=== PATIENT | male | born 1955 | race Caucasian/White ===

== ENCOUNTER 2022-03-30 09:52 | Outpatient (CLI) | payer MEDICARE, BC, SELFPAY ==
--- NOTE | 2022-03-30 10:05 | USCV_ITS ---
Jaleel Rhodes Age: 66 Gender: M : 1955 Exam Date: 03/30/2022 10:37 Ordering Phys: Orion Summers XX Technologist: Morteza Avila Exam Location: [facility] – [place] Indication: A FIB BP: 133 / 78 HR: 110 Rhythm: Atrial fibrillation Technical Quality: Adequate MEASUREMENTS (Male / Female) Normal Values 2D ECHO LV Diastolic Diameter PLAX 5.6 cm 4.2 - 5.9 / 3.9 - 5.3 cm LV Systolic Diameter PLAX 4.7 cm IVS Diastolic Thickness 0.8 cm 0.6 - 1.0 / 0.6 - 0.9 cm IVS Systolic Thickness 0.8 cm LVPW Diastolic Thickness 1.2 cm 0.6 - 1.0 / 0.6 - 0.9 cm LVPW Systolic Thickness 1.4 cm LVOT Diameter 2.0 cm LV Ejection Fraction 2D Teich 33.3 % LV Ejection Fraction MOD 2C 31.0 % LV Ejection Fraction 2C AL 31.4 % LA Diameter 3.3 cm LA Width 3.5 cm LA Height 5.6 cm RA Width 4.5 cm RA Height 4.6 cm Aorta at Sinotubular Diameter 2.1 cm IVC Diameter 1.6 cm M-MODE Aortic Annulus Diameter 2.5 cm LA Ao Ratio MM 1.4 MV E Point Septal Separation 0.6 cm DOPPLER AV Peak Velocity 138.0 cm/s LVOT Peak Velocity 70.0 cm/s AV Area Cont Eq vti 1.9 cm squared AV Area Cont Eq pk 1.6 cm squared MV Peak Velocity 107.0 cm/s MV E' Velocity 11.0 cm/s TR Peak Velocity 258.6 cm/s TR Peak Gradient 26.7 mmHg TR Mean Velocity 183.8 cm/s TR Mean Gradient 13.7 mmHg TR Velocity Time Integral 53.6 cm Right Atrial Pressure 3.0 mmHg Pulmonary Artery Systolic Pressu 29.7 mmHg RV Acceleration Time 0.1 s RV Ejection Time 0.2 s RV AcT/ET 0.4 FINDINGS Left Ventricle Severe diffuse hypokinesia of the left-ventricular with an ejection fraction of 31%. Mildly dilated LV cavity. Right Ventricle Normal right ventricular size and systolic function. Right Atrium Mildly increased right atrial size. Left Atrium Mildly increased left atrial size. Mitral Valve Thickened mitral valve. Mild mitral valve regurgitation. Aortic Valve Thickened aortic valve. Tricuspid Valve Trace tricuspid valve regurgitation. Pulmonic Valve Could not be visualized well Pericardium Normal pericardium without effusion. Aorta Normal ascending aorta dimension. IVC Normal inferior vena cava. CONCLUSIONS Severe diffuse hypokinesia of the left-ventricular with an ejection fraction of 31%. Mildly dilated LV cavity. Normal RV size and ejection fraction. Mild biatrial enlargement. Thickened aortic and mitral valves with mild mitral annular calcification. Mild mitral valve regurgitation. There is no pericardial effusion. There are no intracardiac masses. No similar previous studies are available for comparison Dr Moise Collins MD [facility] (Electronically Signed) Final Date: 31 March 2022 10:40 S
== END 2022-03-30 09:53 | disposition home or self-care (01) ==
PROVIDERS: PCP Nurse Practitioner Family; Visit Provider Family Medicine
DX: I48.91 Unspecified atrial fibrillation (principal); I08.0 Rheumatic disorders of both mitral and aortic valves
CPT/HCPCS: 93306

== ENCOUNTER → 2022-04-06 12:40 | Outpatient (BNVA) | payer MEDICARE, BC, SELFPAY | PROVIDERS: PCP Family Medicine; Visit Provider Internal Medicine Cardiovascular Disease | DX: I50.9 Heart failure, unspecified (principal); I48.91 Unspecified atrial fibrillation; F17.210 Nicotine dependence, cigarettes, uncomplicated; E66.9 Obesity, unspecified; Z68.35 Body mass index [BMI] 35.0-35.9, adult | CPT/HCPCS: 99204; 99205 ==

== ENCOUNTER 2022-04-20 06:11 | Outpatient (CLI) | payer MEDICARE, BC, SELFPAY ==
[2022-04-20 07:39] LABS: Basophils # 0.1 10^3/uL (0.0-0.1); Basophils % 0.5 %; Eosinophils # 0.3 10^3/uL (0.0-0.8); Eosinophils % 2.5 %; Hematocrit 52.3 % (42.0-52.0); Hemoglobin 17.7 g/dL (11.7-16.6); Lymphocytes # 2.1 10^3/uL (0.8-4.8); Lymphocytes % 19.3 %; Mean Corpuscular HGB Conc 33.8 g/dL (30.0-36.0); Mean Corpuscular Hemoglobin 30.5 pg (28.0-34.0); Mean Platelet Volume 10.9 fL (7.4-10.4); Monocytes # 1.1 10^3/uL (0.2-0.9); Monocytes % 9.9 %; Neutrophils # 7.22 10^3/uL (1.8-7.7); Neutrophils % 67.4 %; Nucleated Red Blood Cells % 0 %; Platelet Count 322 10^3/cmm (130-400); Red Blood Count 5.81 10^6/uL (4.1-5.3); Red Cell Distribution Width 13.8 % (12.1-15.1); White Blood Count 10.7 10^3/uL (4.0-10.0)
[2022-04-20 08:03] LABS: Anion Gap 15.5 (5-19); Blood Urea Nitrogen 19 mg/dL (8-23); Carbon Dioxide 23 mmol/L (22-29); Chloride 104 mmol/L (98-107); Glomerular Filtration Rate 83.9 mL/min (90-130); Glucose 129 mg/dL (65-115); Osmolality Calculated 290 mOsm/kg (285-295); Potassium 4.5 mmol/L (3.5-5.1); Sodium 138 mmol/L (136-145)
--- NOTE | 2022-04-20 09:09 | PC.NURSE ---
Around 0700: Patient here to have R/LHC with Dr. Winston. Patient failed to hold Xarelto prior to procedure, states last taken dose was on 04/[address] Winston notifed, orders received to reschedule patient. Patient rescheduled for 04/25 at 0830.
[2022-04-20 10:43] LABS: NT Pro B Type Natriuretic Pept 594 pg/mL (0-125)
== END 2022-04-20 06:12 | disposition home or self-care (01) ==
LOC: CCL 06:12
PROVIDERS: PCP Family Medicine; Visit Provider Internal Medicine Cardiovascular Disease
DX: R07.9 Chest pain, unspecified (principal); R06.02 Shortness of breath; Z53.8 Procedure and treatment not carried out for other reasons
CPT/HCPCS: 80048; 83735; 83880; 85025; J2250; J3010

== ENCOUNTER 2022-04-25 07:22 | Outpatient (CLI) | payer MEDICARE, BC, SELFPAY ==
[2022-04-25] VITALS (12 sets, daily range): BP systolic 114–140; BP diastolic 66–95; PULSE 84–99; RESP 15–19; TEMP 36.8; O2SAT 95–99; BMI 35.3
--- NOTE | 2022-04-25 07:30 | XACV_ITS ---
Exam Room: [facility] Ht: 188 cm Wt: 125 kg BSA: 2.59 m2 Gender: Male : 1955 Any Known Allergies: No known allergies Exam Priority: Routine Indication(s): - Cardiomyopathy Procedure(s): Procedure Description: Diagnostic procedure Procedure Description: Left Heart Catheterization Procedure Description: Right Heart Catheterization Procedure Description: Left ventriculography Procedure Description: O2 saturation Procedure Description: Coronary Angiography Diagnostic Cath Status: Elective Diagnostic Findings * No disease noted in the Left Main, Left Anterior Descending or Right coronary arteries. Minor luminal irregularities in circumflex artery. * Coronary angiography shows right dominance. Conclusions 1. No disease noted in the Left Main, Left Anterior Descending or Right coronary arteries. Minor luminal irregularities in circumflex artery. 2. 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 Recommendations * Continue current medical management and risk factor modification. Left Ventriculography Findings: * Left Ventriculogram not performed to minimize contrast use. Pressures Phase:Rest AO : 138 / 83 ( 106 ) @ 10:41:00 AM 132 / 81 ( 102 ) @ 10:41:00 AM 130 / 80 ( 101 ) @ 10:41:00 AM 131 / 82 ( 102 ) @ 10:41:00 AM LV : 138 / 3 / 8 @ 10:41:00 AM 141 / 1 / 14 @ 10:41:00 AM RV : 43 / 10 / 15 @ 10:12:00 AM PA : 47 / 21 ( 31 ) @ 10:11:00 AM RA : a wave = 19 v wave = 19 mean = 18 @ 10:13:00 AM PCW : a wave = 24 v wave = 24 mean = 22 @ 10:10:00 AM Hemodynamic Findings Normal pulmonary vascular resistance. Right atrial pressures are elevated at 18 mmHg. Pulmonary artery pressures are mildly elevated. Mean pulmonary artery pressure of 31 mmHg.. Pulmonary artery wedge pressures are mildly elevated at 22 mmHg.. No evidence of step up in saturations. O2 Content Phase:Rest PA : O2 Content O2: 62.0 @ 10:41:00 AM Saturations Phase:Rest AO : 84 @ 10:41:00 AM RA : 71 @ 10:41:00 AM RV : 64 @ 10:41:00 AM PA : 62 @ 10:41:00 AM Cardiac Output Phase:Rest Afsaneh : 6 @ 10:05:51 AM Afsaneh Cardiac Index: 2 @ 10:05:51 AM Flow Phase:Rest Qp : 6 @ 10:05:51 AM Qs : 11 @ 10:05:51 AM Valves Phase:DefaultPhase AV : 4.0 @ 10:05:50 AM 4.0 @ 10:05:51 AM AV Mean Gradient: 16.0 @ 10:05:50 AM 16.0 @ 10:05:51 AM AV Flow: 500 @ 10:05:50 AM AV Area: 2.8 @ 10:05:51 AM AV Area Index: 1.13 @ 10:05:51 AM Clinical Evaluation EBL: 5mL-10mL Procedural Details Procedure Consent Obtained. Admit Source: Out Patient. Pre-Procedure Time Out. Identified patient by full name and date of as verbalized by the patient/guarantor. Does the consent match the physician's order: Yes. Accurate & Complete Informed Consent: Yes. Inpatient/Outpatient History & Physical on Chart: Yes. If H&P is completed, is and addenduem needed: No; If yes, is the addendum complete: N/A. Visualize and Verify Site with Patient/Guarantor: N/A. Relevant Radiology Images available: N/A. The risks, benefits, and alternatives of sedation and/or procedure were discussed by physician. The patient agrees to continue. Procedure started. [facility] Clinical Fraility Score: 3: Managing Well. 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 Chest Pain Symptom Assessment: Atypical Angina. Cardiovascular Instability: No, stable. Correct patient, site and procedure confirmed by cath team. Current diagnosis: Cardiomyopathy. PERRLA. Strong, equal hand audio visual manager bilaterally. Lungs clear x 5 lobes. IV Site on Arrival: 18 gauge in the right anticubital. IV Site on Arrival: 20 gauge in the left anticubital. IV Fluids: 0.9% NaCl at KVO. 0 mL infused prior to director labor standards. Pre Procedural Pulses: bilateral dorsalis pedis was Doppled. Pre Procedural Pulses: bilateral posterior tibial was Doppled. Pre Procedural Pulses: bilateral radial was 3+. Oxygen off in preparation for RHC. right groin was prepped with chloroprep then draped in the usual sterile fashion. right radial was prepped with chloroprep then draped in the usual sterile fashion. right brachial was prepped with chloroprep then draped in the usual sterile fashion. Baseline sample Acquired. HR: 98 BPM. Physician notified. Current Diagnosis : Chest Pain. Baseline sample Acquired. HR: 108 BPM. Family updated by MD prior to the start of the procedure. Physician arrived. Equipment: 5F - Radial. Equipment: 6F - Radial. Cardiac Cath Pack. ACIST Manifold Kit Model BT 2000. Heparinized Saline (2 units/mL), 1000 mL bag. Physician scrubbed in. Immediate Pre-Procedure Time Out. Correct Patient: Yes; Correct Procedure: Yes; Correct Site: Yes; Correct Patient Position: Yes; Correct Supplies: Yes; Dried Flammable Prep: Yes; Blood Products Available: N/A;. Lidocaine 1% infiltrated to the right brachial. Wired access used from IV. Ainsworth-Tianna MON catheter inserted. Oximetry samples were obtained. Normal venous range: 60-85%. Normal arterial range: 95-100%. Pressure measurements obtained. Pressure measurements obtained. Oximetry samples were obtained. Normal venous range: 60-85%. Normal arterial range: 95-100%. Oximetry samples were obtained. Normal venous range: 60-85%. Normal arterial range: 95-100%. Pressure measurements obtained. Ainsworth-Tianna out. Lidocaine 1% infiltrated to the right radial. Arterial access obtained. Oximetry samples were obtained. Normal venous range: 60-85%. Normal arterial range: 95-100%. A 5 ethiopian TIG catheter in over wire. Multiple views taken of left coronary artery. Catheter redirected to the RCA. Multiple views taken of right coronary artery. MD Attempting to cross Valve into LV over the wire. EDP Sample taken: LV 138/3,8; HR: 102 BPM; SpO2: 98%. Pullback taken: LV 141/1,14; AO 138/83(106); Mean: 16mmHg, Peak to Peak: 4mmHg, SEP: 12sec/min; HR: 95 BPM; SpO2: 95%. Catheter removed over the standard wire. Physician review of films. Physician scrubbed out. A Manual Compression was successful obtaining hemostatsis at the Right Brachial Vein insertion site. A TR Band was successful obtaining hemostatsis at the Right Radial artery insertion site. Venous Sheath removed and manual pressure held until hemostasis was achieved. Sterile 4x4 and Op-site applied to the puncture site. No oozing or hematoma noted. Post sheath removal instructions were given and the patient verbalized understanding. TR band placed. Hemostasis obtained. Post Procedure: Pulses reassessed and unchanged. PERRLA. Strong, equal hand audio visual manager bilaterally. No VTE prophylaxis required. Post-op diagnosis: Non Obstuctive CAD. Complications: None. [id number]. Medication waste Fentany 50 mcg Heparin 1000 units Nitro 49.8 mg Lidocaine 2 ml. Total IV fluids: 60 mL. Fluoro: 8:00. Contrast type used: Omnipaque 300 mg/mL, 150 mL bottle. Estimated blood loss: 5mL-10mL. Responsiveness - Normal response to verbal stimuli; alert and oriented, PERRLA. Airway - Unaffected, no intervention required; spontaneous ventilation. Circulation: W/N/L, pulses unchanged. Nausea/Vomiting: No. Procedure completed. Patient transferred by wheelchair to CPRU. Vital chart was stopped. Access Site Site: Right Brachial Vein Sheath Size: 6 Fr Hemostasis Method: Manual Compression Hemostasis Success: Successful Site: Right Radial artery Sheath Size: 6 Fr Hemostasis Method: TR Band Hemostasis Success: Successful Procedure Medications Start: 9:10 AM Stop: 9:10 AM Medication: Versed Amount: 1 mg Route: I.V. Start: 9:01 AM Stop: 9:01 AM Medication: Versed 1 mg and Fentanyl 25 mcg Amount: 1 Route: I.V. Start: 9:20 AM Stop: 9:20 AM Medication: Fentanyl Amount: 25 mcg Route: I.V. Start: 9:27 AM Stop: 9:27 AM Medication: Nitrogylcerin Amount: 200 mcg Route: I.A. Start: 9:30 AM Stop: 9:30 AM Medication: Heparin Amount: 5000 units Route: I.V. I, the attending physician, have reviewed and verified all procedure medications. Yes, all medications given per verbal order History/Risk Factors Hypertension: No Dyslipidemia: No Peripheral Arterial Disease (PAD): No Myocardial Infarction (AZ): No Obesity: Yes Renal Disease: No Tobacco Use: Current/Recent(w/in 1 year) Prior Interventions PCI: No CABG: No Valve Surgery: No Report Signatures Finalized by Kiara Winston MD on 04/26/2022 04:19 PM
[2022-04-25] MEDS: diphenhydrAMINE 50 mg Capsule PO (08:12)
--- NOTE | 2022-04-25 08:47 | W.PM.OPSUD ---
Surgery/Procedure H&P Update DATE OF PROCEDURE: April 25, 2022 DATE H&P PERFORMED: 04/06/22 H&P UPDATE INFORMATION: I have reviewed H&P completed within last 30 days, I have examined patient prior to procedure and No changes to prior documentation PREOP DIAGNOSIS: Newly diagnsoed cardiomyopathy PRIMARY INDICATION FOR PROCEDURE: Newly diagnosed cardiomyopathy PLANNED PROCEDURE: Operation Date: 04/25/22 08:30 Proposed Procedures p Cardiac Catheterization(Bilateral) - Kiara Winston MD PATIENT REASSESSED PRIOR TO SEDATION, WITH NO CHANGE NOTED: Yes PHYSICAL EXAM: alert, oriented x 3, clear to auscultation bilaterally and regular rate & rhythm AIRWAY EVAL/ANESTHESIA PLAN: normal airway (Airway 4), ASA III, Monitored Anesthesia, Local Anesthesia, Risks, benefits & alternatives of sedation and/or procedure discussed and Patient agrees to continue as planned
[2022-04-25 09:41] LABS: Alveolar-Arterial Oxygen Gradi 9.6 mmHg (5-10); Arterial Blood Gas Hematocrit 52.7 % (42-52); Blood Gas Allen Test Pos; Blood Gas Operator Identificat glc; Blood Gas Sample Type Arterial; Carboxyhemoglobin 2.8 %THgb (0.4-20.1); HGB O2 Sat 68.9 % (95-100); Methemoglobin 0.6 % (0.4-1.5); Total Hemoglobin 17.2 g/dL (14-18)
[2022-04-25 09:47] LABS: Alveolar-Arterial Oxygen Gradi 8.7 mmHg (5-10); Arterial Blood Gas Hematocrit 59.7 % (42-52); Blood Gas Allen Test Pos; Blood Gas Operator Identificat glc; Blood Gas Sample Type Arterial; Carboxyhemoglobin 2.7 %THgb (0.4-20.1); Methemoglobin 0.6 % (0.4-1.5); Total Hemoglobin 19.5 g/dL (14-18)
[2022-04-25 09:51] LABS: Alveolar-Arterial Oxygen Gradi 8.9 mmHg (5-10); Arterial Blood Gas Hematocrit 52.6 % (42-52); Blood Gas Operator Identificat glc; Blood Gas Sample Type Arterial; Carboxyhemoglobin 2.8 %THgb (0.4-20.1); HGB O2 Sat 61.6 % (95-100); Methemoglobin 0.6 % (0.4-1.5); Total Hemoglobin 17.2 g/dL (14-18)
[2022-04-25 09:54] LABS: Blood Gas Operator Identificat glc; Blood Gas Sample Type Arterial; Carboxyhemoglobin 2.7 %THgb (0.4-20.1); Methemoglobin 0.6 % (0.4-1.5)
[2022-04-25 09:58] LABS: Blood Gas Sample Site AO
[2022-04-25 09:58] LABS: Blood Gas Sample Site RV
[2022-04-25 09:59] LABS: Blood Gas Sample Site PA
[2022-04-25 09:59] LABS: Blood Gas Sample Site RA
--- NOTE | 2022-04-25 10:04 | SUR.PHASEII ---
RECEIVED THE PATIENT BACK FROM THE SAND WORKER S/P R & LHC VIA WHEELCHAIR. PATIENT AMBULATED TO THE BED. PLEATING SUPERVISOR PLACED AND VITAL SIGNS OBTAINED. PATIENT A & O X3. SLIGHTLY DROWSY. BULKY PRESSURE DRESSING TO THE RIGHT AC FROM THE 6 FR VENOUS SHEATH. TR BAND TO THE RIGHT RADIAL INTACT. NO BLEEDING OR HEMATOMA NOTED. ACTIVITY RESTRICTIONS GIVEN TO THE PATIENT WITH HIS VERBALIZATION. FAMILY AT BEDSIDE ALONG WITH DR DONAHUE. NO OTHER ASSESSMENT CHANGES NOTED FROM PRE CATH.
--- NOTE | 2022-04-25 11:16 | SUR.PHASEII ---
PATIENT AMBULATED TO THE RESTROOM TO VOID A 1100. ONCE BACK TO THE ROOM, THIS NURSE STARTED LETTING THE AIR OUT OF THE TR BAND PER PROTOCOL. NO OTHER ASSESSMENT CHANGES
--- NOTE | 2022-04-25 12:03 | SUR.PHASEII ---
PATIENT UP AT THE BEDSIDE TO EAT LUNCH. TR BAND OFF PER PROTOCOL. SITE SOFT WITH NO BLEEDING OR HEMATOMA NOTED. PALPABLE RADIAL PULSE. BANDAID APPLIED TO THE SITE. ACTIVITY INSTRUCTIONS GIVEN TO THE PATIENT WITH HIS UNDERSTANDING VERBALIZED. SPOUSE AND DAUGHTER REMAIN AT BEDSIDE.
[2022-05-03 10:25] LABS: Blood Urea Nitrogen 14 mg/dL (8-23); Calcium 9.2 mg/dL (8.5-10.5); Carbon Dioxide 28 mmol/L (22-29); Chloride 99 mmol/L (98-107); Glomerular Filtration Rate 96.1 mL/min (90-130); Glucose 147 mg/dL (65-115); Osmolality Calculated 285 mOsm/kg (285-295); Sodium 136 mmol/L (136-145)
[2022-05-03 10:31] LABS: Anion Gap 13.7 (5-19); Potassium 4.7 mmol/L (3.5-5.1)
== END 2022-04-25 13:06 | disposition home or self-care (01) ==
PROVIDERS: PCP Family Medicine; Visit Provider Internal Medicine Cardiovascular Disease
DX: I42.9 Cardiomyopathy, unspecified (principal); I50.9 Heart failure, unspecified; E66.9 Obesity, unspecified; Z68.35 Body mass index [BMI] 35.0-35.9, adult; I48.91 Unspecified atrial fibrillation; Z79.82 Long term (current) use of aspirin; F17.210 Nicotine dependence, cigarettes, uncomplicated
CPT/HCPCS: 36415; 82810; 93460; 96360; 96361; 99152; 99153; C1751; C1769; C1887; C1894; J1644; J2250; J3010; J3490; J7030; Q0163; Q9967

== ENCOUNTER → 2022-05-03 08:55 | Outpatient (BNVA) | payer MEDICARE, BC, SELFPAY | PROVIDERS: PCP Family Medicine; Visit Provider Nurse Practitioner Family | DX: I48.91 Unspecified atrial fibrillation (principal); I27.20 Pulmonary hypertension, unspecified; I50.9 Heart failure, unspecified; F17.210 Nicotine dependence, cigarettes, uncomplicated | CPT/HCPCS: 80048; 99214 ==

== ENCOUNTER → 2022-08-10 14:24 | Outpatient (BNVA) | payer MEDICARE, SELFPAY | PROVIDERS: PCP Family Medicine; Visit Provider Internal Medicine Cardiovascular Disease | DX: I50.9 Heart failure, unspecified (principal); I48.91 Unspecified atrial fibrillation; E66.9 Obesity, unspecified; Z68.34 Body mass index [BMI] 34.0-34.9, adult | CPT/HCPCS: 36415; 80048; 80162; 83735; 83880; 99214 ==

== ENCOUNTER 2022-09-13 13:10 | Outpatient (CLI) | payer MEDICARE, SELFPAY ==
--- NOTE | 2022-09-13 13:30 | USCV_ITS ---
Jaleel Rhodes Age: 66 Gender: M : 1955 Exam Date: 09/13/2022 13:37 Ordering Phys: Kiara Winston MD ([email or web address]) Technologist: Sinai Cortez [place] [facility] [place]: Evaluate LV function BP: 148 / 88 HR: 121 Rhythm: Atrial fibrillation Technical Quality: Adequate MEASUREMENTS (Male / Female) Normal Values 2D ECHO LV Diastolic Diameter PLAX 5.4 cm 4.2 - 5.9 / 3.9 - 5.3 cm LV Systolic Diameter PLAX 3.1 cm IVS Diastolic Thickness 1.0 cm 0.6 - 1.0 / 0.6 - 0.9 cm IVS Systolic Thickness 1.3 cm LVPW Diastolic Thickness 0.9 cm 0.6 - 1.0 / 0.6 - 0.9 cm LVPW Systolic Thickness 1.7 cm LVOT Diameter 2.1 cm LV Ejection Fraction 2D Teich 72.4 % LV Ejection Fraction MOD 2C 47.4 % LV Ejection Fraction 2C AL 49.8 % LA Diameter 5.0 cm LA Width 4.4 cm LA Height 5.9 cm RA Width 4.3 cm RA Height 4.8 cm Aorta at Sinotubular Diameter 3.4 cm FINDINGS Left Ventricle Normal left ventricular cavity size. Mildly decreased left ventricular systolic function. Left ventricular ejection fraction is estimated at 45-50%. Mild global hypokinesis. Right Ventricle Normal right ventricular size and systolic function. Right Atrium Normal right atrial size. Left Atrium Moderately increased left atrial size. Mitral Valve Mild mitral annular calcification. Structurally normal mitral valve. Aortic Valve Structurally normal trileaflet aortic valve. Tricuspid Valve Structurally normal tricuspid valve. Pulmonic Valve Pulmonic valve not well visualized. Pericardium No pericardial effusion. Aorta Normal size aortic root and proximal ascending aorta. IVC Inferior vena cava not visualized. CONCLUSIONS 1. This is a technically difficult study. Optison was used per protocol. 2. Normal left ventricular cavity size. Mildly decreased left ventricular systolic function. Left ventricular ejection fraction is estimated at 45-50%. Mild global hypokinesis. 3. When compared to study dated 03/30/22, left ventricular systolic function has improved from 31% then. Kiara Winston MD (Electronically Signed) Final Date: 19 September 2022 17:35 S
[2022-09-13] MEDS: perflutren protein-a microsphr 0.22 mg/mL SDV 3 mL IV (14:38)
== END 2022-09-13 13:11 | disposition home or self-care (01) ==
LOC: RAD 13:11
PROVIDERS: PCP Family Medicine; Visit Provider Internal Medicine Cardiovascular Disease
DX: I50.9 Heart failure, unspecified (principal)
CPT/HCPCS: C8924; Q9956

== ENCOUNTER → 2022-11-09 14:27 | Outpatient (BNVA) | payer MEDICARE, SELFPAY | PROVIDERS: PCP Family Medicine; Visit Provider Nurse Practitioner Family | DX: I48.91 Unspecified atrial fibrillation (principal); F17.210 Nicotine dependence, cigarettes, uncomplicated; I50.9 Heart failure, unspecified; Z79.01 Long term (current) use of anticoagulants | CPT/HCPCS: 99214 ==

== ENCOUNTER 2023-03-27 15:59 | Emergency (ER) | payer MEDICARE, SELFPAY ==
--- NOTE | 2023-03-27 16:04 | ECG_ITS ---
Test Date: 2023-03-27 Pat Name: Jaleel Rhodes Department: Room: Gender: Male Director Independent: : 1955 Requested By: Ryder Pennington Order Number: [id number] Belen MD: Moise Collins M.D. Measurements Intervals [place] Rate: 107 P: 0 [place]: 0 QRS: 11 QRSD: 102 T: 4 QT: 334 QTc: 446 Interpretive Statements ATRIAL FIBRILLATION WITH RAPID VENTRICULAR RESPONSE NONSPECIFIC ST & T-WAVE ABNORMALITY ABNORMAL RHYTHM ECG No previous ECG available for comparison Electronically Signed On 03-28-2023 19:59:03 CDT by Moise Collins M.D. [id number]
[2023-03-27 16:06] VITALS: BP 122/65; PULSE 107; RESP 17; TEMP 36.4; O2SAT 96; BMI 33.7
--- NOTE | 2023-03-27 16:24 | ED_ITS ---
HPI - Chest Pain General: Chief Complaint: Chest Pain Stated Complaint: chest and back pain Time Seen by Provider: 03/27/23 16:22 Source: patient Mode of arrival: ambulatory Limitations: no limitations History of Present Illness: This patient presents to the emergency department because of chest pain. He states the chest pain has been present for approximately 2 weeks continuous. He states is not affected by activity deep breaths etc. He states it is a dull ache and is present continuously. He denies any inciting events such as lifting twisting turning falls or other injury. He does deny this to be ripping or tearing in nature. He is a current smoker denies cough or fever. He has no notable history of atrial fibrillation or congestive heart failure and has been faithful to all his medications. He denies any associated sweating nausea vomiting etc. He does have heartburn in the past but this does not feel like heartburn type pain that he is experienced. Cotton he is had normal urinary bowel habits and no other constitutional complaints. MD complaint: chest heaviness Timing of current episode: constant Quality: heaviness Associated symptoms: Deny abdominal pain, dyspnea, fever(s), nausea, palpitations or vomiting Risk Factors: Coronary artery disease risk factors: smoking history Review of Systems Const: Denies: fever(s) or chills ENMT: Denies: throat pain, odynophagia, nasal congestion or nasal obstruction Card: Reports: chest pain and irregular heart rhythm; Denies: palpitations, dyspnea on exertion or orthopnea Resp: Denies: dyspnea, productive cough, non-productive cough or wheezing GI: Denies: abdominal pain, nausea, vomiting or diarrhea : Denies: flank pain, difficulty urinating or dysuria Musc: Denies: neck pain, extremity pain or extremity swelling Skin/Breast: Denies: rash Neuro: Denies: headache(s), numbness in extremities or weakness in extremities PFS ED PFSH: Medical History Atrial fibrillation CHF (congestive heart failure), NYHA class III Obesity Tobacco abuse Social History Smoking and tobacco status: current every day smoker (0.5 ppd X >50 years) cigarettes Packs smoked per day: 0.5 [ Other cigarette details: >50 years] Physical Exam Narrative: EXAM NARRATIVE: Healthy-appearing individual who answers questions in a goal-directed fashion and appears to be comfortable. Const: COMMON NORMALS: no acute distress, patient oriented x3 and alert GENERAL APPEARANCE: cooperative and comfortable NUTRITIONAL APPEARANCE: overweight HENMT: COMMON NORMALS: normocephalic, Normal nasal mucous membranes and turbinates present, moist oral mucous membranes and oropharynx normal HEAD & SCALP: normocephalic FACE & SINUS: normal facial exam NOSE: Normal nasal mucous membranes and turbinates present Eye: COMMON NORMALS: Equal, round and reactive pupils present, EOMs intact bilaterally and conjunctivae normal CONJUNCTIVA: Yes conjunctivae normal PUPIL: Yes Equal, round and reactive pupils present Neck/C-Spine: COMMON NORMALS: full ROM, no meningeal signs and Thyroid normal THYROID: Thyroid normal Chest: COMMONS NORMALS: normal inspection of the chest, normal palpation of entire chest wall and normal inspection of the breasts Breast/axilla inspecti on: Yes normal inspection of the breasts Resp: COMMON NORMALS: normal respiratory effort, No retractions, No use of accessory muscles and clear to auscultation bilaterally AUSCULTATION: clear to auscultation bilaterally Cardio: COMMON NORMALS: regular rate, No murmurs present (Cardio) and Peripheral pulses 2+ throughout RATE: regular rate PERIPHERAL PULSES: Peripheral pulses 2+ throughout GI: COMMON NORMALS: Normal to inspection, nondistended, normoactive bowel sounds present, Soft to palpation and non-tender PALPATION: Yes Soft to palpation : COMMON NORMALS: Yes no CVA tenderness BLADDER/KIDNEY EXAM: Yes no CVA tenderness Back/Pelvis: COMMON NORMALS: no CVA tenderness, thoracic and lumbar spine normal to inspection, no thoracic nor lumbar tenderness, thoraco-lumbar ROM normal and straight leg raise negative bilaterally Extremity: COMMON NORMALS: normal to inspection, full ROM, capillary refill normal, no clubbing, cyanosis or edema, no calf tenderness and no pedal edema Neuro: COMMON NORMALS: patient oriented x3, moves all extremities, no focal motor deficits and no sensory deficits noted SENSORIUM/ORIENTATION: Yes alert MENINGEAL SIGNS: Yes no meningeal signs CRANIAL NERVES: Yes CN normal except as noted Psych: COMMON NORMALS: mental status grossly normal Skin: COMMON NORMALS: no rashes or lesions noted, no wounds and turgor normal GENERAL SKIN EXAM: no rashes or lesions noted and turgor normal Course Reevaluation(s): Reevaluation #1: Patient CT scan and other findings were reviewed. I had a discussion with patient and accompanying family regarding his CT scan results and implications and likely diagnosis. I answered questions to the best of my ability at this time but stated that additional work-up to include oncology and pulmonology will be important to get a definitive diagnosis and then a treatment plan. They agreed to start with our resources here locally and then either continue therapy and/or be referred as indicated. He is stable at this time. I will provide him analgesics for his pain. Again no evidence of thromboembolic disease, great vessel vessel disease, ACS, pneumonia or other potential etiologies of his presentation. Time: 19:39 Vital Signs: Vital signs: Vital Signs Temperature 97.5 F L 03/27/23 16:06 Pulse Rate 99 03/27/23 17:30 Respiratory Rate 23 H 03/27/23 17:30 Blood Pressure 148/92 03/27/23 17:30 Pulse Oximetry 90 03/27/23 17:30 Oxygen Delivery Me thod Room Air 03/27/23 17:17 MDM - Chest Pain Medical Decision Making Patient presents to the emergency department because of 2 weeks of chest heaviness and associated back pain. Has a history of atrial fibrillation as well as CHF. He is currently a tobacco user. There was no associated findings such as cough fever weight loss etc. Differential diagnosis included ACS, thromboembolic phenomena, and pneumonia, CHF, mass lesion etc. Work-up was initiated to evaluate for these possible etiologies. EKG, troponins other ancillary laboratories were reassuring. Has a nature of his symptoms a contrasted CT was obtained which did reveal right chest mass with potential metastasis to vertebral column and potential involvement of adrenals either as a secondary or primary etiology. This information was shared with patient and family. He will be discharged to home with consultations placed with case management for oncology and pulmonology. All questions were answered to the best of my ability and he is stable at this time to be discharged. Medical Records I reviewed the patient's medical records. Lab Data I reviewed the patient's lab results. 03/27/23 16:58 03/27/23 16:58 Radiology Impressions Chest CTA 03/27/23 16:57 IMPRESSION: 1. No pulmonary embolism. 2. Spiculated lesion in the right apical lung representing likely a neoplasm measuring 5.3 x 6.4 x 5.6 cm. 3. Mediastinal lymphadenopathy. 4. Bilateral adrenal nodules, likely metastatic with surrounding fat stranding may represent superimposed infection/inflammation. 5. Sclerosis of T5 and T6 vertebra likely representing metastatic disease. COMMENTS: 1. Consistent with the [employer]'s Incidental Findings Committee white paper (J Am Kya Radiol 2018): Any incidental renal lesion less than 1 cm or classified as too small to characterize, or any incidental cystic renal lesion characterized as simple-appearing, is likely benign. No follow-up imaging is recommended for these lesions per consensus recommendations based on imaging criteria. 2. In the absence of a history or active diagnosis of lung cancer, it is recommended that this patient with emphysema be evaluated for enrollment in a low dose CT lung cancer screening program. Laboratory Results WBC 11.42 10^3/uL (3.29-11.43) 03/27/23 16:58 RBC 5.33 10^6/uL (3.85-5.65) 03/27/23 16:58 Hgb 16.10 g/dL (11.27-16.99) 03/27/23 16:58 Hct 48.9 % (37-53) 03/27/23 16:58 MCV 91.7 fl (82-101) 03/27/23 16:58 MCH 30.2 pg (27-33) 03/27/23 16:58 MCHC 32.9 g/dL (30-55) 03/27/23 16:58 RDW 13.4 % (12.1-15.1) 03/27/23 16:58 Plt Count 279 10^3/cmm (157-399) 03/27/23 16:58 MPV 10.8 fL (7.4-10.4) H 03/27/23 16:58 Neut % (Auto) 73.2 % 03/27/23 16:58 Lymph % (Auto) 14.2 % 03/27/23 16:58 Bremer % (Auto) 9.3 % 03/27/23 16:58 Eos % (Auto) 2.4 % 03/27/23 16:58 Baso % (Auto) 0.5 % 03/27/23 16:58 Neut # (Auto) 8.36 10^3/uL (1.8-7.7) H 03/27/23 16:58 Lymph # (Auto) 1.6 10^3/uL (0.8-4.8) 03/27/23 16:58 Bremer # (Auto) 1.1 10^3/uL (0.2-0.9) H 03/27/23 16:58 Eos # (Auto) 0.3 10^3/uL (0.0-0.8) 03/27/23 16:58 Baso # (Auto) 0.1 10^3/uL (0.0-0.1) 03/27/23 16:58 Nucleated RBC % (auto) 0 % 03/27/23 16:58 Nucleated RBCs # 0.0 /100WBC 03/27/23 16:58 Sodium 141 mmol/L (136-145) 03/27/23 16:58 Potassium 4.6 mmol/L (3.5-5.1) 03/27/23 16:58 Chloride 104 mmol/L (98-107) 03/27/23 16:58 Carbon Dioxide 24 mmol/L (22-29) 03/27/23 16:58 Anion Gap 17.6 (5-19) 03/27/23 16:58 BUN 11 mg/dL (8-23) 03/27/23 16:58 Creatinine 0.8 mg/dL (0.7-1.2) 03/27/23 16:58 GFR Calculation 95.8 mL/min (90-130) 03/27/23 16:58 Glucose 106 mg/dL (65-115) 03/27/23 16:58 Calculated Osmolality 292 mOsm/kg (285-295) 03/27/23 16:58 Calcium 9.0 mg/dL (8.5-10.5) 03/27/23 16:58 Magnesium 2.0 mg/dL (1.7-2.3) 03/27/23 16:58 Troponin T Baseline 10 ng/L (0-15) 03/27/23 16:58 Troponin T 120 Minute 8.18 ng/L (0-15) 03/27/23 19:04 TSH 1.04 uIU/mL (0.27-4.20) 03/27/23 16:58 EKG Data EKG 1: I personally reviewed and interpreted this EKG as follows: Interpretation: Contemporaneous review of EKG reveals a ventricular rate of 107 bpm consistent with atrial fibrillation with a rapid ventricular response. There are no acute ST-T wave changes at this time. Discharge Plan Discharge Patient Disposition: Home Clinical Impression: Chest mass, Chest pain Condition: Stable Prescriptions: New hydrocodone-acetaminophen 7.5-325 mg tablet 1 tab PO Q8H PRN (Reason: pain) Qty: 20 0RF No Action diclofenac sodium [Arthritis Pain (diclofenac)] 1 % gel 2 g topical QID PRN (Reason: Pain) Rx Instructions: apply to single elbow, wrist or hand; for hand includes palm/fingers/back of hand multivitamin Tablet 1 tab PO DAILY acetaminophen 325 mg tablet 325 mg PO QID PRN (Reason: Pain) spironolactone 25 mg tablet 12.5 mg PO DAILY Qty: 90 1RF metoprolol succinate 100 mg tablet extended release 24 hr 100 mg PO BID Qty: 180 3RF Rx Instructions: Take in addition to 25mg tab BID to equal 125mg BID metoprolol succinate 25 mg tablet extended release 24 hr 25 mg PO BID Qty: 180 3RF Rx Instructions: Take in addition to 100mg tab BID to equal 125mg BID Entresto 49-51 mg tablet 1 tab PO BID Qty: 180 1RF digoxin 125 mcg (0.125 mg) tablet 125 mcg PO DAILY Qty: 90 3RF Xarelto 20 mg tablet 20 mg PO DAILY Qty: 90 3RF Rx Instructions: must administer with evening meal Discharge Orders: Discharge ED (Routine); Ordered 03/27/23 Ordered By: Ryder Pennington Referrals: Orion Summers [Primary Care Provider] - Discharge Diet: Usual diet Discharge Activity: Resume usual activity Patient Instructions: Opioid Safety, Pain Management Activity Restrictions/Additional Instructions: As we discussed you have a potential tumor in your chest that is likely cancerous. We have placed a consultation to case management who will arrange oncology and or pulmonology consultations and should contact you in the next few days with those arrangements. We have provided a medication to help with your pain. If you develop any new or worsening symptoms you are welcome to return to the emergency department at any time for reevaluation. Coding Level of Care Code ED [employer] Developer for Александр Maldonado
--- NOTE | 2023-03-27 16:24 | XR_ITS ---
WS: [id number] EXAMINATION: XR chest 1V portable [id number] REASON FOR EXAM: cp COMPARISON: None available. ORDER DATE: 03/27/2023 4:27 PM FINDINGS: There are scattered small bulla and linear atelectatic changes. There are chronically increased perih ilar /basilar bronchovascular and interstitial thickening with hyperinflation and few bulla are noted . There is a diffuse opacity with slightly irregular shape at least 3 cm in diameter in the right upp er lobe a portion of which is obscured by the right costosternal junction. The cardiac and mediastin al outlines are unremarkable. There are no pleural effusions. There are no discrete noncalcified pulm onary nodules. Chronic degenerative spine changes are present. IMPRESSION: DIFFUSE PULMONARY CHANGES OF COPD. NODULAR OPACITIES ARE SEEN IN THE RIGHT UPPER LOBE RECOMMEND CT IM AGING CORRELATION
[2023-03-27 16:47] VITALS: BP 113/71; PULSE 102; RESP 20; O2SAT 98
--- NOTE | 2023-03-27 16:57 | CTR_ITS ---
PROCEDURE INFORMATION: Exam: CTA Chest With Contrast Exam date and time: 03/27/2023 6:14 PM Age: 67 years old Clinical indication: Pain; Chest pressure; Additional info: Chest pain TECHNIQUE: Imaging protocol: Computed tomographic angiography of the chest with contrast. Exam focused on the arteries. 3D rendering (Not supervised by radiologist): MIP and/or 3D reconstructed images were created by the technologist. Radiation optimization: All CT scans at this facility use at least one of these dose optimization techniques: automated exposure control; mA and/or kV adjustment per patient size (includes targeted exams where dose is matched to clinical indication); or iterative reconstruction. Contrast material: OMNI 350; Contrast volume: 100 ml; Contrast route: INTRAVENOUS (IV); REPORTING DATA: Count of CT and Cardiac NM exams in prior 12 months: This patient has received 0 known CTs and 0 known cardiac nuclear medicine studies in the 12 months prior to the current study. COMPARISON: CR XR chest 1V portable [id number] 03/27/2023 4:32 PM RADIATION DOSE METRICS: Total DLP (mGy-cm): 563.78 FINDINGS: Pulmonary arteries: Normal. No pulmonary emboli. Aorta: Atherosclerotic calcification of the aortic arch. Lungs: Emphysematous changes in bilateral lungs. A spiculated lesion measuring 5.3 x 6.4 x 5.6 cm in the right apical lung. Pleural spaces: Unremarkable. No pneumothorax. No pleural effusion. Heart: Unremarkable. No cardiomegaly. No pericardial effusion. Lymph nodes: Multiple lymph nodes in the mediastinum and bilateral hilar region the largest measures 2.5 cm in the right hilum. Spleen: Calcified granulomas in the spleen. Adrenal glands: Left adrenal nodule measuring 2.4 by 2.1 cm Right adrenal nodule measuring 4.7 x 3.0 cm. Kidneys and ureters: Cyst at the lower pole of the left kidney measuring 8.8 cm. Bones/joints: Sclerosis of the T5 and T6 vertebra extending into the posterior elements suspicious for metastatic disease. Soft tissues: Unremarkable. CT/CT angio chest PE protcl [id number] IMPRESSION: 1. No pulmonary embolism. 2. Spiculated lesion in the right apical lung representing likely a neoplasm measuring 5.3 x 6.4 x 5.6 cm. 3. Mediastinal lymphadenopathy. 4. Bilateral adrenal nodules, likely metastatic with surrounding fat stranding may represent superimposed infection/inflammation. 5. Sclerosis of T5 and T6 vertebra likely representing metastatic disease. COMMENTS: 1. Consistent with the [employer]'s Incidental Findings Committee white paper (J Am Kya Radiol 2018): Any incidental renal lesion less than 1 cm or classified as too small to characterize, or any incidental cystic renal lesion characterized as simple-appearing, is likely benign. No follow-up imaging is recommended for these lesions per consensus recommendations based on imaging criteria. 2. In the absence of a history or active diagnosis of lung cancer, it is recommended that this patient with emphysema be evaluated for enrollment in a low dose CT lung cancer screening program.
[2023-03-27 17:17] VITALS: BP 165/116; PULSE 100; RESP 20; O2SAT 98
[2023-03-27 17:29] LABS: Basophils # 0.1 10^3/uL (0.0-0.1); Basophils % 0.5 %; Eosinophils # 0.3 10^3/uL (0.0-0.8); Eosinophils % 2.4 %; Hematocrit 48.9 % (37-53); Lymphocytes # 1.6 10^3/uL (0.8-4.8); Lymphocytes % 14.2 %; Mean Corpuscular HGB Conc 32.9 g/dL (30-55); Mean Corpuscular Hemoglobin 30.2 pg (27-33); Mean Corpuscular Volume 91.7 fl (82-101); Mean Platelet Volume 10.8 fL (7.4-10.4); Monocytes # 1.1 10^3/uL (0.2-0.9); Monocytes % 9.3 %; Neutrophils # 8.36 10^3/uL (1.8-7.7); Neutrophils % 73.2 %; Nucleated Red Blood Cells % 0 %; Platelet Count 279 10^3/cmm (157-399); Red Blood Count 5.33 10^6/uL (3.85-5.65); Red Cell Distribution Width 13.4 % (12.1-15.1); White Blood Count 11.42 10^3/uL (3.29-11.43)
[2023-03-27 17:30] VITALS: BP 148/92; PULSE 99; RESP 23; O2SAT 90
[2023-03-27 17:56] LABS: Troponin(5th) Baseline 10 ng/L (0-15)
[2023-03-27 18:06] LABS: Anion Gap 17.6 (5-19); Blood Urea Nitrogen 11 mg/dL (8-23); Carbon Dioxide 24 mmol/L (22-29); Chloride 104 mmol/L (98-107); Glomerular Filtration Rate 95.8 mL/min (90-130); Glucose 106 mg/dL (65-115); Osmolality Calculated 292 mOsm/kg (285-295); Potassium 4.6 mmol/L (3.5-5.1); Sodium 141 mmol/L (136-145); Thyroid Stimulating Hormone 1.04 uIU/mL (0.27-4.20)
[2023-03-27] MEDS: iohexol 350 mg/mL 500 mL Btl (per mL) IV (18:20)
--- NOTE | 2023-03-27 18:25 | ECG_ITS ---
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 Measurements Intervals [place] Rate: 97 P: 0 WV: 0 QRS: 42 QRSD: 100 T: 87 QT: 348 QTc: 443 Interpretive Statements ATRIAL FIBRILLATION NONSPECIFIC T-WAVE ABNORMALITY ABNORMAL RHYTHM ECG Compared to ECG 03/27/2023 16:04:04 No significant changes Electronically Signed On 03-28-2023 20:31:28 CDT by Moise Collins M.D. [email or web address]
[2023-03-27 19:41] LABS: Troponin 5 2HR 8.18 ng/L (0-15); Troponin 5 2HR Delta -1.82 ABS# (0-10)
[2023-03-27] MEDS: HYDROcodone-acetaminophen 7.5-325 mg Tablet 1 TAB PO (20:10)
[2023-03-27 20:11] VITALS: BP 171/87; PULSE 97; RESP 20; O2SAT 97
--- NOTE | 2023-03-29 09:44 | DCPLANNER ---
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 Conner on 04/03. Dr. Conner ordered PFTs and a PET scan. We are waiting for pathology confirmation prior to being able to schedule him in oncology. Thank you. Addendum entered by Leeanna Romano 04/04/23 12:43: Patient had a follow up appointment scheduled with pulmonology - patient did attend appointment. Original Note: tire center manager had message to schedule a follow up appointment for patient with oncology and pulmonology. tire center manager sent patients information to the front office staff of oncology and pulmonology. Patients information will be printed and reviewed. Clinic will call patient with appointment information.
== END 2023-03-27 20:12 | disposition home or self-care (01) ==
PROVIDERS: Emergency Provider Emergency Medicine; PCP Family Medicine
DX: R07.9 Chest pain, unspecified (principal); R22.2 Localized swelling, mass and lump, trunk; I50.9 Heart failure, unspecified; F17.210 Nicotine dependence, cigarettes, uncomplicated
CPT/HCPCS: 36415; 71045; 71275; 80048; 83735; 84443; 84484; 85025; 93005; 99285; Q9967

== ENCOUNTER → 2023-04-03 14:00 | Outpatient (BNVA) | payer MEDICARE, SELFPAY | PROVIDERS: PCP Family Medicine; Referring Provider Emergency Medicine; Visit Provider Internal Medicine Pulmonary Disease | DX: J43.9 Emphysema, unspecified (principal); R91.8 Other nonspecific abnormal finding of lung field; I50.9 Heart failure, unspecified; I27.20 Pulmonary hypertension, unspecified; G89.3 Neoplasm related pain (acute) (chronic); F17.210 Nicotine dependence, cigarettes, uncomplicated | CPT/HCPCS: 99204 ==

== ENCOUNTER 2023-04-14 06:02 | Outpatient (CLI) | payer MEDICARE, SELFPAY ==
--- NOTE | 2023-04-14 11:30 | PETR_ITS ---
PROCEDURE INFORMATION: Exam: PET/CT Skull Base to Mid-thigh Exam date and time: 04/14/2023 11:48 AM Age: 67 years old Clinical indication: Abnormal findings; Abnormal finding of lung field; Additional info: Lung mass LABS AND CLINICAL REPORTS: Glucose: 98 mg/dl Treatment strategy for malignancy (PET staging): Initial Staging (PI) TECHNIQUE: Imaging protocol: Following at least four-hour fasting and following the injection of radiopharmaceutical, low dose CT images were obtained. Then, PET images were obtained. Attenuation corrected images were constructed using the CT scan. Fused images of PET and CT were reviewed. The standardized uptake values (SUV) reported below are maximum values within a region of interest, expressed in gm/ml. Exam includes orbital meatal line to mid-thigh. Radiopharmaceutical: 15.1 mCi F-18 FDG (Fluorodeoxyglucose), IV. Time of imaging post radiopharmaceutical administration: 56.4 minutes. Injection site: Not specified COMPARISON: CT angio chest PE protcl [id number] 03/27/2023 6:14 PM FINDINGS: Brain: Visualized brain has normal physiologic uptake. Pharynx: No abnormal uptake. Larynx: No abnormal uptake. Lungs, pleura and trachea: In the right upper lobe, at the posterior aspect apical segment, a malignant tumor is 6.1 x 4.4 x 5.2 cm (image 46). Its max SUV is 26.3. It is centrally necrotic. Moderate bilateral panlobular and paraseptal emphysema in the upper lobes, right side worse than left. No pleural effusion. Heart: Normal physiologic uptake. Mediastinal space: No abnormal uptake. Liver: No abnormal uptake. An FDG avid nodule lateral to the inferior tip of the right hepatic lobe is 1.2 x 1.1 cm (image 103). It is adjacent to and separate from the liver. Its max SUV is 6.1. Retroperitoneum:An FDG avid nodule lateral to the right hepatic lobe is 1.2 x 1.1 cm (image 103). It is adjacent to and separate from the liver. Its max SUV is 6.1. It is consistent with an extraperitoneal soft tissue metastasis. A similar FDG avid retroperitoneal nodule, posterior to the cecum, is 1.0 x 0.9 cm (image 128). Its max SUV is 4.9. Gallbladder and bile ducts: No abnormal uptake. Pancreas: No abnormal uptake. Spleen: No abnormal uptake. Adrenal glands: Bilateral hypermetabolic adrenal masses are consistent with metastases. A right adrenal metastasis, 5.0 x 3.5 cm, has a max SUV of 10.6. A left adrenal metastasis, 2.7 x 2.3 cm, has an SUV max of 11.9. Kidneys and ureters: There is a 9.2 x 7.6 cm simple cyst at the anterior aspect of the left kidney. Stomach and bowel: A 1.4 cm hypermetabolic focus in the mid sigmoid colon has a max SUV of 5.3 (image 149). Because there is no corresponding CT abnormality, it is probably benign/physiologic. Reproductive: Mild prostate enlargement. Vasculature: There is severe calcific atherosclerosis of the abdominal aorta and iliac arteries. There is no aneurysm. Lymph nodes: No abnormal uptake. No lymphadenopathy in the head, neck, chest, abdomen, pelvis or extremities. Bones/joints: Sclerotic skeletal metastases at the T5 and T6 levels. The metastasis in the T5 vertebral body extends into the right pedicle. It is 3.9 x 3.0 cm and has a max SUV of 14.1. The metastasis at the T6 level is 2.4 x 2.7 cm and has a max SUV of 7.8. No other skeletal metastases are noted. Soft tissues: Both masseter muscles are FDG avid, right more than left. It is benign/physiologic. Max SUV is 5.4 in the right masseter muscle and max SUV in the left masseter muscle is 4.0. Similar muscular uptake is noted in a paravertebral muscle at the C2 level. Its max SUV is 5.6. Similar muscular uptake is noted in the bilateral longus colli muscles, 4.3 on the right and 6.7 on the left. Mild bilateral gynecomastia is not FDG avid. PET[email or web address] SUBSEQ [id number] IMPRESSION: 1. In the right upper lobe, at the posterior aspect apical segment, a malignant tumor is 6.1 x 4.4 x 5.2 cm. Its max SUV is 26.3. Moderate emphysema. No FDG avid lymph nodes in the head, neck, chest, abdomen, pelvis or extremities. 2. Sclerotic skeletal metastases at the T5 and T6 vertebrae. 3. Bilateral adrenal metastases. 4. Small soft tissue metastases posterior to the cecum and lateral to the liver.
== END 2023-04-14 06:03 | disposition home or self-care (01) ==
LOC: RAD 04-16 06:02
PROVIDERS: PCP Family Medicine; Visit Provider Internal Medicine Pulmonary Disease
DX: C34.11 Malignant neoplasm of upper lobe, right bronchus or lung (principal); C79.51 Secondary malignant neoplasm of bone; C79.72 Secondary malignant neoplasm of left adrenal gland; C79.71 Secondary malignant neoplasm of right adrenal gland; C79.89 Secondary malignant neoplasm of other specified sites; R91.8 Other nonspecific abnormal finding of lung field; J43.9 Emphysema, unspecified
CPT/HCPCS: 78815; A9552

== ENCOUNTER 2023-04-24 12:18 | Outpatient (CLI) | payer MEDICARE, SELFPAY ==
[2023-04-24 12:40] VITALS: PULSE 107; RESP 20; O2SAT 97
[2023-04-24] MEDS: albuterol 2.5 mg/3 mL Neb INHALATION (12:40)
== END 2023-04-24 12:19 | disposition home or self-care (01) ==
LOC: RT 12:19
PROVIDERS: PCP Family Medicine; Visit Provider Internal Medicine Pulmonary Disease
DX: R06.02 Shortness of breath (principal); Z72.0 Tobacco use; R94.2 Abnormal results of pulmonary function studies
CPT/HCPCS: 94060; 94618; 94726; 94729; J7613

== ENCOUNTER 2023-04-26 10:37 | Oncology outpatient (recurring) (ONCR) | payer MEDICARE, SELFPAY ==
--- NOTE | 2023-04-26 18:20 | N.ONRAD NP_ITS ---
Radiation Oncology New Patient Visit Patient: Jaleel Rhodes MR#: [id number] : 1955> Age: 67> Sex: Male> Dictated by: Souleymane Reyna Date of Service: 04/26/2023 Referring Physician(s) : Dr. 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 Bx scheduled in radiology on 05/04/2023. Radiotherapy to date: Summary > No prior radiation therapy. Chief Complaint / History of Present Illness: He has had a 1 year history of upper thoracic back pain becoming severe enough to come to the ER. Pain can be 9 on 10 scale and is currently 6 on 10 scale. No LE numbness weakness or tingling. Breathing is ok. Less appetite and modest weight loss. On MScontin and HC/APAP for pain. Some constipation from this. No SPARKS, N or V. When in ER on 03/27/2023 for pain CTA to rule out PE did reveal the RUL mass which was worrisome for malignancy. Sclerotic lesions seen in vert bodies of T5 and T6. PET/CT 04/14/2023 RUL mass, T5 T6, bilateral adrenal and small right right chest wall mass all with uptake consistent with malignant involvement. Current Medications: diclofenac sodium 1% (Arthritis Pain (diclofenac)) 2 grams topical QID PRN, digoxin 125 mcg PO DAILY, docusate sodium (Colace) 100 mg PO BID, hydrocodone-acetaminophen 7.5-325 mg 1 tab PO Q8H PRN 20 days, metoprolol succinate ER 100 mg PO BID, metoprolol succinate ER 25 mg PO BID, morphine ER 15 mg PO Q12H 30 days, multivitamin 1 tab PO DAILY, rivaroxaban (Xarelto) 20 mg PO DAILY, sacubitril-valsartan 49-51 mg (Entresto) 1 tab PO BID, spironolactone 12.5 mg (1/2 x 25 mg) PO DAILY, tiotropium bromide (Spiriva with HandiHaler) 1 cap inhalation DAILY Allergies: No Known Allergies Allergy Medical History: No previous radiation therapy. Atrial fibrillation, CHF (congestive heart failure), NYHA class III, Obesity, Tobacco abuse Surgical History: no significant surgery in the past Family History: not obtained. Social History: x 49 years. 1 daughter. 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 1 ppd x 52 yrs and still a current every day smoker (0.5 ppd X >50 years) cigarettes Packs smoked per day: 1 Years cigarettes smoked: 54 [ Other cigarette details: started at age 13] Current Complaints / Review of Systems: . Vital Signs: Performed on 04/26/2023 11:12 AM BMI - 31.973 kg/m2 (high), Height - 75 in, Weight - 255.8 lbs, Temperature - 96.9 f, Pulse - 102 /min (high), Respiration - 18 /min, O2 Sat - 96 %, Pain - 6, Fatigue - 0 and BP - 114/ 64 mm(hg)(/low). No palpable or cervical adenopathy. LE strength and sensation intact. Pathology: No path. Bx planned for 05/04/2023. Impression: St IV(T2 N0 M1) metastatic bronchogenic carcinoma. Symptomatic involvement of T5 and T6. No spinal cord compromise seen on CT imaging. Neurologically intact. Reasonable to treat now to this site and not wait for biopsy confirmation Plan on 20 Gy in 5 fractions. Discussed with patient and family. Discussed as well that the main component of treatment is systemic and is dependent on the outcome of his biopsy. Plan: Signed by: 04/26/2023 6:19:45 PM <<Signature on File>> Time spent with patient: CPT Code: CPT Code:
== END 2023-05-05 23:59 | disposition home or self-care (01) ==
PROVIDERS: PCP Family Medicine; Visit Provider Radiology Radiation Oncology
DX: Z51.0 Encounter for antineoplastic radiation therapy (principal); C79.51 Secondary malignant neoplasm of bone; C34.11 Malignant neoplasm of upper lobe, right bronchus or lung; C79.72 Secondary malignant neoplasm of left adrenal gland; C79.71 Secondary malignant neoplasm of right adrenal gland; F17.210 Nicotine dependence, cigarettes, uncomplicated
CPT/HCPCS: 77290; 77295; 77300; 77334; 99205

== ENCOUNTER 2023-05-04 11:09 | Day surgery (SDC) | payer MEDICARE, SELFPAY ==
[2023-05-04 11:43] VITALS: BP 133/75; PULSE 92; RESP 18; TEMP 36.1; O2SAT 97; BMI 32.7
[2023-05-04] MEDS: sodium chloride 0.9% 1,000 ML 30 ML IV (11:53)
[2023-05-04 12:05] LABS: INR 1.05 (0.8-1.2)
--- NOTE | 2023-05-04 12:45 | US_ITS ---
WS: [id number] ULTRASOUND ABDOMEN LIMITED CLINICAL INFORMATION: liver mass COMPARISON: PET/CT 04/14/2023 FINDINGS: Ultrasound liver RIGHT hepatic lobe. Small perihepatic nodule seen on the PET/CT adjacent to the RIGH T 11th rib cannot be seen on this study. Rib shadowing obscures the underlying soft tissues. Biopsy w as not performed. Findings discussed with patient and family. Notified Bhanu Conner MD at 05/04/20 23 2:10 PM. . IMPRESSION: See above
--- NOTE | 2023-05-04 13:49 | PC.NURSE ---
Dr. Mccullough was unable to get a good view of the liver mass with ultrasound and decided not to attempt the biopsy. Pt was instructed to follow up with Dr. Conner and oncology.
== END 2023-05-04 13:59 | disposition home or self-care (01) ==
LOC: GILAB 11:11
PROVIDERS: Radiology Neuroradiology; PCP Family Medicine; Visit Provider Internal Medicine Pulmonary Disease
DX: R16.0 Hepatomegaly, not elsewhere classified (principal)
CPT/HCPCS: 76705; 85610; J7030

== ENCOUNTER → 2023-05-24 11:07 | Outpatient (BNVA) | payer MEDICARE, SELFPAY | PROVIDERS: PCP Family Medicine; Visit Provider Internal Medicine Cardiovascular Disease | DX: I50.9 Heart failure, unspecified (principal); I48.91 Unspecified atrial fibrillation; Z72.0 Tobacco use; E66.9 Obesity, unspecified; Z68.30 Body mass index [BMI] 30.0-30.9, adult; Z79.01 Long term (current) use of anticoagulants | CPT/HCPCS: 99214 ==

== ENCOUNTER 2023-06-06 08:01 | Oncology outpatient (recurring) (ONCR) | payer MEDICARE, SELFPAY ==
[2023-06-06 10:07] LABS: Hematocrit 44.6 % (37-53); Mean Corpuscular HGB Conc 33.6 g/dL (30-55); Mean Corpuscular Hemoglobin 29.8 pg (27-33); Mean Corpuscular Volume 88.7 fl (82-101); Red Blood Count 5.03 10^6/uL (3.85-5.65)
[2023-06-06 10:08] LABS: Basophils % 0.4 %; Eosinophils # 0.3 10^3/uL (0.0-0.8); Eosinophils % 2.7 %; Lymphocytes # 1.5 10^3/uL (0.8-4.8); Lymphocytes % 16.2 %; Monocytes # 0.7 10^3/uL (0.2-0.9); Neutrophils # 6.64 10^3/uL (1.8-7.7); Neutrophils % 72.3 %; Nucleated Red Blood Cells % 0 %; Platelet Count 332 10^3/cmm (157-399); Red Cell Distribution Width 13.5 % (12.1-15.1)
[2023-06-06 10:25] LABS: Alanine Aminotransferase 8 U/L (0-41); Albumin Level 3.6 g/dL (3.5-5.2); Alkaline Phosphatase 116 U/L (40-130); Anion Gap 15.3 (5-19); Aspartate Amino Transferase 13 U/L (0-40); Blood Urea Nitrogen 11 mg/dL (8-23); Carbon Dioxide 26 mmol/L (22-29); Chloride 102 mmol/L (98-107); Globulin 3.6 g/dL (1.3-4.6); Glomerular Filtration Rate 111.8 mL/min (90-130); Glucose 119 mg/dL (65-115); Osmolality Calculated 289 mOsm/kg (285-295); Potassium 4.3 mmol/L (3.5-5.1); Sodium 139 mmol/L (136-145); Total Bilirubin 0.6 mg/dL (0.15-1.2); Total Protein 7.2 g/dL (6.6-8.7)
[2023-06-06 10:41] LABS: 25 Hydroxy Vitamin D 29 ng/mL (30-100)
== END 2023-07-05 23:59 | disposition home or self-care (01) ==
PROVIDERS: PCP Family Medicine; Visit Provider Internal Medicine
DX: C34.91 Malignant neoplasm of unspecified part of right bronchus or lung (principal); C79.51 Secondary malignant neoplasm of bone; M89.9 Disorder of bone, unspecified; G89.3 Neoplasm related pain (acute) (chronic); Z72.0 Tobacco use; Z79.899 Other long term (current) drug therapy
CPT/HCPCS: 36415; 77412; 77417; 80053; 82306; 85025; 99205

== ENCOUNTER 2023-07-04 10:00 | Oncology outpatient (recurring) (ONCR) | payer MEDICARE, SELFPAY ==
--- NOTE | 2023-06-12 10:02 | N.ONRD TS_ITS ---
Radiation Oncology Treatment Summary/Treatment Management Note Patient: Jaleel Rhodes #: [id number] : 1955> Age: 67> Sex: Male Dictated by: Dr. Ghazala Townsend Date of Service: 06/12/2023 Fractions 5 of 5 Chief complaint he continues to have pain through that spinal area that he rates at about a 3 out of 10. Referring Physician(s) : Dr. Vann Diagnosis: C79.51 - Secondary malignant neoplasm of bone, Diagnosed 04/26/2023 (Active) Radiotherapy to Date: Course: T Spine 2022, Treatment Site: T Spine 20Gy, Ref. ID: T [id number], Energy: 15X, Dose/Fx (cGy): 400, #Fx: 5 / 5, Dose Correction (cGy): 0, Total Dose (cGy): 2,000, Start Date: 06/06/2023, End Date: 06/12/2023 Elapsed Days: 6 Clinical Summary: The patient tolerated RT well. He has had some mild improvement in his pain. He developed no essential toxicity from the treatment. Plan: End of treatment today. Continue on the above medication until the skin reaction resolves. He will follow-up with Dr. Vann the day after Thanksgiving to discuss immune/chemotherapy. Signed by: Dr. Ghazala Townsend>06/12/2023 10:00:53 AM <<Signature on File>>
[2023-07-04 10:44] LABS: Basophils % 0.5 %; Eosinophils # 0.2 10^3/uL (0.0-0.8); Eosinophils % 2.8 %; Hematocrit 45.8 % (37-53); Lymphocytes # 1.2 10^3/uL (0.8-4.8); Lymphocytes % 16.3 %; Mean Corpuscular Hemoglobin 29.4 pg (27-33); Mean Corpuscular Volume 89.1 fl (82-101); Mean Platelet Volume 10.3 fL (7.4-10.4); Monocytes # 0.7 10^3/uL (0.2-0.9); Monocytes % 9.3 %; Neutrophils % 70.7 %; Nucleated Red Blood Cells % 0 %; Platelet Count 320 10^3/cmm (157-399); Red Blood Count 5.14 10^6/uL (3.85-5.65); Red Cell Distribution Width 13.4 % (12.1-15.1)
[2023-07-04 11:03] LABS: Alanine Aminotransferase 8 U/L (0-41); Albumin Level 3.7 g/dL (3.5-5.2); Alkaline Phosphatase 122 U/L (40-130); Anion Gap 17.5 (5-19); Aspartate Amino Transferase 13 U/L (0-40); Blood Urea Nitrogen 13 mg/dL (8-23); Carbon Dioxide 23 mmol/L (22-29); Chloride 103 mmol/L (98-107); Globulin 3.9 g/dL (1.3-4.6); Glomerular Filtration Rate 111.8 mL/min (90-130); Glucose 112 mg/dL (65-115); Osmolality Calculated 289 mOsm/kg (285-295); Potassium 4.5 mmol/L (3.5-5.1); Sodium 139 mmol/L (136-145); Total Bilirubin 0.6 mg/dL (0.15-1.2); Total Protein 7.6 g/dL (6.6-8.7)
[2023-07-04] MEDS: zoledronic acid 4 MG in sodium chloride 0.9% (100 ml) 100 ML 420 MG IV (12:52)
[2023-07-04] MEDS: sodium chloride 0.9% (100 ml) 100 ML (12:59)
[2023-07-04 13:05] LABS: Thyroid Stimulating Hormone 1.91 uIU/mL (0.27-4.20)
[2023-07-04 13:35] VITALS: BP 111/77; PULSE 79; RESP 16; TEMP 36; O2SAT 97
== END 2023-07-05 23:59 | disposition home or self-care (01) ==
PROVIDERS: Internal Medicine Medical Oncology; PCP Family Medicine; Visit Provider Radiology Radiation Oncology
DX: Z51.0 Encounter for antineoplastic radiation therapy (principal); C79.51 Secondary malignant neoplasm of bone; C34.91 Malignant neoplasm of unspecified part of right bronchus or lung; R53.83 Other fatigue; Z79.899 Other long term (current) drug therapy
CPT/HCPCS: 77336; 77412; 80053; 84443; 85025; 96365; 99024; 99215; J3489

== ENCOUNTER 2023-07-09 10:29 | Outpatient (CLI) | payer MEDICARE, SELFPAY ==
--- NOTE | 2023-07-09 11:00 | MR_ITS ---
WS: [id number] MRI HEAD WITH CONTRAST TECHNIQUE: Sagittal T1, T2 axial, T2 axial FLAIR, axial susceptibility weighted imaging, axial diffus ion weighted images, and coronal T2 images were obtained. Pre and post-T1 axial and post T1 coronal i mages. ADC and FSPGR images. CLINICAL INFORMATION: lung cancer, metastasis to bone COMPARISON: None. FINDINGS: Innumerable enhancing supra and infratentorial metastatic lesions some with associated hemosiderin an d T1 hyperintense hemorrhage. Largest lesion adjacent to the RIGHT frontal horn measuring 1.9 cm with moderate surrounding edema. Additional lesion in the RIGHT posterior frontal lobe with moderate surr ounding edema measuring 1.4 cm. Additional smaller supratentorial lesions with mild surrounding edema . Smaller cerebellar metastasis the largest measuring approximately 10 mm. Mild edema in the cerebell um. Fourth ventricle remains patent. Metastatic lesions in the cerebellar vermis. No hydrocephalus. No restricted diffusion to suggest acute ischemia. Paranasal sinuses and mastoid ai r cells are well aerated. Mild small vessel changes with mild to moderate parenchymal volume loss. No rmal vascular flow voids at the skull base. No extra-axial fluid collections. Paranasal sinuses are w ell aerated. Normal posterior nasopharynx. Mastoid air cells are well aerated. Normal to chiasm and pituitary infundibulum. IMPRESSION: 1. Innumerable enhancing supra and infratentorial metastatic lesions described above. 2. Largest supratentorial lesions adjacent to the RIGHT frontal horn with moderate surrounding edema and mild mass effect on the RIGHT frontal horn. Notable RIGHT posterior frontal lobe lesion with mod erate surrounding edema. 3. Some lesions demonstrate hemosiderin and T1 hyperintense blood products. 4. Numerous mainly subcentimeter lesions in the cerebellum the largest measuring up to 10 mm with me tastatic lesions involving the vermis. Mild edema. Fourth ventricle remains patent. Notified Rosaline Rabago MD at 07/09/2023 12:55 PM.
[2023-07-09] MEDS: gadobenate dimeglumine 20 mL vial IV (11:40)
== END 2023-07-09 10:30 | disposition home or self-care (01) ==
LOC: RAD 10:29
PROVIDERS: PCP Family Medicine; Visit Provider Internal Medicine
DX: C79.31 Secondary malignant neoplasm of brain (principal); G93.6 Cerebral edema; C34.91 Malignant neoplasm of unspecified part of right bronchus or lung; C79.51 Secondary malignant neoplasm of bone
CPT/HCPCS: 70553; A9577

== ENCOUNTER 2023-07-11 10:47 | Day surgery (SDC) | payer MEDICARE, SELFPAY ==
[2023-07-11 11:47] VITALS: BP 129/82; PULSE 92; RESP 18; TEMP 37.1; O2SAT 97; BMI 30.8
[2023-07-11] MEDS: sodium chloride 0.9% 1,000 ML 30 ML IV (12:03)
--- NOTE | 2023-07-11 12:06 | ANES.PREANE2 ---
Pre-Anesthetic Assessment Height/Weight: Height 1.88 m Weight 108.862 kg Temp Pulse Resp BP Pulse Ox O2 Del Method 98.7 F 92 18 129/82 97 Room Air 07/11/23 11:47 07/11/23 11:47 07/11/23 11:47 07/11/23 11:47 07/11/23 11:47 07/11/23 11:47 Operation Date: 07/11/23 12:45 Proposed Procedures p [id number] port placement C34.11, Z95.828,C79.51,C34.91(Not Applicable) - Mendoza Nunez MD Familial anesthetic complications: none Was Beta Maryuri taken within 24 hours: Yes Was Clonidine taken within 24 hours: N/A Last intake: Intake Last Liquid Date 07/11/23 Last Liquid Time 06:00 Last Solid Date 07/10/23 Last Solid Time 20:00 Social Tobacco and No alcohol Exam alert and oriented x 3 Airway Submandibular: within normal limits Cervical ROM: within normal limits Mallampati: Class II Dentition: false Pulmonary Chronic Obstructive Pulmonary Disease Lung CA CV/HEM Atrial Fibrillation, Congestive Heart Failure and Hypertension CONCLUSIONS 1. This is a technically difficult study. Optison was used per protocol. 2. Normal left ventricular cavity size. Mildly decreased left ventricular systolic function. Left ventricular ejection fraction is estimated at 45-50%. Mild global hypokinesis. 3. When compared to study dated 03/30/22, left ventricular systolic function has improved from 31% then. Kiara Winston MD (Electronically Signed) Final Date: 19 September 2022 GI Gastroesophageal Reflux Disease Metabolic Obese Anesthetic Plan ASA status: 3 Anesthesia: MAC Medications/Allergies Home Medications Medication Instructions Recorded Confirmed Last Taken Type diclofenac sodium 1 % topical gel 2 g topical QID PRN Pain 04/06/22 07/10/23 2 Months Ago History (Arthritis Pain (diclofenac)) ~03/03/23 multivitamin 1 tab PO DAILY 04/06/22 07/10/23 07/10/23 History spironolactone 25 mg tablet 12.5 mg (1/2 x 25 mg) PO DAILY #90 08/14/22 07/10/23 07/11/23 Rx tabs metoprolol succinate 100 mg 100 mg PO BID #180 tabs 10/17/22 07/10/23 07/10/23 Rx tablet,extended release 24 hr metoprolol succinate 25 mg 25 mg PO BID #180 tabs 10/17/22 07/10/23 07/10/23 Rx tablet,extended release 24 hr sacubitril 49 mg-valsartan 51 mg 1 tab PO BID #180 tabs 02/15/23 07/10/23 07/09/23 Rx tablet (Entresto) digoxin 125 mcg (0.125 mg) tablet 125 mcg PO DAILY #90 tabs 03/26/23 07/10/23 07/11/23 Rx rivaroxaban 20 mg tablet (Xarelto) 20 mg PO DAILY #90 tabs 03/26/23 07/10/23 07/08/23 Rx tiotropium 2.5 mcg-olodaterol 2.5 2 puff inhalation DAILY #4 grams 04/25/23 07/10/23 07/10/23 Rx mcg/actuation mist for inhalation (Stiolto Respimat) docusate sodium 100 mg capsule 100 mg PO BID #60 caps 05/23/23 07/10/23 07/10/23 Rx (Colace) lactulose 10 gram/15 mL oral 10 g (15 mL) PO BID PRN 05/23/23 07/10/23 07/10/23 Rx solution constipation #473 mL cholecalciferol (vitamin D3) 25 25 mcg PO DAILY 07/04/23 07/10/23 07/10/23 History mcg (1,000 unit) capsule lorazepam 1 mg tablet 1 mg PO Q4H PRN severe nausea #30 07/04/23 07/10/23 07/10/23 Rx tabs morphine 30 mg tablet,extended 30 mg PO Q12H 30 days #60 tabs 07/04/23 07/10/23 07/10/23 Rx release prochlorperazine maleate 10 mg 10 mg PO Q4H PRN nausea and 07/04/23 07/10/23 07/05/23 Rx tablet (Compazine) vomiting #30 tabs hydrocodone 10 mg-acetaminophen 1 tab PO Q6H PRN pain 30 days #120 07/05/23 07/10/23 07/10/23 Rx 325 mg tablet tabs dexamethasone 4 mg tablet 4 mg PO BID #20 tabs 07/09/23 07/10/23 07/10/23 Rx pantoprazole 40 mg tablet,delayed 40 mg PO DAILY #30 tabs 07/09/23 07/10/23 07/11/23 Rx release (Protonix) Allergies Allergy/AdvReac Type Severity Reaction Status Date / Time No Known Allergies Allergy Verified 07/11/23 11:44 Current Medications Generic Name Dose Route Start Last Admin Trade Name Freq PRN Reason Stop Dose Admin Sodium Chloride 1,000 mls @ 30 mls/hr 07/11/23 11:45 07/11/23 12:03 Sodium Chloride 0.9% IV 07/12/23 11:44 30 mls/hr .Q24H TYLER Administration PFSH Anesthesia Medical History Metastasis to bone Adenocarcinoma of right lung, stage 4 Atrial fibrillation CHF (congestive heart failure), NYHA class III Tobacco abuse Obesity Social History Smoking and tobacco/nicotine status: current every day tobacco/nicotine user (0.5 ppd X >50 years) cigarettes Packs smoked per day: 1 Years cigarettes smoked: 54 [ Other cigarette details: started at age 13] Data Anesthesia Cardiac Studies: Echocardiogram 09/13/22
--- NOTE | 2023-07-11 12:43 | W.PM.OPSUD ---
Surgery/Procedure H&P Update DATE OF PROCEDURE: July 11, 2023 DATE H&P PERFORMED: 07/06/23 H&P UPDATE INFORMATION: I have reviewed H&P completed within last 30 days, I have examined patient prior to procedure, No changes to prior documentation and H&P is in [facility] date indicated PLANNED PROCEDURE: Operation Date: 07/11/23 12:45 Proposed Procedures p [id number] port placement C34.11, Z95.828,C79.51,C34.91(Not Applicable) - Mendoza Nunez MD
[2023-07-11] MEDS: ceFAZolin 2,000 MG in sodium chloride 0.9% (plus) 50 ML 100 MG IV (13:10)
--- NOTE | 2023-07-11 13:11 | SC_ITS ---
WS: [id number] C-arm fluoroscopy for insertion of internal jugular venous catheter, 07/11/2023 Clinical Data: port placement Comparison: None. Findings: There is a right infusion catheter which enters the internal jugular vein and ends in the mid superio r vena cava. Impression: Insertion of right infusion port..
[2023-07-11] MEDS: lidocaine-epi 1% 20 mL INJ INJECTION (13:40)
[2023-07-11] MEDS: heparin,porcine 1,000 unit/mL INJ 1 mL 1000 UNIT IRRIGATION (13:41)
[2023-07-11] MEDS: heparin, porcine 1,000 unit/mL INJ 10 mL 5000 UNIT IRRIGATION (13:42)
--- NOTE | 2023-07-11 14:02 | PM.OP ---
Operative Report Date of procedure: July 11, 2023 Pre-op diagnosis: Lung cancer Post-op diagnosis: Same Post-op findings: Normal vascular anatomy Procedure done: Right IJ Port-A-Cath placement Implants: Bard Port-A-Cath Surgeon: Mendoza Nunez MD Sewage Disposal Engineer: SHANDA OR Staff Estimated blood loss: 5 Complications: None Brief History: 67-year-old male with lung cancer who requires Port-A-Cath for initiation of chemotherapy. After discussion of all the risk and benefits as documented in my preop note we decided to proceed with right IJ Port-A-Cath placement. Procedure: Patient was brought into the OR. He was placed in a supine position, mother anesthesia sedation was given. The neck and chest was prepped and draped in the usual sterile fashion. Timeout was conducted. The right IJ vein was identified with ultrasound, local anesthesia was infiltrated on top of the vein. I then cannulated the right IJ under direct visualization, a wire was advanced to the vein and the needle was removed. The location of the wire was verified with both ultrasound and fluoroscopy. The wire was clamped to the drapes and then I placed my attention on the upper chest. In the previously marked location I made a 3 cm incision, the incision was deepened to the subcutaneous tissue and then a subcutaneous pocket was created with electrocautery to allow for the Port-A-Cath to seat there. I then use a hemostat to create a tunnel from the chest wound to the neck and I made a 5 mm incision at the level of the wire insertion site on the neck to allow for dilators. The Port-A-Cath was placed into the created pocket and noted to fit well, the catheter was then tunneled from the chest wound to the neck wound using the provided tunneler. The catheter was measure under fluoroscopy guidance and cut to length. I then advanced an introducer and peel-off sheath over the wire under direct fluoroscopy guidance the introducer and the wire were subsequently removed leaving only the peel-off sheath. The catheter was advanced through the peel-off sheath and the peel-off sheath was removed leaving the catheter in place. Fluoroscopy was used to verify the position of the catheter and it was noted to be in a satisfactory position. The Port-A-Cath was tested and was noted to flush fine and draw back blood. I then proceeded to hep-locked the catheter. The wounds were then closed in layers using #3-0 Vicryl for the subcutaneous tissue and #4 Monocryl for the skin. Dermabond was applied over the wounds. At the end of the procedure all counts were correct, the patient tolerated well the procedure was waking up and transferred to the PACU in stable condition.
[2023-07-11 14:06] VITALS: BP 93/69; PULSE 99; RESP 14; TEMP 36.3; O2SAT 95
[2023-07-11 14:11] VITALS: BP 99/68; PULSE 90; RESP 16; O2SAT 100
[2023-07-11 14:16] VITALS: BP 112/67; PULSE 88; RESP 18; O2SAT 98
[2023-07-11 14:21] VITALS: BP 112/63; PULSE 97; RESP 20; TEMP 36.7; O2SAT 97
[2023-07-11 14:29] VITALS: BP 123/75; PULSE 93; RESP 18; TEMP 36.6; O2SAT 95
--- NOTE | 2023-07-11 16:56 | ANE.PACU2 ---
Inpatient post-anesthesia follow up: Airway intact: Yes Vital signs: Temperature 98 F Pulse Rate 93 Respiratory Rate 18 Blood Pressure 123/75 Pulse Oximetry 95 Oxygen Delivery Me thod Room Air Oxygen Flow Rate Fraction of Inspir ed Oxygen Hydration adequate: Yes Nausea and vomiting: No Pain level: 1 Mental status: Baseline
== END 2023-07-11 14:58 | disposition home or self-care (01) ==
PROVIDERS: PCP Family Medicine; Visit Provider Surgery
PROC: (CPT 36561; principal; 2023-07-11 12:25)
DX: C34.90 Malignant neoplasm of unspecified part of unspecified bronchus or lung (principal); J44.9 Chronic obstructive pulmonary disease, unspecified; I48.91 Unspecified atrial fibrillation; I11.0 Hypertensive heart disease with heart failure; I50.9 Heart failure, unspecified; F17.210 Nicotine dependence, cigarettes, uncomplicated
CPT/HCPCS: 36561; 76000; 77001; C1788; J0690; J1644; J2704; J3010; J7030

== ENCOUNTER 2023-08-01 08:45 | Oncology outpatient (recurring) (ONCR) | payer MEDICARE, SELFPAY ==
--- NOTE | 2023-07-11 08:55 | ONCRAD EPV_ITS ---
Radiation Oncology Established Patient Visit Patient: Carmelo Marmolejo [id number] : 1955> Age: 67> Sex: Male> Dictated by: Dr. Ghazala Townsend Date of Service: 07/10/2023 Referring Physician(s) : Dominick Diagnosis: C79.51 - Secondary malignant neoplasm of bone, Diagnosed 04/26/2023 (Active) Radiotherapy to Date: Course: T Spine 2022, Treatment Site: T Spine 20Gy, Ref. ID: [id number], Energy: 15X, Dose/Fx (cGy): 400, #Fx: 5 / 5, Dose Correction (cGy): 0, Total Dose (cGy): 2,000, Start Date: 06/06/2023, End Date: 06/12/2023, Elapsed Days: 6 Current History: Patient has recently had an MRI for staging purposes prior to beginning immunotherapy. He was found on the MRI which was done on 07/09/2023 to have innumerable enhancing supra and infratentorial metastatic lesions some with associated hemosiderin suggesting that there is been hemorrhage. Currently he is asymptomatic. He is seen today in consultation to discuss treatment for brain metastasis Current Medications: Allergies: Current Complaints / Review of Systems: . Vital Signs: Performed on 07/10/2023 3:41 PM BMI - 30.398 kg/m2 (high), Height - 75 in, Weight - 243.2 lbs, Temperature - 97.7 f, Pulse - 90 /min, Respiration - 17 /min, O2 Sat - 95 % (low), Pain - 0, Fatigue - 0 and BP - 110/ 68 mm(hg). Physical Exam: General: Alert and oriented x 3. No acute distress. HEENT: Normocephalic, atraumatic. Extraocular Movements Intact: Pupils Equal, Round Sclerae anicteric. . LUNGS: Respiratory rate is regular nonlabored HEART: Regular rate and rhythm, MUSCULOSKELETAL: No gross musculoskeletal abnormalities noted. Tenderness in the previously treated area has decreased. ABDOMEN: Mildly protuberant EXTREMITIES: No gross edema is noted in the upper extremities NEUROLOGIC: Alert and oriented x3. Patient is sitting comfortably in a wheelchair. Speech and affect within normal limits.. Performance Status: ECOG 1 Lab: None pending. Pathology: Primary, c79.51 - secondary malignant neoplasm of bone, Diagnosed 04/26/2023 (active). Imaging: See HPI Impression: Stage IV non-small cell carcinoma lung now with innumerable brain metastasis Plan: I reviewed with Mr. Rhodes and his family as well as his daughter who was on the phone that he has multiple brain metastasis. He has had prior treatment for bony metastasis. We talked about since there were multiple lesions that it would be prudent to proceed with whole brain radiation. We reviewed the simulation process, the daily treatment regiment, the risks and side effects both acute and long-term. At this point he had no additional questions or concerns and he is agreed to proceed with treatment. He will return tomorrow to undergo simulation and will begin his treatments as soon as possible this week. We talked about how the lesions have bled and his blood thinner has been held for his port placement which is tomorrow. I reviewed with him that typically with the radiation this will stop the bleeding within 2-3 treatments. At this time we will plan for 2-week course of treatment to the whole brain. Signed by: 07/11/2023 8:54:10 AM <<Signature on File>> Time spent with patient: CPT Code: CPT Code:
[2023-07-11] MEDS: cyanocobalamin 1,000 mcg/mL SDV 1000 MCG IM (10:38)
--- NOTE | 2023-07-17 09:31 | ONCRAD TMN_ITS ---
Radiation Oncology Weekly Treatment Management Patient: Carmelo Marmolejo MR#: [id number] : 1955 Attending Physician: Dr. Ghazala Townsend Date of Service: 07/17/2023 Fractions: 2 of 10 whole brain treatments remaining on dexamethasone at 4 mg 4 times a day Referring Physician(s) : Diagnosis: C79.31 - Secondary malignant neoplasm of brain, Diagnosed 07/11/2023 (Active) C79.51 - Secondary malignant neoplasm of bone, Diagnosed 04/26/2023 (Active) Radiotherapy to date: Course: Whole Brain 2022, Treatment Site: [id number], Ref. ID: [id number], Energy: 15X, Dose/Fx (cGy): 300, #Fx: , Dose Correction (cGy): 0, Total Dose (cGy): 600, Start Date: 07/16/2023, Elapsed Days: 1 Reason for visit: The patient is being seen today as part of their regularly scheduled weekly on treatment visits to assess for acute toxicities from radiotherapy. Review of Systems: Patient is actually feeling well today. His back pain is gone now that he is on the high-dose steroids. He had previously had this area treated and I suspect he will need it treated again in the near future. He is undergoing the teaching for his chemotherapy today. He otherwise has had no new problems develop Vital Signs: Physical Exam: Alert and oriented x 3, pupils equal round reactive to light, sclera clear. Gait and speech within normal limits today. He is not walking with a cane or in a wheelchair. Imaging: Radiation therapy imaging related to accurate target localization (i.e. KV, MV and CBCT) was reviewed. Appropriate changes, if any, were made to ensure treatment accuracy. Plan: Will continue with his treatments this week. I told him that next week we will go ahead and give him his dexamethasone taper which I would recommend going slowly with since he had such good results in terms of his back pain. He verbalized understanding of this and he will continue with his dexamethasone. I will go ahead and send another refill through so he will run out of the steroids. Signed by: Dr. Ghazala Townsend 07/17/2023 9:29:25 AM
--- NOTE | 2023-07-24 11:43 | ONCRAD TMN_ITS ---
Radiation Oncology Weekly Treatment Management Patient: Jaleel Rhodes MR#: [id number] : 1955 Attending Physician: Souleymane Reyna Date of Service: 07/24/2023 Referring Physician(s) : Diagnosis: C79.31 - Secondary malignant neoplasm of brain, Diagnosed 07/11/2023 (Active) C79.51 - Secondary malignant neoplasm of bone, Diagnosed 04/26/2023 (Active) Radiotherapy to date: Course: Whole Brain 2022, Treatment Site: [id number], Ref. ID: [id number], Energy: 15X, Dose/Fx (cGy): 300, #Fx: 7 / 10, Dose Correction (cGy): 0, Total Dose (cGy): 2,100, Start Date: 07/16/2023, Elapsed Days: 8 Reason for visit: The patient is being seen today as part of their regularly scheduled weekly on treatment visits to assess for acute toxicities from radiotherapy. Review of Systems: Now of steroids. Mild SPARKS yesterday, none today. Back pain 90% better. On MS04 and HC/APAP. Ambulation is good. Active with ADLs at home. Vital Signs: Performed on 07/24/2023 11:12 AM BMI - 30.623 kg/m2 (high), Height - 75 in, Weight - 245 lbs, Temperature - 98 f, Pulse - 106 /min (high), Respiration - 16 /min, O2 Sat - 98 %, Pain - 0, Fatigue - 0 and BP - 109/ 72 mm(hg). Physical Exam: Minimal scalp erythema. Oral cavity clear, no candidiasis. Imaging: Radiation therapy imaging related to accurate target localization (i.e. KV, MV and CBCT) was reviewed. Appropriate changes, if any, were made to ensure treatment accuracy. Plan: Good tolerance of treatment. Continue as planned. Completes radiation 07/28/2023. Chemo planned for the following week. Signed by: Souleymane Reyna 07/24/2023 11:42:06 AM
--- NOTE | 2023-07-31 09:27 | N.ONRD TS_ITS ---
Radiation Oncology Treatment Summary Patient: Jaleel Rhodes MR#: [id number] : 1955 Age: 67 Sex: Male Dictated by: Wicho Oliva Date of Service: 07/27/2023 Referring Physician(s) : Diagnosis: C79.31 - Secondary malignant neoplasm of brain, Diagnosed 07/11/2023 (Active) C79.51 - Secondary malignant neoplasm of bone, Diagnosed 04/26/2023 (Active) Radiotherapy to Date: Course: T Spine 2022, Treatment Site: T Spine 20Gy, Ref. ID: [id number], Energy: 15X, Dose/Fx (cGy): 400, #Fx: 5 / 5, Dose Correction (cGy): 0, Total Dose (cGy): 2,000, Start Date: 06/06/2023, End Date: 06/12/2023, Elapsed Days: 6 Whole Brain 2022, Treatment Site: [id number], Ref. ID: [id number], Energy: 15X, Dose/Fx (cGy): 300, #Fx: 10 / 10, Dose Correction (cGy): 0, Total Dose (cGy): 3,000, Start Date: 07/16/2023, End Date: 07/27/2023, Elapsed Days: 11 Clinical Summary: The patient tolerated RT well. At the completion of therapy he had no neurologic complaints, was ambulatory, alert, and oriented. He was off steroids. He had a mild skin reaction. His back pain from prior treatment had almost completely resolved. Plan: End of treatment today. Follow up in medical oncology for systemic therapy. Return to the radiation center on an as-needed basis. Signed by: Wicho Oliva>07/31/2023 9:26:18 AM <<Signature on File>>
[2023-08-01 08:53] VITALS: BP 124/77; PULSE 74; RESP 16; TEMP 36.6; O2SAT 96
[2023-08-01 09:11] LABS: Basophils % 0.2 %; Eosinophils % 0.1 %; Hematocrit 42.4 % (37-53); Lymphocytes # 0.8 10^3/uL (0.8-4.8); Lymphocytes % 6.7 %; Mean Corpuscular HGB Conc 32.8 g/dL (30-55); Mean Corpuscular Hemoglobin 29.7 pg (27-33); Mean Corpuscular Volume 90.6 fl (82-101); Monocytes # 0.8 10^3/uL (0.2-0.9); Monocytes % 6.8 %; Neutrophils # 10.05 10^3/uL (1.8-7.7); Neutrophils % 85.9 %; Nucleated Red Blood Cells % 0 %; Platelet Count 311 10^3/cmm (157-399); Red Blood Count 4.68 10^6/uL (3.85-5.65); Red Cell Distribution Width 14.6 % (12.1-15.1)
[2023-08-01 09:29] LABS: Alanine Aminotransferase 9 U/L (0-41); Albumin Level 3.7 g/dL (3.5-5.2); Alkaline Phosphatase 89 U/L (40-130); Anion Gap 14.6 (5-19); Aspartate Amino Transferase 12 U/L (0-40); Blood Urea Nitrogen 19 mg/dL (8-23); Carbon Dioxide 25 mmol/L (22-29); Chloride 103 mmol/L (98-107); Globulin 3.3 g/dL (1.3-4.6); Glomerular Filtration Rate 83.7 mL/min (90-130); Glucose 130 mg/dL (65-115); Osmolality Calculated 290 mOsm/kg (285-295); Potassium 4.6 mmol/L (3.5-5.1); Sodium 138 mmol/L (136-145); Total Bilirubin 0.3 mg/dL (0.15-1.2)
[2023-08-01] MEDS: sodium chloride 0.9% 250 ML 75 ML IV (11:36)
[2023-08-01] MEDS: zoledronic acid 4 MG in sodium chloride 0.9% (100 ml) 100 ML 420 MG IV (11:36)
[2023-08-01] MEDS: OLANZapine 5 mg TABLET PO (12:01)
[2023-08-01] MEDS: palonosetron 0.25 mg/5 mL SDV IVP (12:05)
[2023-08-01] MEDS: famotidine 20 mg/2 mL INJ IVP (12:06)
[2023-08-01] MEDS: diphenhydrAMINE 50 mg/mL SDV 1mL 25 MG IVP (12:08)
[2023-08-01] MEDS: fosaprepitant 150 MG in sodium chloride 0.9% 150 ML 300 MG IV (12:36)
[2023-08-01] MEDS: pembrolizumab 200 MG in sodium chloride 0.9% 250 ML 516 MG IV (13:24)
[2023-08-01] MEDS: CARBOplatin 710 MG in sodium chloride 0.9% 500 ML 571 MG IV (14:40)
[2023-08-01 16:10] VITALS: BP 135/78; PULSE 85; RESP 18; TEMP 36.6; O2SAT 98
== END 2023-08-01 23:59 | disposition home or self-care (01) ==
PROVIDERS: Nurse Practitioner Family; PCP Family Medicine; Visit Provider Specialist
DX: Z53.9 Procedure and treatment not carried out, unspecified reason (principal); C34.11 Malignant neoplasm of upper lobe, right bronchus or lung; Z79.899 Other long term (current) drug therapy; Z51.11 Encounter for antineoplastic chemotherapy
CPT/HCPCS: 77290; 77295; 77300; 77334; 77336; 77412; 77417; 80053; 85025; 96365; 96366; 96367; 96372; 96375; 96413; 96417; 99024; 99204; 99213; 99214; 99215; J1100; J1200; J1453; J1642; J2469; J3420; J3489; J3490; J7040; J7050; J9045; J9271; J9305

== ENCOUNTER → 2023-08-08 08:23 | Outpatient (BNVA) | payer MEDICARE, SELFPAY | PROVIDERS: PCP Family Medicine; Visit Provider Nurse Practitioner Family | DX: C34.11 Malignant neoplasm of upper lobe, right bronchus or lung (principal) | CPT/HCPCS: 80053; 85025 ==

== ENCOUNTER → 2023-08-15 08:10 | Outpatient (BNVA) | payer MEDICARE, SELFPAY | PROVIDERS: PCP Family Medicine; Visit Provider Nurse Practitioner Family | DX: C34.91 Malignant neoplasm of unspecified part of right bronchus or lung (principal) | CPT/HCPCS: 80053; 85025 ==

== ENCOUNTER 2023-08-22 07:54 | Oncology outpatient (recurring) (ONCR) | payer MEDICARE, SELFPAY ==
[2023-08-22 08:10] VITALS: BP 132/84; PULSE 64; RESP 16; TEMP 37.2
[2023-08-22 08:16] LABS: Basophils % 0.2 %; Eosinophils % 0.2 %; Hematocrit 42.4 % (37-53); Lymphocytes # 0.7 10^3/uL (0.8-4.8); Lymphocytes % 13.5 %; Mean Corpuscular HGB Conc 33.5 g/dL (30-55); Mean Corpuscular Hemoglobin 30.3 pg (27-33); Mean Corpuscular Volume 90.4 fl (82-101); Mean Platelet Volume 9.1 fL (7.4-10.4); Monocytes # 0.7 10^3/uL (0.2-0.9); Monocytes % 13.4 %; Neutrophils # 3.87 10^3/uL (1.8-7.7); Neutrophils % 71.8 %; Nucleated Red Blood Cells % 0 %; Platelet Count 258 10^3/cmm (157-399); Red Blood Count 4.69 10^6/uL (3.85-5.65); Red Cell Distribution Width 14.7 % (12.1-15.1); White Blood Count 5.39 10^3/uL (3.29-11.43)
[2023-08-22 08:43] LABS: Alanine Aminotransferase 11 U/L (0-41); Albumin Level 3.6 g/dL (3.5-5.2); Alkaline Phosphatase 100 U/L (40-130); Anion Gap 16.1 (5-19); Aspartate Amino Transferase 12 U/L (0-40); Blood Urea Nitrogen 16 mg/dL (8-23); Carbon Dioxide 25 mmol/L (22-29); Chloride 101 mmol/L (98-107); Globulin 3.4 g/dL (1.3-4.6); Glomerular Filtration Rate 111.8 mL/min (90-130); Glucose 138 mg/dL (65-115); Osmolality Calculated 287 mOsm/kg (285-295); Potassium 5.1 mmol/L (3.5-5.1); Sodium 137 mmol/L (136-145); Thyroid Stimulating Hormone 1.37 uIU/mL (0.27-4.20); Total Bilirubin 0.3 mg/dL (0.15-1.2)
[2023-08-22 09:45] VITALS: BMI 29.5
[2023-08-22 09:46] VITALS: BP 111/77; PULSE 98; RESP 16; TEMP 36.6; O2SAT 98
[2023-08-22] MEDS: sodium chloride 0.9% 250 ML 75 ML IV (10:17)
[2023-08-22] MEDS: diphenhydrAMINE 50 mg/mL SDV 1mL 25 MG IVP (10:22)
[2023-08-22] MEDS: famotidine 20 mg/2 mL INJ IVP (10:24)
[2023-08-22] MEDS: palonosetron 0.25 mg/5 mL SDV IVP (10:26)
[2023-08-22] MEDS: OLANZapine 5 mg TABLET PO (10:26)
[2023-08-22] MEDS: fosaprepitant 150 MG in sodium chloride 0.9% 150 ML 300 MG IV (11:01)
[2023-08-22] MEDS: pembrolizumab 200 MG in sodium chloride 0.9% 250 ML 516 MG IV (11:36)
[2023-08-22] MEDS: CARBOplatin 750 MG in sodium chloride 0.9% 500 ML 575 MG IV (12:47)
[2023-08-22 14:01] VITALS: BP 112/70; PULSE 74; RESP 16; TEMP 37; O2SAT 91
== END 2023-08-22 23:59 | disposition home or self-care (01) ==
PROVIDERS: Nurse Practitioner Family; PCP Family Medicine; Visit Provider Specialist
DX: Z51.0 Encounter for antineoplastic radiation therapy; C79.31 Secondary malignant neoplasm of brain; C79.51 Secondary malignant neoplasm of bone; Z95.828 Presence of other vascular implants and grafts; C34.11 Malignant neoplasm of upper lobe, right bronchus or lung; F17.210 Nicotine dependence, cigarettes, uncomplicated; Z79.52 Long term (current) use of systemic steroids; Z79.01 Long term (current) use of anticoagulants; Z79.899 Other long term (current) drug therapy
CPT/HCPCS: 80053; 84443; 85025; 96367; 96375; 96413; 96415; 99214; J1100; J1200; J1453; J1642; J2469; J3490; J7040; J7050; J9045; J9271; J9305

== ENCOUNTER 2023-08-29 08:44 | Oncology outpatient (recurring) (ONCR) | payer MEDICARE, SELFPAY ==
[2023-08-29] MEDS: zoledronic acid 4 MG in sodium chloride 0.9% (100 ml) 100 ML 420 MG IV (09:47)
[2023-08-29 10:21] VITALS: BP 106/67; PULSE 92; RESP 17; TEMP 36.2; O2SAT 95
== END 2023-09-05 23:59 | disposition home or self-care (01) ==
LOC: ONCMED 08:45
PROVIDERS: PCP Family Medicine; Visit Provider Specialist
DX: C79.51 Secondary malignant neoplasm of bone; C34.11 Malignant neoplasm of upper lobe, right bronchus or lung
CPT/HCPCS: 96365; J1642; J3489

== ENCOUNTER 2023-09-06 08:55 | Outpatient (CLI) | payer MEDICARE, SELFPAY ==
--- NOTE | 2023-09-06 10:00 | CT_ITS ---
WS: [id number] CT CHEST, ABDOMEN AND PELVIS WITH CONTRAST HISTORY: lung cancer TECHNIQUE: Contiguous 5 mm axial imaging performed through the chest, abdomen and pelvis with IV cont rast, oral contrast has been provided. Coronal and sagittal reformats chest. Coronal and sagittal ref ormats through the abdomen and pelvis. All CT scans at [facility] use at least one of these d ose optimization techniques: automated exposure control; mA and/or kV adjustment per patient size (in cludes targeted exams where dose is matched to clinical indication); or iterative reconstruction. CONTRAST: Omnipaque 350; 100 mL IV. DLP: 1221.78 mGy.cm COMPARISON: 03/27/2023,, PET/CT 04/14/[address]: Severe emphysema. Numerous bulla in a paraseptal distribution. Large solid spiculated mass with pleural tethering is reidentified at the RIGHT apex. Mass measures 3.7 x 3.7 x 4.9 cm. Mass has slightly decreased in size as compared to 03/27/2023. No additional pulmonary mass or nodule. No pneum onia. No pericardial or pleural effusions. Heart is normal size. There are a few small mediastinal an d hilar lymph nodes. Largest lymph node is 1.7 cm at the RIGHT hilum. Liver lobe measures slightly cy sts greater in size as compared to the prior study. On the PET/CT there were no FDG avid lymph node i dentified. Mild gynecomastia. Increased sclerosis within a large portion of the T5 and T6 vertebral bodies was noted to be metastat ic disease on prior PET/CT imaging. The metastatic osteoblastic changes within the T6 vertebral body have progressed. New osteoblastic changes in the posterior RIGHT lateral T4 vertebral body. Abdomen CT: Well-circumscribed low-attenuation 7 mm mass in the inferior RIGHT lobe of the liver stab le since 03/27/2023. Gallbladder is negative. No portal vein thrombus. Splenic granulomata. Normal hicks creas. Bilateral metastatic masses within the adrenal glands. RIGHT adrenal gland metastasis measures 4.7 x 4.2 cm. LEFT adrenal gland metastasis measures 3.7 x 3.0 cm. No renal obstruction. There is a large L EFT renal cyst measuring 8.9 x 7.7 cm. No renal obstruction. Atherosclerosis aorta. No GI tract obstr uction. Pelvic CT: No ascites. No adenopathy. Reidentified is a peritoneal implant posterior to the inferior RIGHT lobe of the liver measuring 1.5 cm. There is an additional implant in the RIGHT lower quadrant inferior to the cecum measuring 1.6 cm. These implants were positive on the PET/CT and appears slight ly larger in size. Mixed sclerotic lytic changes in the lumbar vertebral bodies were negative on prior PET/CT and probab ly a Schmorl's nodes. IMPRESSION: 1. Reidentified is a PET/CT avid spiculated mass at the RIGHT apex now measuring 3.7 x 3.9 x 4.9 cm. On the prior PET/CT RIGHT upper lobe mass measured 6.1 x 4.4 x 5.2 cm. 2. Severe paraseptal emphysema. 3. There are a few small indeterminate mediastinal and hilar lymph nodes. These lymph nodes were not positive on the prior PET/CT. 4. Metastatic implants involving the peritoneum posterior to the RIGHT lobe of the liver and posteri or to the cecum are identified with slight increase in size since 04/14/2023. No new implants. 5. T5 and T6 metastatic disease has progressed. There is a new metastatic site in the RIGHT lateral T4 vertebral body involving approximately 25%. No soft tissue mass. 6. Bilateral adrenal metastasis with no improvement.
[2023-09-06] MEDS: iohexol 350 mg/mL 500 mL Btl (per mL) IV (10:07)
[2023-09-06] MEDS: iohexol 350 mg/mL 500 mL Btl (per mL) PO (10:07)
--- NOTE | 2023-09-06 12:15 | MR_ITS ---
WS: [id number] MRI HEAD WITH CONTRAST TECHNIQUE: Sagittal T1, T2 axial, T2 axial FLAIR, axial susceptibility weighted imaging, axial diffus ion weighted images, and coronal T2 images were obtained. Pre and post-T1 axial and post T1 coronal i mages. ADC and FSPGR images. CLINICAL INFORMATION: lung cancer, brain mets COMPARISON: MRI 07/09/2023 FINDINGS: No evidence of restricted diffusion to suggest acute ischemia. Interval treatment of the previously d escribed intracranial metastatic lesions. Associated hemosiderin with these lesions similar to previo us. Interval decrease in the surrounding edema compared to the prior examination. Persistent T1 hyper intense hemorrhagic lesions with surrounding hemosiderin. Lesions decreased in size compared to prev ious. For example RIGHT frontal lesion previously measured 1.9 cm and today measures 1.4 cm. No evide nce of new or progressed disease. Persistent enhancing lesions within the cerebellum. No significant mass effect or midline shift. Mild small vessel changes. Moderate parenchymal volume loss. Small vessel changes in the alisha. Tiny c hronic lacunar infarct LEFT cerebellum. Normal vascular flow voids at the skull base. No extra-axial fluid collections. Paranasal sinuses and mastoid air cells are well aerated. Normal posterior nasopha rynx. Normal optic chiasm and pituitary infundibulum. IMPRESSION: 1. Mild interval improvement in the previously described numerous supra and infratentorial enhancing metastatic lesions with associated blood products and hemosiderin. Findings compatible with interval response to therapy. 2. Lesions have decreased in size but persist with decreased edema today. No evidence of new or prog ressed disease. 3. No other significant changes.
== END 2023-09-06 08:56 | disposition home or self-care (01) ==
LOC: RAD 08:55
PROVIDERS: PCP Family Medicine; Visit Provider Internal Medicine Medical Oncology
DX: C34.91 Malignant neoplasm of unspecified part of right bronchus or lung (principal); C79.31 Secondary malignant neoplasm of brain; C78.6 Secondary malignant neoplasm of retroperitoneum and peritoneum; C79.72 Secondary malignant neoplasm of left adrenal gland; C79.71 Secondary malignant neoplasm of right adrenal gland; J43.8 Other emphysema
CPT/HCPCS: 70553; 71260; 74177; Q9967

== ENCOUNTER 2023-09-12 09:30 | Oncology outpatient (recurring) (ONCR) | payer MEDICARE, SELFPAY ==
[2023-09-12 09:31] LABS: Basophils % 0.2 %; Hematocrit 36.6 % (37-53); Lymphocytes # 0.7 10^3/uL (0.8-4.8); Mean Corpuscular HGB Conc 33.6 g/dL (30-55); Mean Corpuscular Hemoglobin 30.6 pg (27-33); Mean Platelet Volume 9.1 fL (7.4-10.4); Monocytes # 0.6 10^3/uL (0.2-0.9); Monocytes % 10.1 %; Neutrophils # 4.45 10^3/uL (1.8-7.7); Nucleated Red Blood Cells % 0 %; Platelet Count 410 10^3/cmm (157-399); Red Blood Count 4.02 10^6/uL (3.85-5.65); Red Cell Distribution Width 16.2 % (12.1-15.1); White Blood Count 5.77 10^3/uL (3.29-11.43)
[2023-09-12 10:18] LABS: Alanine Aminotransferase 12 U/L (0-41); Albumin Level 3.5 g/dL (3.5-5.2); Alkaline Phosphatase 99 U/L (40-130); Anion Gap 16.5 (5-19); Aspartate Amino Transferase 14 U/L (0-40); Blood Urea Nitrogen 11 mg/dL (8-23); Calcium 8.7 mg/dL (8.5-10.5); Carbon Dioxide 25 mmol/L (22-29); Chloride 98 mmol/L (98-107); Globulin 3.7 g/dL (1.3-4.6); Glomerular Filtration Rate 95.8 mL/min (90-130); Glucose 139 mg/dL (65-115); Osmolality Calculated 282 mOsm/kg (285-295); Potassium 4.5 mmol/L (3.5-5.1); Sodium 135 mmol/L (136-145); Total Bilirubin 0.3 mg/dL (0.15-1.2); Total Protein 7.2 g/dL (6.6-8.7)
[2023-09-12] MEDS: sodium chloride 0.9% 250 ML 50 ML IV (11:53)
[2023-09-12] MEDS: cyanocobalamin 1,000 mcg/mL SDV 1000 MCG IM (11:53)
[2023-09-12] MEDS: diphenhydrAMINE 50 mg/mL SDV 1mL 25 MG IVP (11:54)
[2023-09-12] MEDS: OLANZapine 5 mg TABLET PO (11:58)
[2023-09-12] MEDS: famotidine 20 mg/2 mL INJ IVP (12:01)
[2023-09-12] MEDS: palonosetron 0.25 mg/5 mL SDV IVP (12:03)
[2023-09-12] MEDS: fosaprepitant 150 MG in sodium chloride 0.9% 150 ML 300 MG IV (12:07)
[2023-09-12] MEDS: pembrolizumab 200 MG in sodium chloride 0.9% 250 ML 516 MG IV (13:23)
[2023-09-12] MEDS: PEMETREXED DISODIUM IV (14:15)
[2023-09-12] MEDS: [UNRECOGNIZED DRUG - OTHER] IV (14:15)
[2023-09-12] MEDS: CARBOplatin 750 MG in sodium chloride 0.9% 500 ML 575 MG IV (14:57)
[2023-09-12 16:45] VITALS: BP 117/75; PULSE 90; RESP 17; TEMP 36.2; O2SAT 98
== END 2023-09-12 23:59 | disposition home or self-care (01) ==
PROVIDERS: Internal Medicine Medical Oncology; PCP Family Medicine; Visit Provider Radiology Radiation Oncology
DX: C79.31 Secondary malignant neoplasm of brain; C79.51 Secondary malignant neoplasm of bone; Z95.828 Presence of other vascular implants and grafts; C34.11 Malignant neoplasm of upper lobe, right bronchus or lung; F17.210 Nicotine dependence, cigarettes, uncomplicated; Z79.52 Long term (current) use of systemic steroids; Z79.01 Long term (current) use of anticoagulants; Z79.899 Other long term (current) drug therapy; Z53.9 Procedure and treatment not carried out, unspecified reason; Z51.11 Encounter for antineoplastic chemotherapy; Z51.12 Encounter for antineoplastic immunotherapy; Z92.3 Personal history of irradiation
CPT/HCPCS: 70553; 71260; 74177; 80053; 85025; 96367; 96372; 96375; 96413; 96417; 99214; A4222; J1100; J1200; J1453; J1642; J2469; J3420; J3490; J7040; J7050; J9045; J9271; J9305; Q9967

== ENCOUNTER → 2023-09-18 14:51 | Outpatient (BNVA) | payer MEDICARE, SELFPAY | PROVIDERS: PCP Family Medicine; Visit Provider Nurse Practitioner Family | DX: I50.9 Heart failure, unspecified (principal); C34.11 Malignant neoplasm of upper lobe, right bronchus or lung | CPT/HCPCS: 71046 ==

== ENCOUNTER 2023-10-03 03:29 | Emergency (ER) | payer MEDICARE, SELFPAY ==
[2023-10-03 03:31] VITALS: BMI 25.7
[2023-10-03 03:36] VITALS: BP 99/56; PULSE 107; RESP 18; TEMP 36.3; O2SAT 93
--- NOTE | 2023-10-03 03:41 | W.ED.FALL ---
Documented by User: Kashmir Rouse DO 10/03/23 04:06 HPI - Fall General: Chief Complaint: Fall Stated Complaint: fall Time Seen by Provider: 10/03/23 03:34 History of Present Illness: Patient arrived via EMS from home with complaints of a fall earlier tonight. Patient is alert and oriented x 4 and denies any complaints at this time. Patient says family insisted that the patient needed to come to the ER to be checked out. Patient's family arrived the said that patient has been in bed for 2 days and not been eating or drinking very much at all. I think he is dehydrated, he did fall on his way to get up to urinate this morning and had already urinated on himself. They patient is very weak and intermittently confused. Review of Systems General: Reports: 10 or more systems reviewed and unremarkable except in HPI and below PFSH ED PFSH: Medical History Metastasis to bone Adenocarcinoma of right lung, stage 4 Atrial fibrillation CHF (congestive heart failure), NYHA class III Tobacco abuse Obesity Surgical History Port-A-Cath in place 07/11/23 Dr. Nunez Social History Smoking and tobacco/nicotine status: current every day tobacco/nicotine user (0.5 ppd X >50 years) cigarettes Packs smoked per day: 1 Years cigarettes smoked: 54 [ Other cigarette details: started at age 13] Physical Exam Const: COMMON NORMALS: no acute distress, average body habitus, patient oriented x3, no limitations, healthy appearing, alert and well nourished HENMT: COMMON NORMALS: normocephalic, atraumatic, hearing grossly normal bilaterally, external ears normal, EAC's normal, Normal external nose present, moist oral mucous membranes and oropharynx normal HEAD & SCALP: normocephalic and atraumatic NOSE: Normal external nose present EXTERNAL EAR: Yes external ears normal EXTERNAL AUDITORY CANAL: EAC's normal Neck/C-Spine: COMMON NORMALS: full ROM, no lymphadenopathy, supple, no meningeal signs, no JVD and Thyroid normal THYROID: Thyroid normal Chest: COMMONS NORMALS: normal inspection of the chest and normal palpation of entire chest wall Resp: COMMON NORMALS: normal respiratory effort, No retractions, No use of accessory muscles and clear to auscultation bilaterally AUSCULTATION: clear to auscultation bilaterally Cardio: COMMON NORMALS: no JVD, regular rate, regular rhythm, S1 normal heart sound present, S2 normal heart sound present, No gallops present (Cardio), No clicks present (Cardio), No murmurs present (Cardio) and No rub (Cardio) RATE: regular rate RHYTHM: regular rhythm HEART SOUNDS: S1 normal heart sound present and S2 normal heart sound present GI: COMMON NORMALS: Normal to inspection, nondistended, normoactive bowel sounds present, Soft to palpation, non-tender, No hepatosplenomegaly present and no masses PALPATION: Yes Soft to palpation and Yes No hepatosplenomegaly present Neuro: COMMON NORMALS: patient oriented x3 SENSORIUM/ORIENTATION: Yes alert MENINGEAL SIGNS: Yes no meningeal signs Course Vital Signs: Vital signs: Vital Signs Temperature 97.4 F L 10/03/23 03:36 Pulse Rate 89 10/03/23 05:30 Respiratory Rate 18 10/03/23 05:30 Blood Pressure 99/49 10/03/23 05:30 Pulse Oximetry 91 10/03/23 05:30 Oxygen Delivery Me thod Room Air 10/03/23 03:36 MDM - Fall Differential Diagnosis Unlikely syncope, dislocation of shoulder region, fracture of wrist, compression fracture, concussion with loss of consciousness or concussion without loss of consciousness Medical Records I reviewed the patient's medical records. Lab Data I reviewed the patient's lab results. 10/03/23 04:12 10/03/23 04:12 Radiology Impressions Chest X-Ray 10/03/23 04:03 IMPRESSION: No acute cardiopulmonary findings. Head CT 10/03/23 06:46 IMPRESSION: 1. No acute intracranial hemorrhage or infarct. 2. Multiple rounded foci previously described as metastatic lesions are unchanged in size and number. Laboratory Results WBC 3.36 10^3/uL (3.29-11.43) 10/03/23 04:12 RBC 3.43 10^6/uL (3.85-5.65) L 10/03/23 04:12 Hgb 10.70 g/dL (11.27-16.99) L 10/03/23 04:12 Hct 31.7 % (37-53) L 10/03/23 04:12 MCV 92.4 fl (82-101) 10/03/23 04:12 MCH 31.2 pg (27-33) 10/03/23 04:12 MCHC 33.8 g/dL (30-55) 10/03/23 04:12 RDW 17.5 % (12.1-15.1) H 10/03/23 04:12 Plt Count 132 10^3/cmm (157-399) L 10/03/23 04:12 MPV 10.0 fL (7.4-10.4) 10/03/23 04:12 Neut % (Auto) 57.4 % 10/03/23 04:12 Lymph % (Auto) 20.8 % 10/03/23 04:12 [place] % (Auto) 17.9 % 10/03/23 04:12 Eos % (Auto) 2.1 % 10/03/23 04:12 Baso % (Auto) 0.3 % 10/03/23 04:12 Neut # (Auto) 1.93 10^3/uL (1.8-7.7) 10/03/23 04:12 Lymph # (Auto) 0.7 10^3/uL (0.8-4.8) L 10/03/23 04:12 [place] # (Auto) 0.6 10^3/uL (0.2-0.9) 10/03/23 04:12 Eos # (Auto) 0.1 10^3/uL (0.0-0.8) 10/03/23 04:12 Baso # (Auto) 0.0 10^3/uL (0.0-0.1) 10/03/23 04:12 Nucleated RBC % (auto) 0 % 10/03/23 04:12 Nucleated RBCs # 0.0 /100WBC 10/03/23 04:12 Sodium 136 mmol/L (136-145) 10/03/23 04:12 Potassium 3.9 mmol/L (3.5-5.1) 10/03/23 04:12 Chloride 99 mmol/L (98-107) 10/03/23 04:12 Carbon Dioxide 25 mmol/L (22-29) 10/03/23 04:12 Anion Gap 15.9 (5-19) 10/03/23 04:12 BUN 12 mg/dL (8-23) 10/03/23 04:12 Creatinine 0.9 mg/dL (0.7-1.2) 10/03/23 04:12 GFR Calculation 83.7 mL/min (90-130) L 10/03/23 04:12 Glucose 130 mg/dL (65-115) H 10/03/23 04:12 Calculated Osmolality 284 mOsm/kg (285-295) L 10/03/23 04:12 Calcium 8.0 mg/dL (8.5-10.5) L 10/03/23 04:12 Magnesium 2.0 mg/dL (1.7-2.3) 10/03/23 04:12 Total Bilirubin 0.5 mg/dL (0.15-1.2) 10/03/23 04:12 AST 15 U/L (0-40) 10/03/23 04:12 ALT 11 U/L (0-41) 10/03/23 04:12 Alkaline Phosphatase 89 U/L (40-130) 10/03/23 04:12 Ammonia 16 umol/L (16-60) 10/03/23 09:47 Total Protein 6.3 g/dL (6.6-8.7) L 10/03/23 04:12 Albumin 3.3 g/dL (3.5-5.2) L 10/03/23 04:12 Globulin 3.0 g/dL (1.3-4.6) 10/03/23 04:12 Urine Color Dark yellow (Yellow) 10/03/23 06:46 Urine Appearance Clear (CLEAR) 10/03/23 06:46 Urine pH 5 (5-7) 10/03/23 06:46 Ur Specific [place] 1.020 (1.005-1.030) 10/03/23 06:46 Urine Protein 1+ (Negative) H 10/03/23 06:46 Urine Glucose (UA) Norm (Normal) 10/03/23 06:46 Urine Ketones 1+ (Negative) H 10/03/23 06:46 Urine Blood Neg (Negative) 10/03/23 06:46 Urine Nitrate Negative (Negative) 10/03/23 06:46 Urine Bilirubin 1+ (Negative) H 10/03/23 06:46 Urine Urobilinogen 1 mg/dL (Negative) H 10/03/23 06:46 Ur Leukocyte Esterase Trace (Negative) H 10/03/23 06:46 Urine RBC None /hpf (0-2) 10/03/23 06:46 Urine WBC 0-4 /hpf (0-5) H 10/03/23 06:46 Ur Squamous Epith Cells Rare /hpf (0-5) 10/03/23 06:46 Amorphous Sediment Not Reportable 10/03/23 06:46 Urine Bacteria Trace /hpf (NONE) 10/03/23 06:46 Digoxin 0.6 ng/mL (0.6-1.2) 10/03/23 04:12 No radiology studies performed this visit Discharge Plan Discharge Patient Disposition: Home Clinical Impression: Adenocarcinoma of right lung, stage 4, Delirium Condition: Stable Prescriptions: Held metoprolol succinate 100 mg tablet extended release 24 hr 100 mg PO BID Qty: 180 3RF Hold Instructions: until seen by doctor Rx Instructions: Take in addition to 25mg tab BID to equal 125mg BID No Action multivitamin Tablet 1 tab PO DAILY cholecalciferol (vitamin D3) 25 mcg (1,000 unit) capsule 25 mcg PO DAILY prochlorperazine maleate [Compazine] 10 mg tablet 10 mg PO Q4H PRN (Reason: nausea and vomiting) Qty: 30 3RF lorazepam 1 mg tablet 1 mg PO Q4H PRN (Reason: severe nausea) Qty: 30 3RF miconazole nitrate [Antifungal (miconazole)] 2 % cream 1 applic topical BID Qty: 28 3RF lidocaine-prilocaine 2.5-2.5 % cream 1 applic topical .COMPLEX Qty: 30 3RF Rx Instructions: Apply quarter size amount 30-45 minutes prior to port access, cover with cellophane metoprolol succinate 25 mg tablet extended release 24 hr 25 mg PO BID Qty: 180 3RF Rx Instructions: Take in addition to 100mg tab BID to equal 125mg BID digoxin 125 mcg (0.125 mg) tablet 125 mcg PO DAILY Qty: 90 3RF Xarelto 20 mg tablet 20 mg PO DAILY Qty: 90 3RF Rx Instructions: must administer with evening meal lactulose 10 gram/15 mL solution 10 g PO BID PRN (Reason: constipation) Qty: 473 1RF pantoprazole [Protonix] 40 mg tablet,delayed release (DR/EC) 40 mg PO DAILY Qty: 30 3RF ondansetron HCl 4 mg tablet 4 mg PO Q6H PRN (Reason: nausea and vomiting) Qty: 30 3RF folic acid 1 mg tablet 1 mg PO DAILY Qty: 30 3RF Rx Instructions: start prior to chemotherapy treatment docusate sodium [Colace] 100 mg capsule 100 mg PO BID Qty: 60 3RF spironolactone 25 mg tablet 12.5 mg PO DAILY Qty: 90 1RF morphine 30 mg tablet extended release 30 mg PO Q12H 30 Days Qty: 60 0RF Stiolto Respimat 2.5-2.5 mcg/actuation mist 2 puff inhalation DAILY Qty: 4 6RF Entresto 49-51 mg tablet 1 tab PO BID Qty: 180 1RF Discharge Orders: Discharge ED (Routine); Ordered 10/03/23 Ordered By: Ryder Pennington Referrals: Orion Summers [Primary Care Provider] - Discharge Diet: Usual diet Discharge Activity: Increase activity as tolerated Patient Instructions: Opioid Safety, Pain Management Activity Restrictions/Additional Instructions: Hold his metoprolol as directed. Ensure that he drinks at least 4 to 6 12 ounce glasses of water daily. Continue his usual medications. Follow-up with Dr. Vann for reevaluation if it anytime you have worsening symptoms you are welcome to return to the emergency department for reevaluation. Coding Level of Care Code ED Project Eng for Chg Fwd Documented by User: Ryder Pennington DO 10/03/23 10:44 HPI - Fall General: Chief Complaint: Fall Stated Complaint: fall Time Seen by Provider: 10/03/23 03:34 PFS ED PFSH: Medical History Metastasis to bone Adenocarcinoma of right lung, stage 4 Atrial fibrillation CHF (congestive heart failure), NYHA class III Tobacco abuse Obesity Surgical History Port-A-Cath in place 07/11/23 Dr. Nunez Social History Smoking and tobacco/nicotine status: current every day tobacco/nicotine user (0.5 ppd X >50 years) cigarettes Packs smoked per day: 1 Years cigarettes smoked: 54 [ Other cigarette details: started at age 13] Course Reevaluation(s): Reevaluation #1: This patient was checked out to me by the overnight ED physician. Patient was transported via EMS from his home after suffering a fall. Apparently the patient has a history of lung cancer is ongoing therapy from oncology him to include chemotherapy. On arrival the patient initially denied any complaints however the family subsequently arrived and added additional history that the patient has been more weak than usual over the past 2 days and had more than 1 fall. Review of initial findings revealed slight drop in his hemoglobin but no other initial laboratory abnormalities. EKG ordered on my arrival revealed him to be in atrial fibrillation with a borderline ventricular response of 103 bpm but no acute changes. And apparently does have a history of atrial fibrillation and also takes rivaroxaban for stroke risk reduction. We are awaiting a urinalysis and I will proceed with a CT scan of his head to ensure that there is no intracranial hemorrhage etc. Time: 06:45 Reevaluation #2: Patient ambulated about the emergency department out difficulty. This was done in the presence of the family. I was able to reinterview him in the presence of family which I did not have the opportunity to do earlier and they relate that he has also been confused over the last 2 days with poor oral intake which is new for him. They are unaware of him having fevers etc. His clinical exam revealed him to be alert and cooperative and pleasant however he did exhibit some fusion as to where he was. There was no focal physical findings on repeat examination. Concern is that he having delirium due to hepatic encephalopathy and therefore going to order an ammonia level. I also question the family about his opiate use. He states that he takes his long-acting morphine but no other opiates in between. Time: 08:54 Reevaluation #3: Patient's ammonia level is normal. Review of his chart and current findings did not reveal any obvious reversible causes today that would explain his symptoms. Again he is undergoing chemotherapy for his metastatic disease and that is likely the etiology of much of his presentation. This was discussed in detail with family members who voiced understanding and were perfectly fine with taking her home at this point. We discussed return precautions and also need for follow-up with oncology. Time: 10:40 Vital Signs: Vital signs: Vital Signs Temperature 97.4 F L 10/03/23 03:36 Pulse Rate 89 10/03/23 05:30 Respiratory Rate 18 10/03/23 05:30 Blood Pressure 99/49 10/03/23 05:30 Pulse Oximetry 91 10/03/23 05:30 Oxygen Delivery Me thod Room Air 10/03/23 03:36 MDM - Fall Medical Decision Making This patient who had presented to the emergency department on the overnight shift due to falls and subsequently additional information forthcoming about weakness decreased intake and some intermittent confusion from the family. Workup initiated in the overnight physician care and continued in the morning to work up and evaluate for signs of infection, intracranial hemorrhage or other reversible causes of his current presentation. He did receive fluid hydration in the emergency department and reevaluation. He was ambulating without difficulty had acceptable vital signs. After prolonged observation in the emergency department family was engaged in a discussion regarding current findings and expectations and plan of care. They agreed to take him home and follow-up with oncology. We also advised to not take any more of his antihypertensives as they may be a contributing factor to some of his blood pressure. Lab Data I reviewed the patient's lab results. 10/03/23 04:12 10/03/23 04:12 Radiology Impressions Chest X-Ray 10/03/23 04:03 IMPRESSION: No acute cardiopulmonary findings. Head CT 10/03/23 06:46 IMPRESSION: 1. No acute intracranial hemorrhage or infarct. 2. Multiple rounded foci previously described as metastatic lesions are unchanged in size and number. Laboratory Results WBC 3.36 10^3/uL (3.29-11.43) 10/03/23 04:12 RBC 3.43 10^6/uL (3.85-5.65) L 10/03/23 04:12 Hgb 10.70 g/dL (11.27-16.99) L 10/03/23 04:12 Hct 31.7 % (37-53) L 10/03/23 04:12 MCV 92.4 fl (82-101) 10/03/23 04:12 MCH 31.2 pg (27-33) 10/03/23 04:12 MCHC 33.8 g/dL (30-55) 10/03/23 04:12 RDW 17.5 % (12.1-15.1) H 10/03/23 04:12 Plt Count 132 10^3/cmm (157-399) L 10/03/23 04:12 MPV 10.0 fL (7.4-10.4) 10/03/23 04:12 Neut % (Auto) 57.4 % 10/03/23 04:12 Lymph % (Auto) 20.8 % 10/03/23 04:12 [place] % (Auto) 17.9 % 10/03/23 04:12 Eos % (Auto) 2.1 % 10/03/23 04:12 Baso % (Auto) 0.3 % 10/03/23 04:12 Neut # (Auto) 1.93 10^3/uL (1.8-7.7) 10/03/23 04:12 Lymph # (Auto) 0.7 10^3/uL (0.8-4.8) L 10/03/23 04:12 [place] # (Auto) 0.6 10^3/uL (0.2-0.9) 10/03/23 04:12 Eos # (Auto) 0.1 10^3/uL (0.0-0.8) 10/03/23 04:12 Baso # (Auto) 0.0 10^3/uL (0.0-0.1) 10/03/23 04:12 Nucleated RBC % (auto) 0 % 10/03/23 04:12 Nucleated RBCs # 0.0 /100WBC 10/03/23 04:12 Sodium 136 mmol/L (136-145) 10/03/23 04:12 Potassium 3.9 mmol/L (3.5-5.1) 10/03/23 04:12 Chloride 99 mmol/L (98-107) 10/03/23 04:12 Carbon Dioxide 25 mmol/L (22-29) 10/03/23 04:12 Anion Gap 15.9 (5-19) 10/03/23 04:12 BUN 12 mg/dL (8-23) 10/03/23 04:12 Creatinine 0.9 mg/dL (0.7-1.2) 10/03/23 04:12 GFR Calculation 83.7 mL/min (90-130) L 10/03/23 04:12 Glucose 130 mg/dL (65-115) H 10/03/23 04:12 Calculated Osmolality 284 mOsm/kg (285-295) L 10/03/23 04:12 Calcium 8.0 mg/dL (8.5-10.5) L 10/03/23 04:12 Magnesium 2.0 mg/dL (1.7-2.3) 10/03/23 04:12 Total Bilirubin 0.5 mg/dL (0.15-1.2) 10/03/23 04:12 AST 15 U/L (0-40) 10/03/23 04:12 ALT 11 U/L (0-41) 10/03/23 04:12 Alkaline Phosphatase 89 U/L (40-130) 10/03/23 04:12 Ammonia 16 umol/L (16-60) 10/03/23 09:47 Total Protein 6.3 g/dL (6.6-8.7) L 10/03/23 04:12 Albumin 3.3 g/dL (3.5-5.2) L 10/03/23 04:12 Globulin 3.0 g/dL (1.3-4.6) 10/03/23 04:12 Urine Color Dark yellow (Yellow) 10/03/23 06:46 Urine Appearance Clear (CLEAR) 10/03/23 06:46 Urine pH 5 (5-7) 10/03/23 06:46 Ur Specific [place] 1.020 (1.005-1.030) 10/03/23 06:46 Urine Protein 1+ (Negative) H 10/03/23 06:46 Urine Glucose (UA) Norm (Normal) 10/03/23 06:46 Urine Ketones 1+ (Negative) H 10/03/23 06:46 Urine Blood Neg (Negative) 10/03/23 06:46 Urine Nitrate Negative (Negative) 10/03/23 06:46 Urine Bilirubin 1+ (Negative) H 10/03/23 06:46 Urine Urobilinogen 1 mg/dL (Negative) H 10/03/23 06:46 Ur Leukocyte Esterase Trace (Negative) H 10/03/23 06:46 Urine RBC None /hpf (0-2) 10/03/23 06:46 Urine WBC 0-4 /hpf (0-5) H 10/03/23 06:46 Ur Squamous Epith Cells Rare /hpf (0-5) 10/03/23 06:46 Amorphous Sediment Not Reportable 10/03/23 06:46 Urine Bacteria Trace /hpf (NONE) 10/03/23 06:46 Digoxin 0.6 ng/mL (0.6-1.2) 10/03/23 04:12 EKG Data EKG 1: I personally reviewed and interpreted this EKG as follows: Interpretation: EKG reveals ventricular rate of 103 bpm consistent with atrial fibrillation with a borderline rapid ventricular response. Normal QRS duration and QT corrected interval and no evidence of acute ST-T wave changes. Discharge Plan Discharge Patient Disposition: Home Clinical Impression: Adenocarcinoma of right lung, stage 4, Delirium Condition: Stable Prescriptions: Held metoprolol succinate 100 mg tablet extended release 24 hr 100 mg PO BID Qty: 180 3RF Hold Instructions: until seen by doctor Rx Instructions: Take in addition to 25mg tab BID to equal 125mg BID No Action multivitamin Tablet 1 tab PO DAILY cholecalciferol (vitamin D3) 25 mcg (1,000 unit) capsule 25 mcg PO DAILY prochlorperazine maleate [Compazine] 10 mg tablet 10 mg PO Q4H PRN (Reason: nausea and vomiting) Qty: 30 3RF lorazepam 1 mg tablet 1 mg PO Q4H PRN (Reason: severe nausea) Qty: 30 3RF miconazole nitrate [Antifungal (miconazole)] 2 % cream 1 applic topical BID Qty: 28 3RF lidocaine-prilocaine 2.5-2.5 % cream 1 applic topical .COMPLEX Qty: 30 3RF Rx Instructions: Apply quarter size amount 30-45 minutes prior to port access, cover with cellophane metoprolol succinate 25 mg tablet extended release 24 hr 25 mg PO BID Qty: 180 3RF Rx Instructions: Take in addition to 100mg tab BID to equal 125mg BID digoxin 125 mcg (0.125 mg) tablet 125 mcg PO DAILY Qty: 90 3RF Xarelto 20 mg tablet 20 mg PO DAILY Qty: 90 3RF Rx Instructions: must administer with evening meal lactulose 10 gram/15 mL solution 10 g PO BID PRN (Reason: constipation) Qty: 473 1RF pantoprazole [Protonix] 40 mg tablet,delayed release (DR/EC) 40 mg PO DAILY Qty: 30 3RF ondansetron HCl 4 mg tablet 4 mg PO Q6H PRN (Reason: nausea and vomiting) Qty: 30 3RF folic acid 1 mg tablet 1 mg PO DAILY Qty: 30 3RF Rx Instructions: start prior to chemotherapy treatment docusate sodium [Colace] 100 mg capsule 100 mg PO BID Qty: 60 3RF spironolactone 25 mg tablet 12.5 mg PO DAILY Qty: 90 1RF morphine 30 mg tablet extended release 30 mg PO Q12H 30 Days Qty: 60 0RF Stiolto Respimat 2.5-2.5 mcg/actuation mist 2 puff inhalation DAILY Qty: 4 6RF Entresto 49-51 mg tablet 1 tab PO BID Qty: 180 1RF Discharge Orders: Discharge ED (Routine); Ordered 10/03/23 Ordered By: Ryder Pennington Referrals: Orion Summers [Primary Care Provider] - Discharge Diet: Usual diet Discharge Activity: Increase activity as tolerated Patient Instructions: Opioid Safety, Pain Management Activity Restrictions/Additional Instructions: Hold his metoprolol as directed. Ensure that he drinks at least 4 to 6 12 ounce glasses of water daily. Continue his usual medications. Follow-up with Dr. Vann for reevaluation if it anytime you have worsening symptoms you are welcome to return to the emergency department for reevaluation. Coding Level of Care Code ED Project Eng for Александр Maldonado
--- NOTE | 2023-10-03 04:03 | XRR_ITS ---
PROCEDURE INFORMATION: Exam: XR Chest Exam date and time: 10/03/2023 4:09 AM Age: 67 years old Clinical indication: Shortness of breath; Prior surgery; Surgery date: 6+ months; Surgery type: Chest port; Patient HX: SOB with hypoxia. History of lung cancer with bone mets. TECHNIQUE: Imaging protocol: Radiologic exam of the chest. Views: 1 view. COMPARISON: CR XR chest 2V* [id number] 09/18/2023 3:46 PM FINDINGS: Tubes, catheters and devices: Right chest wall medical port with distal catheter terminating at the superior cavoatrial junction. Port is accessed by Hubner needle. Lungs: Unremarkable. No consolidation. Pleural spaces: Unremarkable. No pleural effusion. No pneumothorax. Heart/Mediastinum: Unremarkable. No cardiomegaly. Bones/joints: Suggestion of left chest wall expansile lytic lesion with surrounding sclerosis, stable from prior comparison. XR/XR chest 1V portable [id number] IMPRESSION: No acute cardiopulmonary findings.
[2023-10-03 04:18] LABS: Basophils % 0.3 %; Eosinophils # 0.1 10^3/uL (0.0-0.8); Eosinophils % 2.1 %; Hematocrit 31.7 % (37-53); Lymphocytes # 0.7 10^3/uL (0.8-4.8); Lymphocytes % 20.8 %; Mean Corpuscular HGB Conc 33.8 g/dL (30-55); Mean Corpuscular Hemoglobin 31.2 pg (27-33); Mean Corpuscular Volume 92.4 fl (82-101); Monocytes # 0.6 10^3/uL (0.2-0.9); Monocytes % 17.9 %; Neutrophils # 1.93 10^3/uL (1.8-7.7); Neutrophils % 57.4 %; Nucleated Red Blood Cells % 0 %; Platelet Count 132 10^3/cmm (157-399); Red Blood Count 3.43 10^6/uL (3.85-5.65); Red Cell Distribution Width 17.5 % (12.1-15.1); White Blood Count 3.36 10^3/uL (3.29-11.43)
[2023-10-03] MEDS: sodium chloride 0.9% 1,000 ML 999 ML IV ×2 (04:19→05:35)
[2023-10-03 04:35] LABS: Alanine Aminotransferase 11 U/L (0-41); Albumin Level 3.3 g/dL (3.5-5.2); Alkaline Phosphatase 89 U/L (40-130); Anion Gap 15.9 (5-19); Aspartate Amino Transferase 15 U/L (0-40); Blood Urea Nitrogen 12 mg/dL (8-23); Carbon Dioxide 25 mmol/L (22-29); Chloride 99 mmol/L (98-107); Glomerular Filtration Rate 83.7 mL/min (90-130); Glucose 130 mg/dL (65-115); Osmolality Calculated 284 mOsm/kg (285-295); Potassium 3.9 mmol/L (3.5-5.1); Sodium 136 mmol/L (136-145); Total Bilirubin 0.5 mg/dL (0.15-1.2); Total Protein 6.3 g/dL (6.6-8.7)
[2023-10-03 04:40] LABS: Digoxin 0.6 ng/mL (0.6-1.2)
[2023-10-03 05:30] VITALS: BP 99/49; PULSE 89; RESP 18; O2SAT 91
--- NOTE | 2023-10-03 06:09 | PC.NURSE ---
bladder scanner used, 191 ml urine in bladder, pt attempting to urinate again
--- NOTE | 2023-10-03 06:27 | ECG_ITS ---
[facility] Test Date: 2023-10-03 Pat Name: Jaleel Rhodes Department: Room: Gender: Male Web Application Dev Specialist: : [id number] Requested By: Ryder Pennington Order Number: [id number] Belen MD: Gilberto Weathers M.D. Measurements Intervals [place] Rate: 103 P: 0 WV: 0 QRS: 20 QRSD: 94 T: 28 QT: 328 QTc: 431 Interpretive Statements ATRIAL FIBRILLATION WITH RAPID VENTRICULAR RESPONSE LOW QRS VOLTAGE IN PRECORDIAL LEADS [QRS DEFLECTION < 1.0 mV IN CHEST LEADS] NONSPECIFIC T-WAVE ABNORMALITY Compared to ECG 03/27/2023 19:17:18 Low QRS voltage now present T-wave abnormality still present Electronically Signed On 10-03-2023 9:13:50 CARD CUTTER HELPER by Gilberto Weathers M.D. [email or web address]
--- NOTE | 2023-10-03 06:46 | CTR_ITS ---
PROCEDURE INFORMATION: Exam: CT Head Without Contrast Exam date and time: 10/03/2023 6:52 AM Age: 67 years old Clinical indication: Injury or trauma; Other: Fall on doac; HX of mets from lung CA TECHNIQUE: Imaging protocol: Computed tomography of the head without contrast. Radiation optimization: All CT scans at this facility use at least one of these dose optimization techniques: automated exposure control; mA and/or kV adjustment per patient size (includes targeted exams where dose is matched to clinical indication); or iterative reconstruction. COMPARISON: MR head wo/w con [id number] 09/06/2023 11:39 AM RADIATION DOSE METRICS: Total DLP (mGy-cm): 1201.68 FINDINGS: Brain: Redemonstrated multiple rounded hypodensities compatible with intracranial metastases, grossly unchanged in size and number. These include an 8 mm right posterior centrum semiovale lesion, as well as 2 right frontal lobe lesions measuring 12 mm and 14 mm respectively. These 3 lesions demonstrate ring shaped hyperdense peripheries, correlating to hemosiderin/blood products as seen on September 06, 2023 MRI brain. Left and right cerebellar focal hypodensities (largest measuring 6 mm the left) are also unchanged. No mass, mass effect, extra-axial fluid collection, or hemorrhage. No extra-axial fluid collection. Basilar cisterns are patent .. Mild degree of periventricular hypodensities compatible age-appropriate chronic small vessel white matter ischemic changes. Cerebral ventricles: Mild age-appropriate global cortical atrophy with associated ventricular prominence Paranasal sinuses: Visualized paranasal sinuses are clear. Mastoid air cells: Mastoid air cells are clear Bones/joints: Calvarium is intact. Soft tissues: Unremarkable. CT/CT head wo con* [id number] IMPRESSION: 1. No acute intracranial hemorrhage or infarct. 2. Multiple rounded foci previously described as metastatic lesions are unchanged in size and number.
[2023-10-03 07:20] LABS: Urine Appearance Clear (CLEAR); Urine Color Dark yellow (Yellow); pH Urine 5 (5-7)
[2023-10-03 07:21] LABS: Add Urine Microscopic? YES; Bilirubin Urine 1+ (Negative); Blood Urine Neg (Negative); Glucose Urine UA Norm (Normal); Ketones Urine 1+ (Negative); Leukocyte Esterase Urine Trace (Negative); Nitrate Urine Negative (Negative); Protein Urine 1+ (Negative); Urobilinogen Urine 1 mg/dL (Negative)
[2023-10-03 07:22] LABS: Add Urine Culture? No; Bacteria Urine TRACE /hpf; Squamous Epithelial Cell Urine RARE /hpf (0-5); WBC Urine 0-4 /hpf (0-5)
[2023-10-03 10:20] LABS: Ammonia 16 umol/L (16-60)
== END 2023-10-03 10:59 | disposition home or self-care (01) ==
PROVIDERS: Emergency Medicine; Emergency Provider Emergency Medicine; PCP Family Medicine
DX: R41.0 Disorientation, unspecified (principal); C34.91 Malignant neoplasm of unspecified part of right bronchus or lung; I50.9 Heart failure, unspecified; F17.210 Nicotine dependence, cigarettes, uncomplicated
CPT/HCPCS: 70450; 71045; 80053; 80162; 81001; 82140; 83735; 85025; 93005; 96360; 96361; 99285; J7030

== ENCOUNTER 2023-10-04 11:18 | Oncology outpatient (recurring) (ONCR) | payer MEDICARE, SELFPAY ==
[2023-09-26 15:06] VITALS: BP 94/61; PULSE 87; RESP 17; TEMP 36.1; O2SAT 95
[2023-09-26] MEDS: zoledronic acid (Zometa) 4 MG/100 ML PIGGYBACK 400 MG IV (15:11)
[2023-09-26 15:50] VITALS: BP 90/58; PULSE 83; RESP 17; TEMP 36; O2SAT 95
== END 2023-10-04 23:59 | disposition home or self-care (01) ==
PROVIDERS: PCP Family Medicine; Visit Provider Internal Medicine Medical Oncology
DX: C79.31 Secondary malignant neoplasm of brain; C79.51 Secondary malignant neoplasm of bone; Z79.899 Other long term (current) drug therapy; Z79.52 Long term (current) use of systemic steroids; R53.83 Other fatigue; I95.9 Hypotension, unspecified; R06.02 Shortness of breath; R00.0 Tachycardia, unspecified; I48.91 Unspecified atrial fibrillation; R09.02 Hypoxemia; C34.11 Malignant neoplasm of upper lobe, right bronchus or lung
CPT/HCPCS: 96365; 99214; J1642; J3489

== ENCOUNTER 2023-10-10 11:17 | Inpatient (IN) | payer MEDICARE, SELFPAY ==
[2023-10-10] VITALS (42 sets, daily range): BP systolic 73–129; BP diastolic 43–74; PULSE 78–128; RESP 13–28; TEMP 36.2–36.8; O2SAT 85–100; BMI 28.0
--- NOTE | 2023-10-10 11:12 | PM.HP ---
Providers/Chief Complaint Admitting Physician: Nicholas Pierre MD Primary Care Provider: Orion Summers Chief Complaint: hypotension History of Present Illness Jaleel Rhodes is a 67 year old male presenting as a direct admission from oncology clinic with atrial fibrillation with rapid ventricular rate, hypotension. He has adenocarcinoma of the lung, with widely metastatic disease also metastatic to the brain. He has received palliative radiation, as well as chemotherapy. His last chemotherapy was September 12. This consisted of carboplatin/pemetrexed/pembrolizumab he has had significant weakness lately, and recently in oncology clinic on he was found to have low blood pressure, low oxygen level, and high heart rate. At that time his digoxin level was increased, metoprolol decreased to 25 mg a day, dexamethasone resumed at 4 mg twice daily, and oxygen initiated. His most recent CT of the head demonstrated no change in his metastatic disease on October 03. Restaging CTs, performed September 06 demonstrated mixed results. Patient denies any fevers, chest pain. Family reports occasional confusion. Certainly weak. Cough has not changed. Does not feel short of breath unless he exerts himself. No syncope. Has been taking his medication, including dexamethasone since his last visit. Has been using 2 L of oxygen since his previous oncology visit. No vomiting or diarrhea. He has been taking his Xarelto. Medications/Allergies Home Medications Medication Instructions Recorded Confirmed Last Taken Type multivitamin 1 tab PO DAILY 04/06/22 10/10/23 10/10/23 07:00 History metoprolol succinate 100 mg 100 mg PO BID #180 tabs 10/17/22 10/10/23 10/10/23 07:00 Rx tablet,extended release 24 hr metoprolol succinate 25 mg 25 mg PO BID #180 tabs 10/17/22 10/10/23 10/10/23 07:00 Rx tablet,extended release 24 hr digoxin 125 mcg (0.125 mg) tablet 125 mcg PO DAILY #90 tabs 03/26/23 10/10/23 10/10/23 07:00 Rx rivaroxaban 20 mg tablet (Xarelto) 20 mg PO DAILY #90 tabs 03/26/23 10/10/23 10/10/23 07:00 Rx lactulose 10 gram/15 mL oral 10 g (15 mL) PO BID PRN 05/23/23 10/10/23 10/10/23 07:00 Rx solution constipation #473 mL cholecalciferol (vitamin D3) 25 25 mcg PO DAILY 07/04/23 10/10/23 10/10/23 07:00 History mcg (1,000 unit) capsule lorazepam 1 mg tablet 1 mg PO Q4H PRN severe nausea #30 07/04/23 10/10/23 10/09/23 20:40 Rx tabs prochlorperazine maleate 10 mg 10 mg PO Q4H PRN nausea and 07/04/23 10/10/23 09/19/23 Rx tablet (Compazine) vomiting #30 tabs pantoprazole 40 mg tablet,delayed 40 mg PO DAILY #30 tabs 07/09/23 10/10/23 10/10/23 07:00 Rx release (Protonix) folic acid 1 mg tablet 1 mg PO DAILY #30 tabs 07/16/23 10/10/23 10/10/23 07:00 Rx ondansetron HCl 4 mg tablet 4 mg PO Q6H PRN nausea and 07/16/23 10/10/23 10/18/22 Rx vomiting #30 tabs lidocaine-prilocaine 2.5 %-2.5 % 1 applic topical .COMPLEX #30 grams 07/17/23 10/10/23 10/10/23 Rx topical cream docusate sodium 100 mg capsule 100 mg PO BID #60 caps 07/20/23 10/10/23 10/10/23 07:00 Rx (Colace) spironolactone 25 mg tablet 12.5 mg (1/2 x 25 mg) PO DAILY #90 08/10/23 10/10/23 10/10/23 07:00 Rx tabs tiotropium 2.5 mcg-olodaterol 2.5 2 puff inhalation DAILY #4 grams 09/06/23 10/10/23 10/10/23 07:00 Rx mcg/actuation mist for inhalation (Stiolto Respimat) sacubitril 49 mg-valsartan 51 mg 1 tab PO BID #180 tabs 09/10/23 10/10/23 10/10/23 07:00 Rx tablet (Entresto) miconazole nitrate 2 % topical 1 applic topical BID #28 grams 09/26/23 10/10/23 Unknown Rx cream (Antifungal (miconazole)) morphine 30 mg tablet,extended 30 mg PO Q12H 30 days #60 tabs 10/03/23 10/10/23 10/10/23 07:00 Rx release Portable oxygen concentrator and #1 ea 10/04/23 10/10/23 Unknown Rx supplies nystatin 100,000 unit/gram topical 1 applic topical TID #15 grams 10/04/23 10/10/23 10/08/23 Rx cream triamcinolone acetonide 0.1 % 1 applic topical TID #15 grams 10/04/23 10/10/23 Unknown Rx topical cream Allergies Allergy/AdvReac Type Severity Reaction Status Date / Time No Known Allergies Allergy Verified 10/10/23 10:17 PFSH Acute PFSH: Medical History (Updated 10/10/23 @ 13:27 by Nicholas Pierre MD) Emphysema lung Pulmonary hypertension Metastasis to bone Adenocarcinoma of right lung, stage 4 Atrial fibrillation CHF (congestive heart failure), NYHA class III Tobacco abuse Obesity Surgical History Port-A-Cath in place 07/11/23 Dr. Nunez Social History Smoking and tobacco/nicotine status: former use of tobacco/nicotine (0.5 ppd X >50 years) Quit status (tobacco/nicotine): has quit using Year quit tobacco: 2023 Former quit date comment: tobacco use 54 years Physical Exam Narrative: General exam is white male, no distress, on 2 L of oxygen. Blood pressure somewhat positional. Upon arising blood pressure noted by nursing to be transiently low with systolic less than 90 HEENT: Atraumatic normocephalic. Oropharynx clear. Neck is supple no lymphadenopathy thyromegaly Cardiovascular irregular, irregular with accelerated rate, port noted right chest Lungs clear, diminished breath sounds are noted bilaterally Abdomen is soft with positive bowel sounds. No obvious organomegaly exams deferred Extremities no sinus clubbing edema Skin no rash Neuro no obvious focal deficits Data Other Labs: CBC was done earlier today. White blood cell count 11.09, hemoglobin 11.3, platelet 341 Sodium 138, potassium 3.8, chloride 100, bicarb 26, BUN 11, creatinine 1.1, glucose 142, magnesium 1.8, LFTs normal, calcium 8.4, albumin 3.3, TSH 2.18, digoxin level 2.1 EKG ordered which I will interpret Urinalysis ordered Chest x-ray which I reviewed demonstrates port in no acute findings Blood cultures were drawn A&P Assessment and plan (1) Atrial fibrillation with rapid ventricular response: Patient presents with atrial fibrillation with rapid ventricular response His metoprolol recently got decreased secondary to lower blood pressures. His digoxin was recently increased to compensate for lower metoprolol dosing. However, digoxin level is now elevated. Discontinue digoxin He has known nonischemic cardiomyopathy with last EF around 45% in September At this point the most ideal medication to put him on would be amiodarone. 150 mg bolus, then a drip. Magnesium and TSH has been checked and normal No reason to repeat echocardiogram Depending upon blood pressure, could consider continuing low-dose metoprolol Continue anticoagulation with Xarelto (2) Hypoxia: Patient has been requiring 2 L of oxygen He has known COPD, and metastatic lung cancer He has no chest pain currently, has not become progressively hypoxic, and his saturation is 99% on 2 L currently. I do not suspect a PE considering these factors, and he is already on Xarelto which she reports compliance with. Chest x-ray has been done showing no infiltrate At this point wean oxygen as tolerated, provide budesonide twice daily, DuoNeb 4 times daily Although he has slight peripheral edema, I do not suspect a significant heart failure playing a role currently. (3) Hypotension: Patient was found to be hypotensive with position changes by the nurse According to family this has been going on for several weeks This may have to do with his underlying malignancy, poor performance, decreased p.o. intake. At this point continue his dexamethasone twice daily Initiate midodrine 5 mg 3 times daily and titrate as needed As he stabilizes, consider formal orthostatic blood pressure checks Blood cultures were obtained At this point secondary to lower blood pressures I will have to discontinue his Entresto, hold his Aldactone Check urinalysis, urine culture Plan Adenocarcinoma with brain metastasis. Currently receiving palliative chemotherapy. Currently poor performance characteristics. Will follow back up with oncology following this hospitalization Chronic cancer related pain. Will try to continue his morphine. COPD, see treatment under hypoxia History of CHF, currently appears compensated Other medical problems as listed under past medical history Allow natural , discussed with patient and family Xarelto will suffice for DVT prophylaxis along with SCDs Attestations Medical Necessity Statement*: Will need greater than 2 midnight stay for evaluation and treatment of A-fib with RVR, hypotension. Diagnoses Atrial fibrillation with rapid ventricular response I48.91 Hypoxia R09.02 Hypotension I95.9 Time Spent (min) 59
--- NOTE | 2023-10-10 11:30 | PC.NURSE ---
Pt arrives to ICu as direct admit. Pt alert and oriented. Dr Pierre at bedside. family at bedside.
--- NOTE | 2023-10-10 11:55 | XRR_ITS ---
PROCEDURE INFORMATION: Exam: XR Chest Exam date and time: 10/10/2023 12:44 PM Age: 67 years old Clinical indication: Condition or disease; Other: Hypotension; Patient HX: HX of lung , kidneys w/ bone mets cancer TECHNIQUE: Imaging protocol: Radiologic exam of the chest. Views: 1 view. COMPARISON: CR (CHEST, ) 10/03/2023 4:09 AM FINDINGS: Tubes, catheters and devices: Infusion port enters from the right and terminates in the SVC. Lungs: Slight bibasilar hypoventilatory changes. Pleural spaces: Unremarkable. No pleural effusion. No pneumothorax. Heart/Mediastinum: Unremarkable. No cardiomegaly. Bones/joints: Unremarkable. XR/XR chest 1V portable [id number] IMPRESSION: No acute findings.
[2023-10-10 12:14] LABS: Magnesium 1.8 mg/dL (1.7-2.3); Thyroid Stimulating Hormone 2.18 uIU/mL (0.27-4.20)
[2023-10-10] MEDS: amiodarone 150 MG/100 ML PREMIX 400 MG IV (12:18)
--- NOTE | 2023-10-10 13:19 | ECG_ITS ---
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 Measurements Intervals [place] Rate: 98 P: 0 MT: 0 QRS: 16 QRSD: 103 T: -50 QT: 342 QTc: 438 Interpretive Statements ATRIAL FIBRILLATION LOW QRS VOLTAGE IN PRECORDIAL LEADS [QRS DEFLECTION < 1.0 mV IN CHEST LEADS] NONSPECIFIC ST & T-WAVE ABNORMALITY Compared to ECG 10/03/2023 06:27:47 No significant changes Electronically Signed On 10-11-2023 14:52:26 DATA CONVERSION DEVELOPER by Gilberto Weathers M.D. [id number]
[2023-10-10] MEDS: ipratropium-albuterol 3 mL Neb INHALATION ×2 (14:46→19:54)
[2023-10-10] MEDS: midodrine 5 mg TABLET PO ×3 (15:36→21:35)
[2023-10-10 18:08] LABS: Bilirubin Urine Neg (Negative); Blood Urine 3+ (Negative); Glucose Urine UA Norm (Normal); Ketones Urine 1+ (Negative); Leukocyte Esterase Urine 2+ (Negative); Nitrate Urine Negative (Negative); Protein Urine 1+ (Negative); Specific Gravity, Urine 1.015 (1.005-1.030); Urine Appearance Cloudy (CLEAR); Urine Color Yellow (Yellow); Urobilinogen Urine Norm (Negative); pH Urine 5 (5-7)
[2023-10-10 18:14] LABS: Bacteria Urine 3+ /hpf; Mucus Urine 1+ /hpf; Squamous Epithelial Cell Urine 0-4 /hpf (0-5); WBC Urine 80-100 /hpf (0-5)
[2023-10-10 18:15] LABS: Add Urine Culture? Yes; Other Casts Urine WBC CAST 5-10 /lpf
[2023-10-10] MEDS: cefTRIAXone 1,000 MG in sodium chloride 0.9% (plus) 50 ML 100 MG IV (18:31)
[2023-10-10] MEDS: dexamethasone 4 mg Tablet PO (18:31)
[2023-10-10] MEDS: docusate sodium 100 mg Capsule PO (18:31)
--- NOTE | 2023-10-10 19:20 | PC.NURSE ---
Shift summary: Pt alert and mostly oriented. He does have minor periods of confusion. Family at bedside redirects him. He remains in A-fib. His heart rate was 110-120's upon his arrival to ICU, it has now decreased to 80-90's. It does jump back up with exertion (when he stands up to use urinal.) He continuously used his home O2 amount of 2lpm/NC. Per pt he stays cold, he wears a knit hat. He ate at least half of his meals. It took most of the afternoon for him to need to urinate, sample sent to lab. He stated it burned. His outut amount is 100-200ml at a time. He went twice. No complaints of pain noted.
[2023-10-10] MEDS: budesonide 0.5 mg/2 mL Neb INHALATION (19:54)
[2023-10-10] MEDS: morphine ER (12 HR) 30 mg tablet PO (21:34)
[2023-10-11] VITALS (54 sets, daily range): BP systolic 88–138; BP diastolic 46–87; PULSE 73–127; RESP 9–29; TEMP 36.3–36.9; O2SAT 82–100
[2023-10-11 05:19] LABS: Basophils % 0.3 %; Eosinophils # 0.1 10^3/uL (0.0-0.8); Eosinophils % 0.8 %; Hematocrit 30.5 % (37-53); Lymphocytes # 0.8 10^3/uL (0.8-4.8); Lymphocytes % 9.8 %; Mean Corpuscular HGB Conc 32.1 g/dL (30-55); Mean Corpuscular Hemoglobin 30.9 pg (27-33); Mean Corpuscular Volume 96.2 fl (82-101); Mean Platelet Volume 9.4 fL (7.4-10.4); Monocytes # 0.8 10^3/uL (0.2-0.9); Monocytes % 9.7 %; Neutrophils % 78.4 %; Nucleated Red Blood Cells % 0 %; Platelet Count 265 10^3/cmm (157-399); Red Blood Count 3.17 10^6/uL (3.85-5.65); Red Cell Distribution Width 19.4 % (12.1-15.1); White Blood Count 7.77 10^3/uL (3.29-11.43)
[2023-10-11 05:51] LABS: Alanine Aminotransferase 14 U/L (0-41); Albumin Level 3.1 g/dL (3.5-5.2); Alkaline Phosphatase 76 U/L (40-130); Aspartate Amino Transferase 15 U/L (0-40); Blood Urea Nitrogen 12 mg/dL (8-23); Calcium 7.9 mg/dL (8.5-10.5); Carbon Dioxide 28 mmol/L (22-29); Chloride 102 mmol/L (98-107); Creatinine Clr Calc Pharmacy 87.6747; Globulin 2.2 g/dL (1.3-4.6); Glomerular Filtration Rate 74.1 mL/min (90-130); Glucose 133 mg/dL (65-115); Osmolality Calculated 298 mOsm/kg (285-295); Sodium 143 mmol/L (136-145); Total Bilirubin 0.3 mg/dL (0.15-1.2); Total Protein 5.3 g/dL (6.6-8.7)
[2023-10-11 05:59] LABS: Digoxin 1.3 ng/mL (0.6-1.2)
[2023-10-11] MEDS: ipratropium-albuterol 3 mL Neb INHALATION ×3 (08:04→20:59)
[2023-10-11] MEDS: budesonide 0.5 mg/2 mL Neb INHALATION ×2 (08:04→20:59)
--- NOTE | 2023-10-11 09:17 | P.PN_ITS ---
Subjective 2 Subjective: Jaleel reports he feels a little bit better. Not short of breath. Not dizzy. Family is not present at bedside currently. Medications: Reviewed: Yes Vitals/I&O/Wt Last Vital Signs Temp 97.4 F L 10/11/23 04:00 Pulse 92 10/11/23 08:05 Resp 18 10/11/23 08:05 BP 115/62 10/11/23 04:00 Pulse Ox 97 10/11/23 08:05 O2 Del Method Nasal Cannula 10/11/23 08:05 O2 Flow Rate 2 10/11/23 08:05 10/10/23 10/11/23 10/11/23 22:59 06:59 14:59 Intake Total 500 / 750 199.207 / 199.207 Output Total 620 / 620 500 / 1120 Balance -120 / 130 -500 / -370 199.207 / 199.207 Weight last 48 hrs Weight 99.881 kg Weight 100.97 kg Weight 98.974 kg Physical Exam 2 Narrative: General exam is white male, no distress Neck is supple no lymphadenopathy thyromegaly Cardiovascular irregular, irregular with accelerated rate, port noted right chest Lungs clear, diminished breath sounds are noted bilaterally Abdomen is soft with positive bowel sounds. No obvious organomegaly Extremities no sinus clubbing edema Data 10/11/23 03:58 10/11/23 03:58 Micro: Microbiology 10/10/23 12:52 Blood Culture - Preliminary Blood SPECIMEN COLLECTED 10/10/23 12:47 Blood Culture - Preliminary Blood SPECIMEN COLLECTED A&P Assessment and plan (1) Atrial fibrillation with rapid ventricular response: Patient presents with atrial fibrillation with rapid ventricular response His metoprolol recently got decreased secondary to lower blood pressures. His digoxin was recently increased to compensate for lower metoprolol dosing. However, digoxin level is now elevated. Discontinue digoxin He has known nonischemic cardiomyopathy with last EF around 45% in September Continue amiodarone drip. Changed to p.o. later this afternoon. Magnesium and TSH has been checked and normal No reason to repeat echocardiogram Resume low-dose metoprolol Continue anticoagulation with Xarelto (2) Hypoxia: Patient has been requiring 2 L of oxygen He has known COPD, and metastatic lung cancer He has no chest pain currently, has not become progressively hypoxic, and his saturation is 99% on 2 L currently. I do not suspect a PE considering these factors, and he is already on Xarelto which she reports compliance with. Chest x-ray has been done showing no infiltrate At this point wean oxygen as tolerated, provide budesonide twice daily, DuoNeb 4 times daily Although he has slight peripheral edema, I do not suspect a significant heart failure playing a role currently. (3) Hypotension: Patient was found to be hypotensive with position changes by the nurse According to family this has been going on for several weeks This may have to do with his underlying malignancy, poor performance, decreased p.o. intake. At this point continue his dexamethasone twice daily Continue midodrine 5 mg 3 times daily and titrate as needed As he stabilizes, consider formal orthostatic blood pressure checks Blood cultures were obtained At this point secondary to lower blood pressures I will have to discontinue his Entresto, Aldactone (4) UTI (urinary tract infection): Rocephin initiated yesterday Await urine culture Consider Flomax initiation as he has some history of urinary retention. However, will want to make sure he is not orthostatic prior to initiating this. CBC, BMP in the morning Plan Adenocarcinoma lung with brain metastasis. Currently receiving palliative chemotherapy. Currently poor performance characteristics. Will follow back up with oncology following this hospitalization Chronic cancer related pain. Will try to continue his morphine. COPD, see treatment under hypoxia History of CHF, currently appears compensated Other medical problems as listed under past medical history Allow natural , discussed with patient and family Xarelto will suffice for DVT prophylaxis along with SCDs Still requiring IV amiodarone, which requires close monitoring of rhythm continually on bedside telemetry requiring higher level of care. Attestations 2 Medical Necessity Statement*: Needs continued hospital stay for IV antibiotics secondary UTI, adjustment of medication for A-fib with eventual conversion to oral amiodarone, reinitiation of metoprolol, etc. Diagnoses Atrial fibrillation with rapid ventricular response I48.91 Hypoxia R09.02 Hypotension I95.9 UTI (urinary tract infection) N39.0 Time Spent (min) 24
[2023-10-11] MEDS: dexamethasone 4 mg Tablet PO ×2 (09:34→17:45)
[2023-10-11] MEDS: docusate sodium 100 mg Capsule PO ×2 (09:34→17:45)
[2023-10-11] MEDS: folic acid 1 mg Tablet PO (09:34)
[2023-10-11] MEDS: metoprolol tartrate 25 mg Tablet 12.5 MG PO ×2 (09:35→17:45)
[2023-10-11] MEDS: midodrine 5 mg TABLET PO ×3 (09:36→21:13)
[2023-10-11] MEDS: morphine ER (12 HR) 30 mg tablet PO ×2 (09:37→21:12)
[2023-10-11] MEDS: rivaroxaban 10 mg Tablet 20 MG PO (09:37)
[2023-10-11] MEDS: pantoprazole 40 mg SDV IVP (09:39)
--- NOTE | 2023-10-11 14:49 | PC.NURSE ---
This nurse assumed care of pt at 1440. Pt transferred from ICU to CSU via wheelchair by ARMEN Spears.
--- NOTE | 2023-10-11 15:01 | PC.NURSE ---
Allergies No Known Allergies Allergy (Verified 10/10/23 10:17) Clinical Data Height 6 ft 2 in Weight 220 lb 3.2 oz Advance Directives No Ambulation Ability Independent Oxygen Delivery Method Nasal Cannula Oxygen Flow Rate 2 Precautions [facility] [facility] Last Name: Carmelo Status: First Name: Jaleel Priority: Middle: Condition: Birthdate: 1955 Arrival Date/Time: Age at Arrival: Arrival Mode: Sex: M Triaged At: Language: Serbian Time Seen by Provider: Stated Complaint: Chief Complaint: ED Location: Area: Station: Group: ED Provider: ED Midlevel Provider: ED Nurse: Primary Care Provider: Orion Summers Hx (Last Updated 10/10/23 @ 11:18 by Nicholas Pierre MD) Adenocarcinoma of right lung, stage 4 (Medical) C34.91 Atrial fibrillation (Medical) I48.91 CHF (congestive heart failure), NYHA class III (Medical) I50.9 Emphysema lung (Medical) J43.9 Metastasis to bone (Medical) C79.51 Obesity (Medical) E66.9 Pulmonary hypertension (Medical) I27.20 Tobacco abuse (Medical) Z72.0 Albuterol/Ipratropium (Ipratropium-Albuterol 3 Ml Neb) 3 ml INHALATION Q6H.RESP TYLER Last Admin: 10/11/23 13:36 Dose: 3 ml Documented By: Admin: 10/11/23 08:04 Dose: 3 ml Documented By: Admin: 10/11/23 03:53 Dose: Not Given Documented By: JDB Non-Admin Reason: Not Indicated Admin: 10/10/23 19:54 Dose: 3 ml Documented By: Admin: 10/10/23 14:46 Dose: 3 ml Documented By: PGD Amiodarone HCl (Amiodarone 200 Mg Tablet) 400 mg PO BID TYLER Budesonide (Budesonide 0.5 Mg/2 Ml Neb) 0.5 mg INHALATION BID.RESPIRATORY TYLER Last Admin: 10/11/23 08:04 Dose: 0.5 mg Documented By: Admin: 10/10/23 19:54 Dose: 0.5 mg Documented By: JDB Dexamethasone (Dexamethasone 4 Mg Tablet) 4 mg PO BID TYLER Last Admin: 10/11/23 09:34 Dose: 4 mg Documented By: Admin: 10/10/23 18:31 Dose: 4 mg Documented By: KENNY Docusate Sodium (Docusate Sodium 100 Mg Capsule) 100 mg PO BID [facility] Last Admin: 10/11/23 09:34 Dose: 100 mg Documented By: Admin: 10/10/23 18:31 Dose: 100 mg Documented By: KENNY Folic Acid (Folic Acid 1 Mg Tablet) 1 mg PO DAILY [facility] Last Admin: 10/11/23 09:34 Dose: 1 mg Documented By: Amiodarone HCl/Dextrose (Nexterone) 360 mg in 200 mls @ 0 mls/hr IV .Q0M [facility]; Protocol Last Admin: 10/11/23 07:25 Dose: 0.5 mg/min, 16.67 mls/hr Documented By: PF Infusion/Titration Document 10/11/23 07:25 PF (Rec: 10/11/23 07:25 PF [id number]) Intake Cumulative Intake (Rx) 399.207 Container Volume 200 Waste Amount 0 Dosing Dose Rate 0.5 Infusion Rate 16.67 Cumulative Dose 718.5726 Increase/Decrease Started/Running Elapsed Time Elapsed Time (minutes) 17h 58m Titration: 10/11/23 07:25 Dose: Infused Documented By: PF Infusion/Titration Document 10/11/23 07:25 PF (Rec: 10/11/23 07:25 PF [id number]) Intake Intake 199.207 Cumulative Intake (bag) 199.207 Cumulative Intake (Rx) 399.207 Container Volume 0 Waste Amount 0.793 Dosing Dose Rate 0.5 Infusion Rate 16.67 Cumulative Dose 718.5726 Increase/Decrease Infused Elapsed Time Elapsed Time (minutes) 17h 58m Admin: 10/10/23 19:28 Dose: 0.5 mg/min, 16.67 mls/hr Documented By: PF Infusion/Titration Document 10/10/23 19:28 PF (Rec: 10/10/23 19:28 PF [id number]) Intake Cumulative Intake (Rx) 200 Container Volume 200 Waste Amount 0 Dosing Dose Rate 0.5 Infusion Rate 16.67 Cumulative Dose 360 Increase/Decrease Started/Decreased Elapsed Time Elapsed Time (minutes) 6h 1m Supplies Used Document 10/10/23 19:28 PF (Rec: 10/10/23 19:28 PF [id number]) NEW Infusion Supplies Used Primary Tubing Used 1 Titration: 10/10/23 18:46 Dose: Infused Documented By: PF Infusion/Titration Document 10/10/23 18:46 PF (Rec: 10/10/23 19:28 PF [id number]) Intake Intake 200 Cumulative Intake (bag) 200 Cumulative Intake (Rx) 200 Container Volume 0 Waste Amount 0 Dosing Dose Rate 1 Infusion Rate 33.33 Cumulative Dose 360 Increase/Decrease Infused Elapsed Time Elapsed Time (minutes) 6h 1m Admin: 10/10/23 12:45 Dose: 1 mg/min, 33.33 mls/hr Documented By: JDF Infusion/Titration Document 10/10/23 12:45 JDF (Rec: 10/10/23 12:45 JDF [id number]) Intake Container Volume 200 Waste Amount 0 Dosing Dose Rate 1 Infusion Rate 33.33 Increase/Decrease Started Elapsed Time Elapsed Time (minutes) 0m Ceftriaxone Sodium 1,000 mg/ (Sodium Chloride) 50 mls @ 100 mls/hr IV Q24H TYL[facility]; Protocol Last Infusion: 10/10/23 19:10 Dose: Infused Documented By: JDF Infusion/Titration Document 10/10/23 19:10 JDF (Rec: 10/11/23 13:29 JDF [id number]) Intake Intake 50 Cumulative Intake (bag) 50 Cumulative Intake (Rx) 50 Container Volume 0 Waste Amount 0 Dosing Infusion Rate 0 Cumulative Dose 1000 Increase/Decrease Infused Elapsed Time Elapsed Time (minutes) 39m Admin: 10/10/23 18:31 Dose: 100 mls/hr Documented By: JDF Infusion/Titration Document 10/10/23 18:31 JDF (Rec: 10/10/23 18:31 JDF [id number]) Intake Container Volume 50 Waste Amount 0 Dosing Infusion Rate 100 Increase/Decrease Started Elapsed Time Elapsed Time (minutes) 0m Supplies Used Document 10/10/23 18:31 JDF (Rec: 10/10/23 18:31 JDF [id number]) NEW Infusion Supplies Used Number of Saline Flushes Used 1 Primary Tubing Used 1 Metoprolol Tartrate (Metoprolol Tartrate 25 Mg Tablet) 12.5 mg PO BID [facility] Last Admin: 10/11/23 09:35 Dose: 12.5 mg Documented By: Midodrine (Midodrine 5 Mg Tablet) 5 mg PO TID [facility] Last Admin: 10/11/23 09:36 Dose: 5 mg Documented By: Admin: 10/10/23 21:35 Dose: 5 mg Documented By: Admin: 10/10/23 18:45 Dose: 5 mg Documented By: Admin: 10/10/23 15:36 Dose: 5 mg Documented By: KENNY Morphine Sulfate (Morphine Er (12 Hr) 30 Mg Tablet) 30 mg PO Q12H [facility] Last Admin: 10/11/23 09:37 Dose: 30 mg Documented By: DEBBIE Pain with Respiratory Document 10/11/23 09:37 (Rec: 10/11/23 09:37 [id number]) Pain Assessment Reason Not Required Scheduled Medication Admin: 10/10/23 21:34 Dose: 30 mg Documented By: GREG LEWIS Pain with Respiratory Document 10/10/23 21:34 PF (Rec: 10/10/23 21:34 PF [id number]) Pain Scale Pain Intensity 3 Scale Used Costello-Brown (Faces) Location Pain Location generalized Management Techniques Pain Alleviating Factors Medication,Changing Position Respiratory Respiratory Rate (12-18 breaths/min) 24 H Respiratory Depth Normal Respiratory Effort Spontaneous,Non-Labored Respiratory Pattern Normal Pulse Oximetry (90-100 %) 92 Ondansetron HCl (Ondansetron 2 Mg/Ml Sdv 2 Ml) 4 mg IVP Q6H PRN PRN Reason: NAUSEA AND VOMITING Pantoprazole Sodium (Pantoprazole 40 Mg Sdv) 40 mg IVP DAILY [facility] Last Admin: 10/11/23 09:39 Dose: 40 mg Documented By: DEBBIE IV Push Document 10/11/23 09:39 (Rec: 10/11/23 09:39 [id number]) Push Drug Pushed Over 3 Rivaroxaban (Rivaroxaban 10 Mg Tablet) 20 mg PO DAILY [facility] Last Admin: 10/11/23 09:37 Dose: 20 mg Documented By: Discontinued Medications Amiodarone HCl (Amiodarone 50 Mg/Ml Sdv 3 Ml) 150 mg IVP ONCE ONE Stop: 10/10/23 11:56 Last Admin: 10/10/23 12:19 Dose: Not Given Documented By: KENNY Non-Admin Reason: See Other Order For Same Medication Amiodarone HCl/Dextrose (Nexterone) 150 mg in 100 mls @ 400 mls/hr IV ONCE ONE Stop: 10/10/23 12:29 Last Infusion: 10/10/23 12:44 Dose: Infused Documented By: KENNY Infusion/Titration Document 10/10/23 12:44 KENNY (Rec: 10/10/23 12:44 J [id number]) Intake Intake 100 Cumulative Intake (bag) 100 Cumulative Intake (Rx) 100 Container Volume 0 Waste Amount 0 Dosing Infusion Rate 0 Cumulative Dose 150 Increase/Decrease Infused Elapsed Time Elapsed Time (minutes) 26m Admin: 10/10/23 12:18 Dose: 400 mls/hr Documented By: KENNY Infusion/Titration Document 10/10/23 12:18 KENNY (Rec: 10/10/23 12:19 JBRYANT [id number]) Intake Container Volume 100 Waste Amount 0 Dosing Infusion Rate 400 Increase/Decrease Started Elapsed Time Elapsed Time (minutes) 0m Supplies Used Document 10/10/23 12:18 KENNY (Rec: 10/10/23 12:19 KENNY [id number]) NEW Infusion Supplies Used Number of Saline Flushes Used 2 Taxol Tubing Used 1 Morphine Sulfate (Morphine Er (12 Hr) 30 Mg Tablet) 30 mg PO Q12H [facility] Notes 10/11/23 14:49 Nurse Note by Therese Carlton This nurse assumed care of pt at 1440. Pt transferred from ICU to CSU via wheelchair by ARMEN Spears. Initialized on 10/11/23 14:49 - END OF NOTE Orders 10/11/23 09:00 folic acid 1 mg PO DAILY metoprolol tartrate [Lopressor] 12.5 mg PO BID pantoprazole [Protonix] 40 mg IVP DAILY rivaroxaban [Xarelto] 20 mg PO DAILY 10/11/23 09:22 Vital Signs, Orthostatic BID 10/11/23 09:24 Transfer Inhouse Order 10/11/23 18:00 amiodarone [Cordarone] 400 mg PO BID 10/12/23 04:00 BMP [Basic Metabolic Panel] AM LABS CBC Auto Diff [Complete Blood Count w/Auto] AM LABS Social Hx (Last Reviewed 10/10/23 @ 11:18 by Nicholas Pierre MD) Tobacco/Nicotine Use: Smoking and tobacco status: former smoker Smoking and tobacco status comment: 0.5 ppd X >50 years Quit status (tobacco): has quit using tobacco Former Quit Date Details: Year quit tobacco: 2023 Former quit date comment: tobacco use 54 years Surgical Hx (Last Reviewed 10/10/23 @ 11:18 by Nicholas Pierre MD) Port-A-Cath in place (Surgical) Z95.828 07/11/23 Dr. Nunez Intake & Output 10/11/23 10/11/23 10/11/23 10:59 14:59 18:59 Intake: IV 199.207 / 199.207 amiodarone 360 mg In 200 ml @ 199.207 / 199.207 Per Protocol IV .Q0M [facility] Rx#: [id number] Oral 480 / 480 120 / 600 Interventions Activity and Turn Assessment Start: 10/10/23 11:33 Freq: Q2HR Status: Active Protocol: Document 10/10/23 12:00 JDF (Rec: 10/10/23 19:53 [facility] [id number]) Activity/Position Patient Position Supine Level of [place] Standby Assistance,Minimum Assistance,1 Person Assist Skin Measures Friction/Shear Managment, Repositioned,Special Bed, Special Mattress Patient Activity Chair Activity Ability Standby Assistance,Minimum Assistance,1 Person Assist Document 10/10/23 14:00 JDF (Rec: 10/10/23 19:53 [facility] [id number]) Activity/Position Refused Turn and Reposition Yes Patient Position Supine Level of [place] Standby Assistance,Minimum Assistance,1 Person Assist Skin Measures Friction/Shear Managment, Repositioned,Special Bed, Special Mattress Patient Activity Chair Activity Ability Standby Assistance,Minimum Assistance,1 Person Assist Document 10/10/23 16:00 JDF (Rec: 10/10/23 19:53 J [id number]) Activity/Position Patient Position Supine Level of [place] Standby Assistance,Minimum Assistance,1 Person Assist Skin Measures Friction/Shear Managment, Repositioned,Special Bed, Special Mattress Patient Activity Chair Activity Ability Standby Assistance,Minimum Assistance,1 Person Assist Document 10/10/23 18:00 JDF (Rec: 10/10/23 19:53 [facility] [id number]) Activity/Position Patient Position Supine Level of [place] Standby Assistance,Minimum Assistance,1 Person Assist Skin Measures Friction/Shear Managment, Repositioned,Special Bed, Special Mattress Patient Activity Chair Activity Ability Standby Assistance,Minimum Assistance,1 Person Assist Document 10/10/23 20:00 PF (Rec: 10/10/23 22:14 PF [id number]) Activity/Position Turn and Reposition At Patient's Request Patient Position Supine Level of [place] 2 Person Assist Skin Measures Lift Sheet Used,Repositioned Document 10/10/23 22:00 PF (Rec: 10/10/23 22:46 PF [id number]) Activity/Position Patient Position Right Side Lying Level of [place] 2 Person Assist Skin Measures Lift Sheet Used,Pillows Placed ,Repositioned Document 10/11/23 00:00 PF (Rec: 10/11/23 01:50 PF [id number]) Activity/Position Turn and Reposition At Patient's Request Patient Position Left Side Lying Level of [place] 2 Person Assist Document 10/11/23 02:00 PF (Rec: 10/11/23 02:23 PF [id number]) Activity/Position Patient Position Right Side Lying Level of [place] 1 Person Assist Skin Measures Pillows Placed,Repositioned Document 10/11/23 04:00 PF (Rec: 10/11/23 06:48 PF [id number]) Activity/Position Turn and Reposition At Patient's Request Document 10/11/23 06:00 PF (Rec: 10/11/23 06:51 PF [id number]) Activity/Position Level of [place] 2 Person Assist Skin Measures Lift Sheet Used,Repositioned Document 10/11/23 08:00 (Rec: 10/11/23 10:51 [id number]) Activity/Position Turn and Reposition Turned Self Level of [place] Independent Patient Activity Ambulates Activity Ability Minimum Assistance,1 Person Assist Tolerates Activity Fair Document 10/11/23 10:00 (Rec: 10/11/23 10:57 [id number]) Activity/Position Turn and Reposition Turned Self Level of [place] Independent Patient Activity Chair Activity Ability Minimum Assistance,1 Person Assist Tolerates Activity Fair Document 10/11/23 12:00 (Rec: 10/11/23 13:07 [id number]) Activity/Position Turn and Reposition Turned Self Level of [place] Minimum Assistance,1 Person Assist Patient Activity Chair Activity Ability Minimum Assistance,1 Person Assist Tolerates Activity Fair Admission Assessment Start: 10/10/23 11:33 Freq: Q1MX1,Q6H Status: Complete Protocol: Document 10/10/23 11:33 JDF (Rec: 10/10/23 19:50 JDF [id number]) General Questions Date of Arrival on Unit 10/10/23 Time of Arrival on Unit 11:30 Arrived From Direct Admit Mode of Arrival Wheelchair Patient Stated Complaint dizzy, high heart beat Onset of Chief Complaint today History Provided By Patient,Family Member,Medical Record Patient Hospitalized in Last 30 Days No Recent Travel No Recent Travel in [place] Within the Last 8 No Weeks Recent Out of Country Travel Within the No Last 8 Weeks Clinical Trial Participant No Deep Vein Thrombosis/Pulmonary Embolism No Present on Admission Advance Directives Advance Directives No Living Will No Medical Power of Sessions Clerk No Risk Assessment Denture Type Full- Upper & Lower Do You Have Trouble Feeding Yourself? No Do You Use Any Adaptive Feeding No Equipment at Home Have You Lost Weight Recently Without No Trying? Have You Been Eating Poorly Because Of A No Decreased Appetite Malnutrition Screening Tool Score 0 Cultural, Caodaism or Ethnic Practices No Affecting Your Diet Services Prior to Admission None Do You Have Someone to Help You at Home Yes Does This Person Live With You Yes Are They Available & Capable of Caring Yes For You S Score 0 Tuberculosis Symptoms None TB Risk Factors Age >65 Was Physician Notified of Positive Risk Not Applicable Factors History or Current Diagnosis of: None Diarrhea With Recent Antibiotic Therapy No Readmitted with Possible Surgical Site No Infection Are You Experiencing a Fever, Persistent No Cough or Shortness In Past 14 Days, Have You Been Exposed No to Anyone That Has Be Has Pt Tested Positive at Another No Facility in Past 14 Days Concerns & Reporting Would You Like to See Someone From Yes Pastoral Care Any Caodaism/Cultural Practices No Affecting Hospitalization Communication Assessment Comprehension Ability No Impairment Ability to Follow Directions Good Able to Read Yes Motivation Level Asks Questions Learning Preferences Discussion Knowledge of Current Illness Good Self-Rating of Health Fair What Would You Like to Know About Your just tell me Illness/Condition Safety Assessment Precautions/Isolation [place] ADL Assessment Changes in Patient's Self Care Ability No in Past Week Patient's Current Self Care Ability Independent Ambulation Ability Independent Needed Equipment for Patient Transport Cane Assistive Devices Straight Cane Assistive Device With Patient Yes Sleeping Aids None Home Oxygen Therapy Yes Home Oxygen Amount 2 liters Aggression Rating Tool Start: 10/10/23 11:33 Freq: Q1MX1,QSHIFT Status: Active Protocol: Document 10/10/23 11:33 JDF (Rec: 10/10/23 13:53 JDF [id number]) Aggression Rating and Interventions Behavior Level 0 Document 10/10/23 20:00 PF (Rec: 10/10/23 22:14 PF [id number]) Aggression Rating and Interventions Behavior Level 0 Document 10/11/23 08:00 (Rec: 10/11/23 10:51 [id number]) Aggression Rating and Interventions Behavior Level 0 Bedside Report Start: 10/10/23 11:33 Freq: 07,19 Status: Active Protocol: Document 10/10/23 18:50 JDF (Rec: 10/10/23 18:50 JDF [id number]) Co-signed By Cristiane Johnson RN Bedside Report Communication Type Shift Handoff Report Given To ARMEN Baptiste Patient Identification Band On Yes Patient Allergy Band On Yes Information Reported Status Update,Lab/Diagnostic Study,Pain,Patient Request, Problem,Activity,Diet, Medications Given,Vital Signs, Cardiac Monitoring,Continuous Pulse Ox Monitoring Orders New Orders Received Patient Participation Updated on Changes to Plan of Care,Had No Questions Document 10/11/23 07:00 PF (Rec: 10/11/23 07:32 PF [id number]) Co-signed By Tory Thompson RN Bedside Report Communication Type Shift Handoff Report Given To Tory Patient Identification Band On Yes Patient Allergy Band On Yes Information Reported Lab/Diagnostic Study,Pain, Patient Request,Diet,Intake & Output,Physical Assessment Conor Scale Assessment Start: 10/10/23 11:33 Freq: Q1MX1,DAILY Status: Active Protocol: CONOR Document 10/10/23 11:33 JDF (Rec: 10/10/23 19:51 JDF [id number]) Conor Scale - For Predicting Pressure Sore Risk Sensory Perception Slightly Limited Sensory Perception Interventions Teach Changing Positions,Draw Sheet to Turn/Lift Moisture Occasionally Moist Moisture Interventions Routine Skin Care PRN Activity Walks Occasionally Activity Interventions Encourage Activity PRN Mobililty Slightly Limited Mobility Interventions Routine Skin Care Nutrition Probably Inadequate Nutrition Interventions Nutrition Assistance PRN Friction and Shear Potential Problem Friction and Shear Provide Routine Skin Care Total Score 16 Document 10/11/23 10:00 (Rec: 10/11/23 10:57 [id number]) Conor Scale - For Predicting Pressure Sore Risk Sensory Perception No Impairment Sensory Perception Interventions Teach Changing Positions,Draw Sheet to Turn/Lift Moisture Rarely Moist Moisture Interventions Absorbent Briefs,Routine Skin Care PRN,Teach to Request Care PRN Activity Walks Occasionally Activity Interventions Encourage Activity PRN,Teach Position Changes Mobililty Slightly Limited Mobility Interventions Draw Sheet Used to Turn and Lift,Reposition Every 2 Hours, Teach Position Changes,Routine Skin Care Nutrition Adequate Nutrition Interventions Assist with Meals PRN,Assist with Oral Care,Encourage Meals ,Nutrition Assistance PRN, Offer Supplements,Provide Tray Set Up Friction and Shear Potential Problem Friction and Shear Apply/Use Socks,Draw Sheet to Turn/Lift,Provide Routine Skin Care Total Score 19 Cardiac Monitoring Start: 10/10/23 11:09 Freq: Q1MX1,TID Status: Active Protocol: Document 10/10/23 11:35 JDF (Rec: 10/10/23 13:53 JDF [id number]) Cardiac Monitoring (Telemetry) VA Interval (0.12-0.20 seconds) 0 L QT Interval (0.30-0.40 seconds) 0 L QRS Interval (0.06-0.10 seconds) 0.12 H Cardiac Rhythm A fib Pulse Rate (60-100 beats/min) 111 H Telemetry Box Number 2 Change From Last Assessment No Strip Posted Yes Document 10/10/23 15:00 JDF (Rec: 10/10/23 19:47 JDF [id number]) Cardiac Monitoring (Telemetry) VA Interval (0.12-0.20 seconds) 0 L QT Interval (0.30-0.40 seconds) 0 L QRS Interval (0.06-0.10 seconds) 0.12 H Cardiac Rhythm A fib Pulse Rate (60-100 beats/min) 89 Telemetry Box Number 2 Change From Last Assessment No Strip Posted Yes Document 10/10/23 22:00 PF (Rec: 10/10/23 23:13 PF [id number]) Cardiac Monitoring (Telemetry) VA Interval (0.12-0.20 seconds) 0 L QT Interval (0.30-0.40 seconds) 0.30 QRS Interval (0.06-0.10 seconds) 0.1 Cardiac Rhythm atrial fib Pulse Rate (60-100 beats/min) 105 H Telemetry Box Number 2 Change From Last Assessment No Strip Posted Yes Document 10/11/23 06:00 PF (Rec: 10/11/23 06:52 PF [id number]) Cardiac Monitoring (Telemetry) VA Interval (0.12-0.20 seconds) 0 L QT Interval (0.30-0.40 seconds) 0.32 QRS Interval (0.06-0.10 seconds) 0.08 Cardiac Rhythm a. fib Pulse Rate (60-100 beats/min) 83 Telemetry Box Number 2 Change From Last Assessment No Strip Posted Yes Document 10/11/23 14:00 JDF (Rec: 10/11/23 14:10 JDF [id number]) Cardiac Monitoring (Telemetry) VA Interval (0.12-0.20 seconds) 0 L QT Interval (0.30-0.40 seconds) 0 L QRS Interval (0.06-0.10 seconds) 0.12 H Cardiac Rhythm AFib Pulse Rate (60-100 beats/min) 118 H Telemetry Box Number 2 Change From Last Assessment No Strip Posted Yes Charge List Start: 10/10/23 11:33 Freq: 05,17 Status: Active Protocol: Document 10/10/23 17:00 JDF (Rec: 10/10/23 20:06 J [id number]) Charge List Miscellaneous Charges Pulse Ox Adult-Dispos Document 10/11/23 05:00 PF (Rec: 10/11/23 06:49 PF [id number]) Charge List Any New Charges This Shift No Collect Specimen: Urinalysis and Microscopic Start: 10/10/23 16:00 Freq: ONCE Status: Complete Protocol: Document 10/10/23 16:00 JDF (Rec: 10/10/23 17:25 J [id number]) Collect Specimen: Urine Culture Start: 10/10/23 16:00 Urine,Voided Status: Complete Freq: ONCE Protocol: Document 10/10/23 16:00 JDF (Rec: 10/10/23 17:25 J [id number]) Critical Care/IC Flowsheet Start: 10/10/23 11:33 Freq: Q2HR Status: Active Protocol: Document 10/10/23 12:00 JDF (Rec: 10/10/23 19:54 J [id number]) CC/IC Flowsheet Change From Previous Assessment No Sepsis Infection Criteria Present None Document 10/10/23 14:00 JDF (Rec: 10/10/23 19:54 J [id number]) CC/IC Flowsheet Change From Previous Assessment No Sepsis Infection Criteria Present None Document 10/10/23 16:00 JDF (Rec: 10/10/23 19:54 J [id number]) CC/IC Flowsheet Change From Previous Assessment No Sepsis Infection Criteria Present None Document 10/10/23 18:00 JDF (Rec: 10/10/23 19:54 J [id number]) CC/IC Flowsheet Change From Previous Assessment Yes Sepsis Infection Criteria Present Documented Infection Document 10/10/23 20:00 PF (Rec: 10/10/23 22:15 PF [id number]) CC/IC Flowsheet Sepsis Infection Criteria Present Documented Infection Eye Opening Spontaneous Verbal Response Orientated Motor Response Obey Commands Felicia Coma Scale Total 15 Bilateral Pupil [place] PERRLA [place] Sedation Scale 2 Facial Symmetry Symmetrical Speech Pattern Appropriate,Clear Apical Rhythm Irregular Bilateral Dorsalis Pedis Pulse Strength 2+ Slightly Diminished Bilateral Radial Pulse Strength 3+ Normal Skin Temperature Warm Skin Moisture Dry Skin Color Normal Skin Turgor Loose Anterior Throughout Breath Sounds Clear,Diminished Respiratory Depth Normal Respiratory Effort Spontaneous,Non-Labored Cough Description None Abdomen Description Soft,Round Bowel Sounds RLQ: Hypoactive RUQ: Hypoactive LUQ: Hypoactive LLQ: Hypoactive Voiding Method Urinal Genitourinary Symptoms Urinary Urgency Urine Characteristics Cloudy Urine color Dark Yellow Urine Odor Strong Document 10/10/23 22:00 PF (Rec: 10/10/23 22:47 PF [id number]) CC/IC Flowsheet Change From Previous Assessment No Document 10/11/23 00:00 PF (Rec: 10/11/23 01:50 PF [id number]) CC/IC Flowsheet Change From Previous Assessment No Document 10/11/23 02:00 PF (Rec: 10/11/23 02:23 PF [id number]) CC/IC Flowsheet Change From Previous Assessment No Document 10/11/23 04:00 PF (Rec: 10/11/23 06:48 PF [id number]) CC/IC Flowsheet Change From Previous Assessment No Document 10/11/23 06:00 PF (Rec: 10/11/23 06:52 PF [id number]) CC/IC Flowsheet Change From Previous Assessment No Document 10/11/23 08:00 (Rec: 10/11/23 10:45 [id number]) CC/IC Flowsheet Sepsis Infection Criteria Present Documented Infection Eye Opening Spontaneous Verbal Response Orientated Motor Response Obey Commands Felicia Coma Scale Total 15 Bilateral Pupil Reaction Brisk Pupil Size (mm) 2 Pupil [place] PERRL Facial Symmetry Symmetrical Speech Pattern Appropriate,Clear Apical Rhythm Irregular Heart Sounds S1 & S2 Cardiac Rhythm afib Bilateral Dorsalis Pedis Pulse Strength 2+ Slightly Diminished Pulse Assessment Method Palpation Pulse Rhythm Irregular Bilateral Radial Pulse Strength 3+ Normal Pulse Assessment Method Palpation Pulse Rhythm Irregular Jugular Vein Distention Flat Capillary Refill < 3 Seconds Skin Temperature Warm Skin Moisture Dry Skin Color Normal Skin Turgor Loose Anterior Throughout Breath Sounds Clear,Diminished Respiratory Depth Normal Respiratory Effort Spontaneous,Non-Labored,Easy Cough Description None Elimination Rectum Abdomen Description Soft,Non-Tender,No Distention Gastrointestinal Symptoms None Bowel Sounds RLQ: Active RUQ: Active LUQ: Active LLQ: Active Voiding Method Continent,Urinal Genitourinary Symptoms Urinary Frequency,Urinary Urgency Urine Characteristics Clear Urine color Bright Yellow Urine Odor Not Observed Document 10/11/23 10:00 (Rec: 10/11/23 10:51 [id number]) CC/IC Flowsheet Change From Previous Assessment No Document 10/11/23 12:00 (Rec: 10/11/23 12:58 [id number]) CC/IC Flowsheet Change From Previous Assessment No Document 10/11/23 14:51 SK (Rec: 10/11/23 15:00 SK [id number]) CC/IC Flowsheet Sepsis Infection Criteria Present Documented Infection Eye Opening Spontaneous Verbal Response Orientated Motor Response Obey Commands [place] Coma Scale Total 15 Bilateral Pupil Reaction Brisk Facial Symmetry Symmetrical Speech Pattern Appropriate,Clear Apical Rhythm Regular Heart Sounds S1 & S2 Skin Temperature Warm Skin Moisture Dry Skin Color Normal Skin Turgor Loose Anterior Throughout Breath Sounds Clear,Diminished Respiratory Depth Normal Respiratory Effort Spontaneous,Non-Labored Abdomen Description Soft,Non-Tender,No Distention Bowel Sounds RLQ: Active RUQ: Active LUQ: Active LLQ: Active Voiding Method Continent,Urinal EKG Performed Start: 10/10/23 13:19 Freq: ONCE Status: Complete Protocol: Document 10/10/23 13:19 JDF (Rec: 10/10/23 19:57 JDF [id number]) EKG Assessment EKG Indications Follow-Up EKG Method Telemetry Pulse Rate (60-100 beats/min) 98 VA Interval (0.12-0.20 seconds) 0 L QRS Interval (0.06-0.10 seconds) 0.16 H QT Interval (0.30-0.40 seconds) 0.34 EKG Rhythm Atrial Fibrillation with Normal Ventricular Rate Elopement Risk Assessment Start: 10/10/23 11:33 Freq: Q1MX1,QSHIFT Status: Active Protocol: Document 10/10/23 11:33 JDF (Rec: 10/10/23 13:53 JDF [id number]) Elopement Risk Assessment Elopement Medical No Elopement Psych No Document 10/10/23 20:00 PF (Rec: 10/10/23 22:16 PF [id number]) Elopement Risk Assessment Elopement Medical No Elopement Psych No Document 10/11/23 08:00 (Rec: 10/11/23 10:51 [id number]) Elopement Risk Assessment Elopement Medical No Elopement Psych No Fall Precautions Start: 10/10/23 11:08 Freq: QSHIFT Status: Active Protocol: Document 10/10/23 20:00 PF (Rec: 10/10/23 22:16 PF [id number]) Document 10/11/23 08:00 (Rec: 10/11/23 10:51 [id number]) Fall Risk Assessment Start: 10/10/23 11:33 Freq: Q1MX1,QS Status: Active Protocol: Document 10/10/23 11:33 JDF (Rec: 10/10/23 13:52 JDF [id number]) Fall Risk Assessment Patient Able to Participate in Fall Risk Yes Assessment History of Falling (Immediate or No Previous) Secondary Diagnosis (2 Or More Medical Yes Diagnoses in Chart) Ambulatory Aid None/bed rest/nurse assist IV/Heparin Lock Yes Gait/Transferring Normal/bedrest/immobile Mental Status Oriented to own ability Score 35 Risk Level Moderate Fall Risk Action Implement Moderate Fall Risk Precautions Recommend Medication Review No Moderate Fall Risk Precautions Room Orientation,Needs Within Reach (Table, Belongings, Call Light),Provide Adequate Lighting,Confirm Patient Has Proper Footwear,Bed In Lowest Position, Bedrails Up X2, Wheels Locked,Minimize clutter , Keep Floor Clean/Dry,Educate Pt On Fall Risk Status,Fall Risk Wristband On,Colored Socks Indicating Fall Risk On, Fall Risk Signage On Display, Set Chair/Bed Alarm,Gait Belt When Up With Staff,Communicate Fall Risk Status With Staff Fall Education Topics Moderate Risk Fall Precautions Initiated Teaching Recipient - Fall Risk Patient,Family Teaching Methods - Fall Risk Discussion,Handout Response to Teaching - Fall Risk Verbalize Understanding Height & Weight Assessment Start: 10/10/23 11:33 Freq: Q1MX1,QAM Status: Active Protocol: Document 10/10/23 11:33 JDF (Rec: 10/10/23 12:14 JDF [id number]) Height and Weight Height 6 ft 2 in Weight 218 lb 3.2 oz Weight Measurement Method Built in [facility] Body Mass Index (kg/m?) 28.0 BMI Classification Overweight Document 10/11/23 06:00 PF (Rec: 10/11/23 06:53 PF [id number]) Height and Weight Weight 222 lb 9.6 oz IV Insertion Start: 10/10/23 11:33 Freq: NEEDED Status: Active Protocol: Document 10/10/23 11:50 JDF (Rec: 10/10/23 13:51 JDF [id number]) IV Insertion IV/Invasive Line Present on Admission Yes Right Antecubital Type Peripheral IV Date of Insertion 10/10/23 Time of Insertion 11:45 Gauge (Fr) 20 Site Secured Venaguard,J-Loop,Coban Line Insertion Patient Tolerance Tolerated Well IV Site and Tubing Dated and Initialed Yes IV Insertion Attempts 1 Insertion Attempts Comment ultrasound guided Immunization Assessment Start: 10/10/23 11:33 Freq: ONCE Status: Complete Protocol: Document 10/10/23 11:33 JDF (Rec: 10/10/23 12:24 JDF [id number]) Immunization Assessment Patient is 65 Years of Age or Older Yes Patient 5- 64 y/o with Indicated Health None Problems Patient 19- 64 y/o with Asthma No Patient Meets Recommendations for No Pneumonia Vaccine Pneumonia Contraindications Received in Past 5 Years Patient to Receive Vaccination No Influenza Contraindications Received Vaccine This Current Season Have You Recieved a COVID Vaccine Yes-Full Course If Yes, Which Brand of Vaccine Did You Moderna Receive Initial Pain Assessment Start: 10/10/23 11:33 Freq: ONCE Status: Complete Protocol: Document 10/10/23 11:33 JDF (Rec: 10/10/23 13:51 JDF [id number]) Pain Assessment Pain Present No Intake and Output Start: 10/10/23 11:33 Freq: 05,08,12,17,22 Status: Active Protocol: Document 10/10/23 12:00 JDF (Rec: 10/10/23 19:55 JDF [id number]) Intake and Output Meal Lunch Percent Meal Consumed 50% Feeding Ability Independent Intake, Oral Amount 150 Document 10/10/23 12:44 JDF (Rec: 10/10/23 13:15 JDF [id number]) Intake and Output amiodarone 150 mg In 100 ml @ 400 mls/hr IV ONCE ONE Rx#:[id number] Intake, IV Amount 100 Document 10/10/23 17:00 JDF (Rec: 10/10/23 19:55 JDF [id number]) Intake and Output Meal Dinner Percent Meal Consumed 50% Feeding Ability Independent Intake, Oral Amount 250 Output, Urine Amount 300 Number of Voids 2 Document 10/10/23 18:46 PF (Rec: 10/10/23 19:29 PF [id number]) Intake and Output amiodarone 360 mg In 200 ml @ Per Protocol IV .Q0M TYLER Rx#:[id number] Intake, IV Amount 200 Document 10/10/23 19:10 JDF (Rec: 10/11/23 13:29 JDF [id number]) Intake and Output cefTRIAXone 1,000 mg In sodium chloride 0.9% (plus) 50 ml @ 100 mls/hr IV Q24H TYLER Rx#:[id number] Intake, IV Amount 50 Document 10/10/23 20:00 PF (Rec: 10/10/23 22:19 PF [id number]) Intake and Output Output, Urine Amount 120 Document 10/10/23 21:30 PF (Rec: 10/10/23 22:19 PF [id number]) Intake and Output Intake, Oral Amount 50 Output, Urine Amount 200 Document 10/11/23 00:00 PF (Rec: 10/11/23 06:51 PF [id number]) Intake and Output Output, Urine Amount 140 Document 10/11/23 02:00 PF (Rec: 10/11/23 06:51 PF [id number]) Intake and Output Output, Urine Amount 160 Document 10/11/23 05:00 PF (Rec: 10/11/23 06:51 PF [id number]) Intake and Output Output, Urine Amount 200 Document 10/11/23 07:25 PF (Rec: 10/11/23 07:25 PF [id number]) Intake and Output amiodarone 360 mg In 200 ml @ Per Protocol IV .Q0M TYLER Rx#:[id number] Intake, IV Amount 199.207 Document 10/11/23 08:00 (Rec: 10/11/23 10:51 [id number]) Intake and Output Meal Breakfast Percent Meal Consumed 75% Feeding Ability Assist with Tray Set Up Diet Tolerated Fair Intake, Oral Amount 480 Urine color Bright Yellow Urine Odor Not Observed Document 10/11/23 12:00 (Rec: 10/11/23 13:07 [id number]) Intake and Output Intake, Oral Amount 120 Intermittent Pneumatic Compression Start: 10/10/23 11:10 Freq: Q1MX1,QSHIFT Status: Active Protocol: Document 10/10/23 20:00 PF (Rec: 10/10/23 22:16 PF [id number]) VTE Assessment Embolism Prevention SCD-Bilateral Document 10/11/23 08:00 (Rec: 10/11/23 10:48 [id number]) VTE Assessment Reason Mechanical Device Not Applied Complication of medical care Invasive Brand Analyst Start: 10/10/23 11:33 Freq: Q2HR Status: Active Protocol: Document 10/10/23 12:00 JDF (Rec: 10/10/23 13:56 JDF [id number]) IV Brand Analyst Right Antecubital Site Observation/Description Patent/Intact,Clean/Dry, Asymptomatic Site Observation Intervention Inspected Line Line Care Check Blood Return,Saline Flush Central Brand Analyst Assessment Right Subclavian Vein IV Catheter Type Implanted Port Purpose of Device Chemotherapy,Fluids and Medications Accessed Date 10/10/23 Date Dressing Changed 10/10/23 IV Line Site Observation Patent/Intact,Clean/Dry, Asymptomatic IV Line Care Check Blood Return,Saline Flush Document 10/10/23 14:00 JDF (Rec: 10/10/23 19:57 JDF [id number]) IV Brand Analyst Right Antecubital Site Observation/Description Patent/Intact,Clean/Dry, Asymptomatic Site Observation Intervention Inspected Line Central Brand Analyst Assessment Right Subclavian Vein IV Catheter Type Implanted Port Purpose of Device Chemotherapy,Fluids and Medications Accessed Date 10/10/23 Date Dressing Changed 10/10/23 IV Line Site Observation Patent/Intact,Clean/Dry, Asymptomatic Document 10/10/23 16:00 JDF (Rec: 10/10/23 19:57 JDF [id number]) IV Brand Analyst Right Antecubital Site Observation/Description Patent/Intact,Clean/Dry, Asymptomatic Site Observation Intervention Inspected Line Central Brand Analyst Assessment Right Subclavian Vein IV Catheter Type Implanted Port Purpose of Device Chemotherapy,Fluids and Medications Accessed Date 10/10/23 Date Dressing Changed 10/10/23 IV Line Site Observation Patent/Intact,Clean/Dry, Asymptomatic Document 10/10/23 18:00 JDF (Rec: 10/10/23 19:57 JDF [id number]) IV Brand Analyst Right Antecubital Site Observation/Description Patent/Intact,Clean/Dry, Asymptomatic Site Observation Intervention Inspected Line Central Brand Analyst Assessment Right Subclavian Vein IV Catheter Type Implanted Port Purpose of Device Chemotherapy,Fluids and Medications Accessed Date 10/10/23 Date Dressing Changed 10/10/23 IV Line Site Observation Patent/Intact,Clean/Dry, Asymptomatic Document 10/10/23 20:00 PF (Rec: 10/10/23 22:16 PF [id number]) IV Brand Analyst Right Antecubital Site Observation/Description Patent/Intact,Asymptomatic Central Brand Analyst Assessment Right Subclavian Vein IV Catheter Type Implanted Port Purpose of Device Fluids and Medications IV Line Site Observation Patent/Intact,Clean/Dry, Asymptomatic Document 10/10/23 22:00 PF (Rec: 10/10/23 22:48 PF [id number]) IV Brand Analyst Right Antecubital Site Observation/Description Patent/Intact Central Brand Analyst Assessment Right Subclavian Vein IV Catheter Type Central Line Purpose of Device Fluids and Medications IV Line Site Observation Patent/Intact,Clean/Dry, Asymptomatic Document 10/11/23 00:00 PF (Rec: 10/11/23 01:50 PF [id number]) IV Brand Analyst Right Antecubital Site Observation/Description Patent/Intact Document 10/11/23 02:00 PF (Rec: 10/11/23 02:23 PF [id number]) IV Brand Analyst Right Antecubital Site Observation/Description Patent/Intact Document 10/11/23 04:00 PF (Rec: 10/11/23 06:48 PF [id number]) IV Brand Analyst Right Antecubital Site Observation/Description Patent/Intact Document 10/11/23 06:00 PF (Rec: 10/11/23 07:32 PF [id number]) IV Brand Analyst Right Antecubital Site Observation/Description Patent/Intact Document 10/11/23 08:00 (Rec: 10/11/23 10:51 [id number]) IV Brand Analyst Right Antecubital Site Observation/Description Patent/Intact,Clean/Dry, Asymptomatic Site Observation Intervention Inspected Line Line Care Saline Flush Central Brand Analyst Assessment Right Subclavian Vein IV Catheter Type Implanted Port Purpose of Device Fluids and Medications, Vascular Access IV Line Site Observation Patent/Intact,Clean/Dry, Asymptomatic Document 10/11/23 10:00 (Rec: 10/11/23 10:57 [id number]) IV Brand Analyst Right Antecubital Site Observation/Description Patent/Intact,Clean/Dry, Asymptomatic Site Observation Intervention Inspected Line Central Brand Analyst Assessment Right Subclavian Vein IV Catheter Type Implanted Port Purpose of Device Fluids and Medications, Hemodynamic Monitoring, Vascular Access IV Line Site Observation Patent/Intact,Clean/Dry, Asymptomatic Document 10/11/23 12:00 (Rec: 10/11/23 13:07 [id number]) IV Brand Analyst Right Antecubital Site Observation/Description Patent/Intact,Clean/Dry, Asymptomatic Site Observation Intervention Inspected Line Central Brand Analyst Assessment Right Subclavian Vein IV Catheter Type Implanted Port Purpose of Device Fluids and Medications, Hemodynamic Monitoring, Vascular Access IV Line Site Observation Patent/Intact,Clean/Dry, Asymptomatic Measure Intake And Output Start: 10/10/23 11:09 Freq: QSHIFT Status: Active Protocol: Document 10/10/23 20:00 PF (Rec: 10/10/23 22:13 PF [id number]) Document 10/11/23 08:00 (Rec: 10/11/23 10:51 [id number]) Measure Weight Start: 10/10/23 11:09 Freq: 0600 Status: Active Protocol: Document 10/11/23 06:00 PF (Rec: 10/11/23 07:35 PF [id number]) Height and Weight Weight 220 lb 3.2 oz Nursing Considerations - Fall Risk Start: 10/10/23 13:52 Freq: Q1MX1,BIDNUR Status: Active Protocol: Document 10/10/23 13:52 JDF (Rec: 10/10/23 13:56 JDF [id number]) Document 10/10/23 20:00 PF (Rec: 10/10/23 22:13 PF [id number]) Document 10/11/23 08:00 (Rec: 10/11/23 10:51 [id number]) Nursing Lab Draw Start: 10/10/23 11:33 Freq: 05,17 Status: Active Protocol: Document 10/10/23 17:00 JDF (Rec: 10/10/23 20:06 JDF [id number]) Nursing Lab Draw Blood Drawn This Shift None Number of Saline Flushes Used 2 Blood Draw Location Right,Peripheral Line,PIID, Hasmukh Cath Site Cleansed With Alcohol Swab Document 10/11/23 05:00 PF (Rec: 10/11/23 06:51 PF [id number]) Nursing Lab Draw Blood Drawn This Shift None Number of Saline Flushes Used 2 Nursing Rounding Start: 10/10/23 11:33 Freq: Q1HR Status: Active Protocol: Document 10/10/23 12:00 JDF (Rec: 10/10/23 13:56 [facility] [id number]) Nursing Rounding Patient Rounding Activity Resting in Bed,Visitors at Bedside Pain Present No Pain Treated as Ordered No Medications Reviewed Yes Questions/Concerns Addressed Yes Results Followed up on (Labs, Test, etc. Yes ) Care Board Updated Yes Is the Room Tidy? Yes Safety Rounds Bed/Chair Alarm Reset,Call Light in Reach,Rails X2 Document 10/10/23 13:00 JDF (Rec: 10/10/23 13:56 [facility] [id number]) Nursing Rounding Patient Rounding Activity Resting in Bed,Visitors at Bedside Pain Present No Pain Treated as Ordered No Medications Reviewed Yes Questions/Concerns Addressed Yes Results Followed up on (Labs, Test, etc. Yes ) Care Board Updated Yes Is the Room Tidy? Yes Safety Rounds Bed/Chair Alarm Reset,Call Light in Reach,Rails X2 Document 10/10/23 14:00 JDF (Rec: 10/10/23 19:58 [facility] [id number]) Nursing Rounding Patient Rounding Activity Resting in Bed,Visitors at Bedside Pain Present No Pain Treated as Ordered No Medications Reviewed Yes Questions/Concerns Addressed Yes Results Followed up on (Labs, Test, etc. Yes ) Care Board Updated Yes Is the Room Tidy? Yes Safety Rounds Bed/Chair Alarm Reset,Call Light in Reach,Rails X2 Document 10/10/23 15:00 JDF (Rec: 10/10/23 19:58 [facility] [id number]) Nursing Rounding Patient Rounding Activity Resting in Bed,Visitors at Bedside Pain Present No Pain Treated as Ordered No Medications Reviewed Yes Questions/Concerns Addressed Yes Results Followed up on (Labs, Test, etc. Yes ) Care Board Updated Yes Is the Room Tidy? Yes Safety Rounds Bed/Chair Alarm Reset,Call Light in Reach,Rails X2 Document 10/10/23 16:00 JDF (Rec: 10/10/23 19:58 [facility] [id number]) Nursing Rounding Patient Rounding Activity Resting in Bed,Visitors at Bedside Pain Present No Pain Treated as Ordered No Medications Reviewed Yes Questions/Concerns Addressed Yes Results Followed up on (Labs, Test, etc. Yes ) Care Board Updated Yes Is the Room Tidy? Yes Safety Rounds Bed/Chair Alarm Reset,Call Light in Reach,Rails X2 Document 10/10/23 17:00 JDF (Rec: 10/10/23 19:58 [facility] [id number]) Nursing Rounding Patient Rounding Activity Resting in Bed,Visitors at Bedside,Eating Pain Present No Pain Treated as Ordered No Medications Reviewed Yes Questions/Concerns Addressed Yes Results Followed up on (Labs, Test, etc. Yes ) Care Board Updated Yes Is the Room Tidy? Yes Safety Rounds Bed/Chair Alarm Reset,Call Light in Reach,Rails X2 Document 10/10/23 18:00 JDF (Rec: 10/10/23 19:58 [facility] [id number]) Nursing Rounding Patient Rounding Activity Resting in Bed,Visitors at Bedside Pain Present No Pain Treated as Ordered No Medications Reviewed Yes Questions/Concerns Addressed Yes Results Followed up on (Labs, Test, etc. Yes ) Care Board Updated Yes Is the Room Tidy? Yes Safety Rounds Bed/Chair Alarm Reset,Call Light in Reach,Rails X2 Document 10/10/23 19:00 JDF (Rec: 10/10/23 20:06 [facility] [id number]) Nursing Rounding Patient Rounding Activity Resting in Bed,Visitors at Bedside Pain Present No Pain Treated as Ordered No Medications Reviewed Yes Questions/Concerns Addressed Yes Results Followed up on (Labs, Test, etc. Yes ) Care Board Updated Yes Is the Room Tidy? Yes Safety Rounds Bed/Chair Alarm Reset,Call Light in Reach,Rails X2 Document 10/10/23 20:00 PF (Rec: 10/10/23 22:17 PF [id number]) Nursing Rounding Patient Rounding Activity Resting in Bed,Visitors at Bedside Pain Present No Pain Treated as Ordered N/A Medications Reviewed N/A Questions/Concerns Addressed Yes Results Followed up on (Labs, Test, etc. N/A ) Care Board Updated Yes Is the Room Tidy? Yes Safety Rounds Table Within Reach,Bed/Chair Alarm Reset,Rails X2 Document 10/10/23 21:00 PF (Rec: 10/10/23 22:17 PF [id number]) Nursing Rounding Patient Rounding Activity Resting in Bed,Visitors at Bedside Pain Present No Pain Treated as Ordered N/A Medications Reviewed N/A Questions/Concerns Addressed Yes Results Followed up on (Labs, Test, etc. N/A ) Care Board Updated Yes Is the Room Tidy? Yes Safety Rounds Table Within Reach,Bed/Chair Alarm Reset,Rails X2 Document 10/10/23 22:00 PF (Rec: 10/10/23 22:48 PF [id number]) Nursing Rounding Patient Rounding Activity Resting in Bed Pain Present No Pain Treated as Ordered N/A Medications Reviewed N/A Questions/Concerns Addressed Yes Results Followed up on (Labs, Test, etc. N/A ) Care Board Updated No Is the Room Tidy? Yes Safety Rounds Table Within Reach,Bed/Chair Alarm Reset,Call Light in Reach,Rails X2 Document 10/10/23 23:00 PF (Rec: 10/11/23 01:49 PF [id number]) Nursing Rounding Patient Rounding Activity Resting in Bed Pain Present No Pain Treated as Ordered N/A Medications Reviewed N/A Questions/Concerns Addressed Yes Results Followed up on (Labs, Test, etc. N/A ) Care Board Updated No Is the Room Tidy? Yes Safety Rounds Table Within Reach,Bed/Chair Alarm Reset,Call Light in Reach,Rails X2 Document 10/11/23 00:00 PF (Rec: 10/11/23 01:50 PF [id number]) Nursing Rounding Patient Rounding Activity Resting in Bed Pain Present No Pain Treated as Ordered N/A Medications Reviewed N/A Questions/Concerns Addressed No Results Followed up on (Labs, Test, etc. N/A ) Care Board Updated No Is the Room Tidy? Yes Safety Rounds Table Within Reach,Bed/Chair Alarm Reset,Call Light in Reach,Rails X2 Document 10/11/23 01:00 PF (Rec: 10/11/23 01:50 PF [id number]) Nursing Rounding Patient Rounding Activity Resting in Bed Pain Present No Pain Treated as Ordered N/A Medications Reviewed N/A Questions/Concerns Addressed Yes Results Followed up on (Labs, Test, etc. N/A ) Care Board Updated No Is the Room Tidy? Yes Safety Rounds Table Within Reach,Call Light in Reach,Rails X3 Document 10/11/23 02:00 PF (Rec: 10/11/23 02:24 PF [id number]) Nursing Rounding Patient Rounding Activity Resting in Bed Pain Present No Pain Treated as Ordered N/A Medications Reviewed N/A Questions/Concerns Addressed No Results Followed up on (Labs, Test, etc. N/A ) Care Board Updated No Is the Room Tidy? Yes Safety Rounds Table Within [facility],Call Light in [facility],Rails X3 Document 10/11/23 03:00 PF (Rec: 10/11/23 06:47 PF [id number]) Nursing Rounding Patient Rounding Activity Resting in Bed Pain Present No Pain Treated as Ordered N/A Medications Reviewed N/A Questions/Concerns Addressed No Results Followed up on (Labs, Test, etc. N/A ) Care Board Updated No Is the Room Tidy? Yes Safety Rounds Table Within [facility],Call Light in [facility],Rails X3 Document 10/11/23 04:00 PF (Rec: 10/11/23 06:48 PF [id number]) Nursing Rounding Patient Rounding Activity Resting in Bed Pain Present No Pain Treated as Ordered N/A Medications Reviewed N/A Questions/Concerns Addressed No Results Followed up on (Labs, Test, etc. N/A ) Care Board Updated No Is the Room Tidy? Yes Safety Rounds Table Within [facility],Call Light in [facility],Rails X3 Document 10/11/23 05:00 PF (Rec: 10/11/23 06:48 PF [id number]) Nursing Rounding Patient Rounding Activity Resting in Bed Pain Present No Pain Treated as Ordered N/A Medications Reviewed N/A Questions/Concerns Addressed No Results Followed up on (Labs, Test, etc. N/A ) Care Board Updated No Is the Room Tidy? Yes Safety Rounds Table Within [facility],Call Light in [facility],Rails X3 Document 10/11/23 06:00 PF (Rec: 10/11/23 06:48 PF [id number]) Nursing Rounding Patient Rounding Activity Resting in Bed Pain Present No Pain Treated as Ordered N/A Medications Reviewed N/A Questions/Concerns Addressed No Results Followed up on (Labs, Test, etc. N/A ) Care Board Updated No Is the Room Tidy? Yes Safety Rounds Table Within [facility],Call Light in [facility],Rails X3 Document 10/11/23 07:00 (Rec: 10/11/23 07:48 [id number]) Nursing Rounding Patient Rounding Activity Resting in Bed Pain Present No Pain Treated as Ordered N/A Medications Reviewed Yes Questions/Concerns Addressed Yes Results Followed up on (Labs, Test, etc. Yes ) Care Board Updated Yes Is the Room Tidy? Yes Safety Rounds Table Within [facility],Call Light in [facility],Rails X2 Document 10/11/23 08:00 (Rec: 10/11/23 10:51 [id number]) Nursing Rounding Patient Rounding Activity Visitors at Bedside,Up to Chair Pain Present No Pain Treated as Ordered N/A Medications Reviewed Yes Questions/Concerns Addressed Yes Results Followed up on (Labs, Test, etc. Yes ) Care Board Updated No Is the Room Tidy? Yes Safety Rounds Table Within Reach,Call Light in Reach Document 10/11/23 09:00 (Rec: 10/11/23 10:51 [id number]) Nursing Rounding Patient Rounding Activity Up to Chair Pain Present No Pain Treated as Ordered N/A Medications Reviewed Yes Questions/Concerns Addressed Yes Results Followed up on (Labs, Test, etc. Yes ) Care Board Updated No Is the Room Tidy? Yes Safety Rounds Table Within Reach,Call Light in Reach,Rails X2 Document 10/11/23 10:00 (Rec: 10/11/23 10:57 [id number]) Nursing Rounding Patient Rounding Activity Visitors at Bedside,Up to Chair Pain Present No Pain Treated as Ordered N/A Medications Reviewed Yes Questions/Concerns Addressed Yes Results Followed up on (Labs, Test, etc. Yes ) Care Board Updated No Is the Room Tidy? Yes Safety Rounds Table Within Reach,Call Light in Reach Document 10/11/23 11:00 (Rec: 10/11/23 12:58 [id number]) Nursing Rounding Patient Rounding Activity Visitors at Bedside,Up to Chair Pain Present No Pain Treated as Ordered N/A Medications Reviewed Yes Questions/Concerns Addressed Yes Results Followed up on (Labs, Test, etc. Yes ) Care Board Updated No Is the Room Tidy? Yes Safety Rounds Table Within Reach,Call Light in Reach,Rails X2 Document 10/11/23 12:00 (Rec: 10/11/23 13:07 [id number]) Nursing Rounding Patient Rounding Activity Visitors at Bedside,Up to Chair Pain Present No Pain Treated as Ordered N/A Medications Reviewed Yes Questions/Concerns Addressed Yes Results Followed up on (Labs, Test, etc. Yes ) Care Board Updated No Is the Room Tidy? Yes Safety Rounds Table Within Reach,Call Light in Reach,Rails X2 Document 10/11/23 13:00 (Rec: 10/11/23 13:07 [id number]) Nursing Rounding Patient Rounding Activity Visitors at Bedside,Up to Chair Pain Present No Pain Treated as Ordered N/A Medications Reviewed Yes Questions/Concerns Addressed Yes Results Followed up on (Labs, Test, etc. Yes ) Care Board Updated No Is the Room Tidy? Yes Safety Rounds Table Within Reach,Call Light in Reach,Rails X2 Pain Reassessment Start: 10/10/23 11:33 Freq: Q6HR Status: Active Protocol: Document 10/10/23 12:00 JDF (Rec: 10/10/23 13:56 JDF [id number]) Pain Reassessment Pain Present No Document 10/10/23 18:00 JDF (Rec: 10/10/23 20:06 JDF [id number]) Pain Reassessment Pain Present No Document 10/11/23 00:00 PF (Rec: 10/11/23 01:50 PF [id number]) Pain Reassessment Pain Present No Document 10/11/23 06:00 PF (Rec: 10/11/23 07:33 PF [id number]) Pain Reassessment Pain Present No Document 10/11/23 12:00 (Rec: 10/11/23 13:07 [id number]) Pain Reassessment Pain Present No Document 10/11/23 14:51 SK (Rec: 10/11/23 15:00 SK [id number]) Pain Reassessment Pain Present No Patient Belongings Start: 10/10/23 11:33 Freq: Q1MX1, NEEDED Status: Active Protocol: Document 10/10/23 11:33 JDF (Rec: 10/10/23 12:25 JDF [id number]) Patient Belongings Belongings With Patient on Admission Yes At Bedside Patient Belongings Clothing,Dentures,Electronics Belongings Comment clothing, cane, cell phone and hospitalist nocturnist physician, dentures: upper ad lower Personal Hygiene Assessment Start: 10/10/23 11:33 Freq: 1000,2200 Status: Active Protocol: Document 10/10/23 22:00 PF (Rec: 10/10/23 22:48 PF [id number]) Hygiene Assessment Hygiene Care Performed Linen Change,Incontinent, Diaper/Brief Change Bathing Ability 2 Person Assist Document 10/11/23 10:00 (Rec: 10/11/23 10:57 [id number]) Hygiene Assessment Hygiene Care Performed Oral Care,Skin Care Skin Measures Bed Sheets Smoothed,Drink Offered,Friction/Shear Management,Moisture Managment, Toileting Offered Any Reddened Areas Noted No Physical Assessment Start: 10/10/23 11:33 Freq: ONCE Status: Complete Protocol: Document 10/10/23 11:33 [facility] (Rec: 10/10/23 13:26 [facility] [id number]) Neurological Assessment Eye Opening Spontaneous Verbal Response Orientated Motor Response Obey Commands Felicia Coma Scale Total 15 Patient orientation (short list) Person,Place,Time Speech Pattern Appropriate,Clear Bilateral Pupil Reaction Brisk Pupil [place] PERRLA All Four Limbs Strength Mild Weakness Cardiovascular Assessment Apical Rhythm Irregular Bilateral Dorsalis Pedis Strength 2+ Slightly Diminished Method Palpation Bilateral Radial Pulse Rhythm Regular Strength 3+ Normal Method Palpation Capillary Refill < 3 Seconds Respiratory Assessment Effort Spontaneous,Non-Labored Depth Normal Respiratory Pattern Normal Expansion Symmetrical Anterior Throughout Breath Sounds Clear,Diminished Oxygen Delivery Method Nasal Cannula Gastrointestinal Assessment Gastrointestinal Symptoms None Abdomen Description Soft,Non-Tender Bowel Sounds RLQ: Hypoactive RUQ: Hypoactive LUQ: Hypoactive LLQ: Hypoactive Bowel Pattern Regular Date of Last Bowel Movement 10/09/23 Bowel Movement Frequency Every 2-4 Days Bowel Movement Method Toilet Genitourinary Assessment Genitourinary Symptoms Difficulty Urinating Voiding Method Urinal Urine Appearance Not Observed Integumentary Assessment Skin Temperature Warm Skin Moisture Dry Skin Turgor Loose Musculoskeletal Assessment Musculoskeletal Symptoms Back Pain Abuse and Neglect Screening Exploitation No Any Indication of Neglect by Self No Any Indication of Neglect by Caregiver No Any Indication of Abuse No Physician Notification Start: 10/10/23 11:33 Freq: NEEDED Status: Active Protocol: Document 10/10/23 20:00 J (Rec: 10/10/23 20:09 [facility] [id number]) Provider Notification Date Provider Notified 10/10/23 Time Notified 15:00 Name of Provider Notified Dr Pierre Reason for Notification/Communication Medication Related Contacted for Psych Consult per No Admission Screening Notification Comments MS contin q 12 hrs. Pt has ad dose this am at 0700, retime to reflect thi Provider Response yes Time Provider Responded 15:00 RT: Continuous O2 & Pulse Ox Flowsheet Start: 10/10/23 11:38 Freq: Status: Active Protocol: Document 10/10/23 11:38 PGD (Rec: 10/10/23 11:42 PGD [id number]) Continuous Oxygen and Pulse Ox Oxygen Saturation (90-100 %) 99 Pulse Rate (60-100 beats/min) 123 H Current Rate & Delivery Oxygen Flow Rate 2 Oxygen Delivery Method Nasal Cannula Respiratory Education Topics Oxygen Use and Equipment, Oxygen Safety Method Demonstration Recipient Patient,Family Response Verbalize Understanding RT: Daily Charges Start: 10/10/23 11:38 Freq: DAILY Status: Active Protocol: Document 10/11/23 08:07 PGD (Rec: 10/11/23 08:07 PGD [id number]) RT Daily Charges Oxygen Daily Charges Yes RT: Daily Treatment Record Start: 10/10/23 11:38 Freq: Q6H.RESP Status: Active Protocol: Document 10/10/23 14:47 PGD (Rec: 10/10/23 14:51 PGD [id number]) Respiratory Daily Treatment Daily Respiratory Treatment Method Initial SVN - 1 Treatment Tolerance Good Respiratory Treatment Adverse Reactions None Anterior Throughout Breath Sounds Coarse,Slightly Cough Description Strong Sputum Amount None Respiratory Education Topics Aerosol SVN & Equipment,Oxygen Use and Equipment,Oxygen Safety Respiratory Medication Education Duoneb Respiratory Topics Teaching Recipient Patient,Family Respiratory Topics Teaching Methods Discussion Respiratory Topics Response To Teaching Verbalize Understanding New Supplies Used Regular Nebulizer Document 10/10/23 19:54 JDB (Rec: 10/10/23 19:56 JDB [id number]) Respiratory Daily Treatment Daily Respiratory Treatment Method Subsequent SVN - 1 Treatment Tolerance Good Respiratory Treatment Adverse Reactions None Anterior Throughout Breath Sounds Coarse,Slightly Cough Description Strong Sputum Amount None New Supplies Used None Document 10/11/23 02:00 JDB (Rec: 10/11/23 03:54 JDB [id number]) Respiratory Daily Treatment Reason Treatment Not Given Patient Asleep Document 10/11/23 08:05 PGD (Rec: 10/11/23 08:07 PGD [id number]) Respiratory Daily Treatment Daily Respiratory Treatment Method Subsequent SVN - 1,Subsequent SVN - 2 Mouth Rinsed Post Treatment Yes Treatment Tolerance Good Respiratory Treatment Adverse Reactions None Anterior Throughout Breath Sounds Diminished Cough Description normal for patient Sputum Amount None Document 10/11/23 13:20 PGD (Rec: 10/11/23 13:38 PGD [id number]) Respiratory Daily Treatment Daily Respiratory Treatment Method Subsequent SVN - 1 Treatment Tolerance Good Respiratory Treatment Adverse Reactions None Anterior Throughout Breath Sounds Diminished Cough Description normal for patient Sputum Amount None RT: Vital Signs Start: 10/10/23 11:38 Freq: Q6H.RESP Status: Active Protocol: Document 10/10/23 14:47 PGD (Rec: 10/10/23 14:51 PGD [id number]) RT Vital Signs Treatment Pre Pulse Rate (60-100 beats/min) 100 Respiratory Rate (12-18 breaths/min) 16 Pulse Oximetry (90-100 %) 98 Flow Rate 2 Oxygen Delivery Method Nasal Cannula Document 10/10/23 15:00 PGD (Rec: 10/10/23 15:04 PGD [id number]) RT Vital Signs Treatment Post Pulse Rate (60-100 beats/min) 99 Document 10/10/23 19:54 JDB (Rec: 10/10/23 19:56 JDB [id number]) RT Vital Signs Treatment Pre Pulse Rate (60-100 beats/min) 81 Respiratory Rate (12-18 breaths/min) 14 Pulse Oximetry (90-100 %) 96 Flow Rate 2 Oxygen Delivery Method Nasal Cannula New Supplies Used None Document 10/11/23 02:00 JDB (Rec: 10/11/23 03:54 JDB [id number]) RT Vital Signs New Supplies Used None Document 10/11/23 08:05 PGD (Rec: 10/11/23 08:07 PGD [id number]) RT Vital Signs Treatment Pre Pulse Rate (60-100 beats/min) 92 Respiratory Rate (12-18 breaths/min) 18 Pulse Oximetry (90-100 %) 97 Flow Rate 2 Oxygen Delivery Method Nasal Cannula Document 10/11/23 13:20 PGD (Rec: 10/11/23 13:38 PGD [id number]) RT Vital Signs Treatment Pre Pulse Rate (60-100 beats/min) 99 Respiratory Rate (12-18 breaths/min) 18 Pulse Oximetry (90-100 %) 98 Flow Rate 2 Oxygen Delivery Method Nasal Cannula Document 10/11/23 13:30 PGD (Rec: 10/11/23 13:39 PGD [id number]) RT Vital Signs Treatment Post Pulse Rate (60-100 beats/min) 101 H Record Home Medications and Pharmacy Start: 10/10/23 11:33 Freq: ONCE Status: Complete Protocol: Document 10/10/23 11:33 JDF (Rec: 10/10/23 12:25 JDF [id number]) Record Past Medical, Family & Social Hx Start: 10/10/23 11:33 Freq: ONCE Status: Complete Protocol: Document 10/10/23 11:33 JDF (Rec: 10/10/23 13:51 JDF [id number]) Record or Confirm Allergies Start: 10/10/23 11:33 Freq: ONCE Status: Complete Protocol: Document 10/10/23 11:33 JDF (Rec: 10/10/23 12:26 JDF [id number]) SS: Discharge Plan Start: 10/10/23 14:41 Freq: NEEDED Status: Active Protocol: Document 10/10/23 14:45 [facility] (Rec: 10/10/23 14:50 [facility] [id number]) Discharge Plan Discharge Plan Home,Family Member Services Arranged for Discharge Home Health If Other-Comment Faxed [facility] Provider Chose From List Yes: HH: No preference Performance Data Provided Yes Orders Still Needed Yes Completed Discharge Planning Pending Physical Funtion (ADL's) No Assistance Require Physical Changes to Living No Enviornment Has Patient/Family been educated on post Yes -hospital care Additional Comments Pt lives at home with his . He is seen by Dr Summers & fills his meds at [facility] in [place]. He is able to drive or his can. He has a cane & O2 at [employer] from HOME. He has no home services. He does not have a HCD. He plans on returning home & his family thinks he would benefit from for a nurse to come check on him. Choices made & a choice letter signed & placed in chart. Faxed referral to [facility] . CM to follow up. Document 10/11/23 08:44 LS (Rec: 10/11/23 08:45 LS [id number]) Discharge Plan Additional Comments Marisa from [facility] called and stated they werent able to accept patient, Referral sent to [facility] Document 10/11/23 12:48 LS (Rec: 10/11/23 12:52 LS [id number]) Discharge Plan Additional Comments Kay at [facility] states patient is out of network with insurance. Document 10/11/23 12:52 LS (Rec: 10/11/23 12:52 LS [id number]) Discharge Plan Additional Comments Referral faxed to [facility] SS: Initial Assessment Start: 10/10/23 14:41 Freq: Q1MX1 Status: Active Protocol: Document 10/10/23 14:41 [facility] (Rec: 10/10/23 14:45 [facility] [id number]) Initial Interview Screening Criteria Other Other Criteria Discharge planning History Provided By Patient,Spouse/Significant Other Who May I Contact in Your Family to Keep , Angella Rhodes [phone] Yqlf Zuvnfcf [phone] daughterKay Pay Source Referral(s) Made None Healthcare Directives No- Not Interested Living Arrangements Spouse/Significant Other Pt Have Concerns About Their Living No Environment Relationship Status Are There Barriers to Positive Treatment No Outcomes Do You Have Transportation Available if Yes, Family Returning Home at Services Prior to Admission None Current DME Oxygen- Concentrator,Oxygen- Portable,[employer] Providing Equipment HOME Physical Funtion (ADL's) No Assistance Social Drivers of Health Screening Start: 10/10/23 11:17 Freq: NOW Status: Active Protocol: Document 10/10/23 12:00 JDF (Rec: 10/10/23 13:53 JDF [id number]) Social Drivers of Health What is your current living situation I have a steady place to live Housing Instability Screening Complete Yes Past 12 mos, fear food will run out Never true before able to buy more Food Insecurity Screening Complete Yes In the past 12 mos, lack of transport No Transportation Needs Complete Yes In the past 12 mos, utilities in danger No of being shut off Utility Difficulty Screening Complete Yes How often have others threatened you Never with harm Interpersonal Safety Screening Complete Yes Suicide Risk Start: 10/10/23 11:33 Freq: Q1MX1,Q6H Status: Complete Protocol: Document 10/10/23 11:33 JDF (Rec: 10/10/23 13:52 JDF [id number]) Suicide Risk Assessment Wish To Be No Non-Specific Active Suicidal Thoughts No Active Suicidal Ideation With Some No Intent To Act, Without Sp Suicidal Ideation With Specific Plan and No Intent Suicidal Behavior Never Surveillance Start: 10/11/23 11:02 Freq: Status: Active Protocol: Document 10/11/23 11:00 EMERSON DAMARLY (Rec: 10/11/23 11:02 BKG DAEMON [id number]) Surveillance Central Line Location [facility] 10/11/2023 1000 Implanted [place] Teach: Continuous Teaching Record Start: 10/10/23 11:33 Freq: 10,22 Status: Active Protocol: Document 10/10/23 22:00 PF (Rec: 10/10/23 22:49 PF [id number]) Teach: Continuous Teaching Does patient need to speak with Yes discharge planning or Case M Medical Equipment Oxygen Safety,Telemetry & Rhythm Teaching Recipient Patient Teaching Methods Discussion Response to Teaching Reinforcement Needed Treatment Plan Activity,Reportable Signs and Symptoms Teaching Recipient Patient Teaching Methods Discussion Response to Teaching Verbalize Understanding, Reinforcement Needed Document 10/11/23 10:00 (Rec: 10/11/23 10:57 [id number]) Teach: Continuous Teaching Does patient need to speak with No discharge planning or Case M Medical Equipment Bed Alarm,IV Pump,Oxygen Safety,Telemetry & Rhythm Teaching Recipient Patient Teaching Methods Discussion Response to Teaching Verbalize Understanding Medication Metoprolol Medication Topic Dose Teaching Recipient Patient,Family Teaching Methods Discussion Response to Teaching Verbalize Understanding Treatment Plan Activity,Diet/Meals,Infection Prevention & Precautions, Reportable Signs and Symptoms, Treatment Goals Teaching Recipient Patient,Family Teaching Methods Discussion Response to Teaching Verbalize Understanding Teach: Hospitalization Admit Start: 10/10/23 11:33 Freq: ONCE Status: Complete Protocol: Document 10/10/23 11:33 JDF (Rec: 10/10/23 19:52 JDF [id number]) Teach: Hospital Admission Primary Language Serbian Preferred Language Serbian Teaching Materials Given in Preferred Yes Language Needed for Clear Communication Glasses Was Patient Provided With My Health Yes: pt handbook not available Folder and Contents at this time Utilize Vnhn-je-Drpy Program at No Discharge [place] Teaching Orientation to Room,Patient Guide Teaching Recipient Patient Teaching Methods Discussion Response to Teaching Return Demonstration Pain Topics Pain Management Program,Pain Relief Options Teaching Recipient Patient,Family Teaching Methods Discussion Response to Teaching Verbalize Understanding Medical Equipment IV Pump,Telemetry Teaching Recipient Patient,Family Teaching Methods Discussion Response to Teaching Verbalize Understanding Teach: Market Master Start: 10/10/23 14:41 Freq: NEEDED Status: Active Protocol: Document 10/10/23 14:41 [facility] (Rec: 10/10/23 14:41 [facility] [id number]) Teach: Market Master Topic Discharge Planning Recipient Patient,Family Methods Discussion Response Verbalize Understanding Vital Signs Start: 10/10/23 11:09 Freq: Q1MX1,Q2HR Status: Active Protocol: Document 10/10/23 12:00 JDF (Rec: 10/10/23 13:55 J [id number]) Vital Signs - Monitor Interface Pulse Rate (60-100 beats/min) 112 H Respiratory Rate (12-18 breaths/min) 20 H Blood Pressure (mmHg) 114/74 Blood Pressure Mean (mmHg) 87 Blood Pressure Source Automatic Cuff Pulse Oximetry (90-100 %) 99 Oxygen Delivery Method Nasal Cannula Oxygen Flow Rate 2 Document 10/10/23 12:15 JDF (Rec: 10/10/23 13:55 J [id number]) Vital Signs - Monitor Interface Temperature (97.6 F-99.6 F) 97.2 F L Temperature Source Axillary Pulse Rate (60-100 beats/min) 101 H Respiratory Rate (12-18 breaths/min) 13 Blood Pressure (mmHg) 103/67 Blood Pressure Mean (mmHg) 79 Blood Pressure Source Automatic Cuff Pulse Oximetry (90-100 %) 97 Oxygen Delivery Method Nasal Cannula Oxygen Flow Rate 2 Document 10/10/23 12:30 JDF (Rec: 10/10/23 13:55 J [id number]) Vital Signs - Monitor Interface Pulse Rate (60-100 beats/min) 103 H Respiratory Rate (12-18 breaths/min) 16 Blood Pressure (mmHg) 106/65 Blood Pressure Mean (mmHg) 78 Blood Pressure Source Automatic Cuff Pulse Oximetry (90-100 %) 97 Oxygen Delivery Method Nasal Cannula Oxygen Flow Rate 2 Document 10/10/23 12:45 JDF (Rec: 10/10/23 13:55 J [id number]) Vital Signs - Monitor Interface Pulse Rate (60-100 beats/min) 94 Respiratory Rate (12-18 breaths/min) 17 Blood Pressure (mmHg) 73/43 Blood Pressure Mean (mmHg) 53 Blood Pressure Source Automatic Cuff Pulse Oximetry (90-100 %) 99 Oxygen Delivery Method Nasal Cannula Oxygen Flow Rate 2 Document 10/10/23 13:00 JDF (Rec: 10/10/23 13:55 [facility] [id number]) Vital Signs - Monitor Interface Pulse Rate (60-100 beats/min) 92 Respiratory Rate (12-18 breaths/min) 24 H Blood Pressure (mmHg) 103/69 Blood Pressure Mean (mmHg) 80 Blood Pressure Source Automatic Cuff Pulse Oximetry (90-100 %) 97 Oxygen Delivery Method Nasal Cannula Oxygen Flow Rate 2 Document 10/10/23 13:15 JDF (Rec: 10/10/23 13:55 [facility] [id number]) Vital Signs - Monitor Interface Pulse Rate (60-100 beats/min) 100 Respiratory Rate (12-18 breaths/min) 20 H Blood Pressure (mmHg) 101/59 Blood Pressure Mean (mmHg) 73 Blood Pressure Source Automatic Cuff Pulse Oximetry (90-100 %) 97 Oxygen Delivery Method Nasal Cannula Oxygen Flow Rate 2 Document 10/10/23 13:30 JDF (Rec: 10/10/23 13:55 [facility] [id number]) Vital Signs - Monitor Interface Pulse Rate (60-100 beats/min) 92 Respiratory Rate (12-18 breaths/min) 21 H Blood Pressure (mmHg) 97/62 Blood Pressure Mean (mmHg) 73 Blood Pressure Source Automatic Cuff Pulse Oximetry (90-100 %) 97 Oxygen Delivery Method Nasal Cannula Oxygen Flow Rate 2 Document 10/10/23 13:45 JDF (Rec: 10/10/23 13:55 [facility] [id number]) Vital Signs - Monitor Interface Pulse Rate (60-100 beats/min) 100 Respiratory Rate (12-18 breaths/min) 19 H Blood Pressure (mmHg) 111/60 Blood Pressure Mean (mmHg) 77 Blood Pressure Source Automatic Cuff Pulse Oximetry (90-100 %) 99 Oxygen Delivery Method Nasal Cannula Oxygen Flow Rate 2 Document 10/10/23 14:00 JDF (Rec: 10/10/23 20:05 [facility] [id number]) Vital Signs - Monitor Interface Pulse Rate (60-100 beats/min) 102 H Respiratory Rate (12-18 breaths/min) 20 H Blood Pressure (mmHg) 92/58 Blood Pressure Mean (mmHg) 69 Blood Pressure Source Automatic Cuff Pulse Oximetry (90-100 %) 97 Oxygen Delivery Method Nasal Cannula Oxygen Flow Rate 2 Document 10/10/23 14:15 JDF (Rec: 10/10/23 20:05 [facility] [id number]) Vital Signs - Monitor Interface Pulse Rate (60-100 beats/min) 94 Respiratory Rate (12-18 breaths/min) 23 H Blood Pressure (mmHg) 99/56 Blood Pressure Mean (mmHg) 70 Blood Pressure Source Automatic Cuff Pulse Oximetry (90-100 %) 94 Oxygen Delivery Method Nasal Cannula Oxygen Flow Rate 2 Document 10/10/23 14:30 JDF (Rec: 10/10/23 20:05 [facility] [id number]) Vital Signs - Monitor Interface Pulse Rate (60-100 beats/min) 97 Respiratory Rate (12-18 breaths/min) 16 Blood Pressure (mmHg) 101/51 Blood Pressure Mean (mmHg) 67 Blood Pressure Source Automatic Cuff Pulse Oximetry (90-100 %) 98 Oxygen Delivery Method Nasal Cannula Oxygen Flow Rate 2 Document 10/10/23 14:45 JDF (Rec: 10/10/23 20:05 [facility] [id number]) Vital Signs - Monitor Interface Pulse Rate (60-100 beats/min) 128 H Respiratory Rate (12-18 breaths/min) 22 H Blood Pressure (mmHg) 96/51 Blood Pressure Mean (mmHg) 66 Blood Pressure Source Automatic Cuff Pulse Oximetry (90-100 %) 97 Oxygen Delivery Method Nasal Cannula Oxygen Flow Rate 2 Document 10/10/23 15:00 JDF (Rec: 10/10/23 20:05 [facility] [id number]) Vital Signs - Monitor Interface Pulse Rate (60-100 beats/min) 96 Respiratory Rate (12-18 breaths/min) 16 Blood Pressure (mmHg) 102/54 Blood Pressure Mean (mmHg) 70 Blood Pressure Source Automatic Cuff Pulse Oximetry (90-100 %) 97 Oxygen Delivery Method Nasal Cannula Oxygen Flow Rate 2 Document 10/10/23 15:15 JDF (Rec: 10/10/23 20:05 J [id number]) Vital Signs - Monitor Interface Pulse Rate (60-100 beats/min) 104 H Respiratory Rate (12-18 breaths/min) 16 Blood Pressure (mmHg) 99/58 Blood Pressure Mean (mmHg) 71 Blood Pressure Source Automatic Cuff Pulse Oximetry (90-100 %) 98 Oxygen Delivery Method Nasal Cannula Oxygen Flow Rate 2 Document 10/10/23 15:30 JDF (Rec: 10/10/23 20:05 [facility] [id number]) Vital Signs - Monitor Interface Pulse Rate (60-100 beats/min) 97 Respiratory Rate (12-18 breaths/min) 19 H Blood Pressure (mmHg) 99/47 Blood Pressure Mean (mmHg) 64 Blood Pressure Source Automatic Cuff Pulse Oximetry (90-100 %) 96 Oxygen Delivery Method Nasal Cannula Oxygen Flow Rate 2 Document 10/10/23 15:45 JDF (Rec: 10/10/23 20:05 J [id number]) Vital Signs - Monitor Interface Pulse Rate (60-100 beats/min) 122 H Respiratory Rate (12-18 breaths/min) 21 H Blood Pressure (mmHg) 79/62 Blood Pressure Mean (mmHg) 67 Blood Pressure Source Automatic Cuff Oxygen Delivery Method Nasal Cannula Oxygen Flow Rate 2 Document 10/10/23 16:00 JDF (Rec: 10/10/23 20:05 [facility] [id number]) Vital Signs - Monitor Interface Pulse Rate (60-100 beats/min) 98 Respiratory Rate (12-18 breaths/min) 20 H Blood Pressure (mmHg) 129/68 Blood Pressure Mean (mmHg) 88 Blood Pressure Source Automatic Cuff Pulse Oximetry (90-100 %) 92 Oxygen Delivery Method Nasal Cannula Oxygen Flow Rate 2 Document 10/10/23 16:15 JDF (Rec: 10/10/23 20:05 [facility] [id number]) Vital Signs - Monitor Interface Pulse Rate (60-100 beats/min) 92 Respiratory Rate (12-18 breaths/min) 26 H Blood Pressure (mmHg) 116/61 Blood Pressure Mean (mmHg) 79 Blood Pressure Source Automatic Cuff Pulse Oximetry (90-100 %) 100 Oxygen Delivery Method Nasal Cannula Oxygen Flow Rate 2 Document 10/10/23 16:30 JDF (Rec: 10/10/23 20:05 [facility] [id number]) Vital Signs - Monitor Interface Pulse Rate (60-100 beats/min) 106 H Respiratory Rate (12-18 breaths/min) 21 H Blood Pressure (mmHg) 116/61 Blood Pressure Mean (mmHg) 79 Blood Pressure Source Automatic Cuff Pulse Oximetry (90-100 %) 93 Oxygen Delivery Method Nasal Cannula Oxygen Flow Rate 2 Document 10/10/23 16:45 JDF (Rec: 10/10/23 20:05 [facility] [id number]) Vital Signs - Monitor Interface Pulse Rate (60-100 beats/min) 95 Respiratory Rate (12-18 breaths/min) 15 Blood Pressure (mmHg) 116/61 Blood Pressure Mean (mmHg) 79 Blood Pressure Source Automatic Cuff Pulse Oximetry (90-100 %) 99 Oxygen Delivery Method Nasal Cannula Oxygen Flow Rate 2 Document 10/10/23 17:00 JDF (Rec: 10/10/23 20:05 [facility] [id number]) Vital Signs - Monitor Interface Pulse Rate (60-100 beats/min) 97 Respiratory Rate (12-18 breaths/min) 18 Blood Pressure (mmHg) 116/61 Blood Pressure Mean (mmHg) 79 Blood Pressure Source Automatic Cuff Pulse Oximetry (90-100 %) 100 Oxygen Delivery Method Nasal Cannula Oxygen Flow Rate 2 Document 10/10/23 17:15 JDF (Rec: 10/10/23 20:05 [facility] [id number]) Vital Signs - Monitor Interface Pulse Rate (60-100 beats/min) 89 Respiratory Rate (12-18 breaths/min) 17 Blood Pressure (mmHg) 111/55 Blood Pressure Mean (mmHg) 73 Blood Pressure Source Automatic Cuff Pulse Oximetry (90-100 %) 100 Oxygen Delivery Method Nasal Cannula Oxygen Flow Rate 2 Document 10/10/23 17:30 JDF (Rec: 10/10/23 20:05 [facility] [id number]) Vital Signs - Monitor Interface Pulse Rate (60-100 beats/min) 94 Respiratory Rate (12-18 breaths/min) 18 Blood Pressure (mmHg) 111/55 Blood Pressure Mean (mmHg) 73 Blood Pressure Source Automatic Cuff Pulse Oximetry (90-100 %) 98 Oxygen Delivery Method Nasal Cannula Oxygen Flow Rate 2 Document 10/10/23 17:45 JDF (Rec: 10/10/23 20:05 [facility] [id number]) Vital Signs - Monitor Interface Pulse Rate (60-100 beats/min) 88 Respiratory Rate (12-18 breaths/min) 15 Blood Pressure (mmHg) 111/55 Blood Pressure Mean (mmHg) 73 Blood Pressure Source Automatic Cuff Pulse Oximetry (90-100 %) 97 Oxygen Delivery Method Nasal Cannula Oxygen Flow Rate 2 Document 10/10/23 18:00 JDF (Rec: 10/10/23 20:05 [facility] [id number]) Vital Signs - Monitor Interface Pulse Rate (60-100 beats/min) 92 Respiratory Rate (12-18 breaths/min) 16 Blood Pressure (mmHg) 111/55 Blood Pressure Mean (mmHg) 73 Blood Pressure Source Automatic Cuff Pulse Oximetry (90-100 %) 95 Oxygen Delivery Method Nasal Cannula Oxygen Flow Rate 2 Document 10/10/23 18:15 JDF (Rec: 10/10/23 20:05 [facility] [id number]) Vital Signs - Monitor Interface Pulse Rate (60-100 beats/min) 89 Respiratory Rate (12-18 breaths/min) 16 Blood Pressure (mmHg) 95/60 Blood Pressure Mean (mmHg) 71 Blood Pressure Source Automatic Cuff Pulse Oximetry (90-100 %) 95 Oxygen Delivery Method Nasal Cannula Oxygen Flow Rate 2 Document 10/10/23 18:30 JDF (Rec: 10/10/23 20:05 J [id number]) Vital Signs - Monitor Interface Pulse Rate (60-100 beats/min) 91 Respiratory Rate (12-18 breaths/min) 25 H Blood Pressure (mmHg) 95/60 Blood Pressure Mean (mmHg) 71 Blood Pressure Source Automatic Cuff Oxygen Delivery Method Nasal Cannula Oxygen Flow Rate 2 Document 10/10/23 18:45 JDF (Rec: 10/10/23 20:05 J [id number]) Vital Signs - Monitor Interface Pulse Rate (60-100 beats/min) 82 Respiratory Rate (12-18 breaths/min) 24 H Blood Pressure (mmHg) 95/60 Blood Pressure Mean (mmHg) 71 Blood Pressure Source Automatic Cuff Pulse Oximetry (90-100 %) 97 Oxygen Delivery Method Nasal Cannula Oxygen Flow Rate 2 Document 10/10/23 19:00 JDF (Rec: 10/10/23 20:05 J [id number]) Vital Signs - Monitor Interface Pulse Rate (60-100 beats/min) 90 Respiratory Rate (12-18 breaths/min) 19 H Blood Pressure (mmHg) 95/60 Blood Pressure Mean (mmHg) 71 Blood Pressure Source Automatic Cuff Pulse Oximetry (90-100 %) 91 Oxygen Delivery Method Nasal Cannula Oxygen Flow Rate 2 Document 10/10/23 19:15 JDF (Rec: 10/10/23 20:05 J [id number]) Vital Signs - Monitor Interface Pulse Rate (60-100 beats/min) 91 Respiratory Rate (12-18 breaths/min) 20 H Blood Pressure (mmHg) 97/54 Blood Pressure Mean (mmHg) 68 Blood Pressure Source Automatic Cuff Pulse Oximetry (90-100 %) 97 Oxygen Delivery Method Nasal Cannula Oxygen Flow Rate 2 Document 10/10/23 19:30 JDF (Rec: 10/10/23 20:05 J [id number]) Vital Signs - Monitor Interface Pulse Rate (60-100 beats/min) 106 H Respiratory Rate (12-18 breaths/min) 21 H Blood Pressure (mmHg) 97/54 Blood Pressure Mean (mmHg) 68 Blood Pressure Source Automatic Cuff Pulse Oximetry (90-100 %) 98 Oxygen Delivery Method Nasal Cannula Oxygen Flow Rate 2 Document 10/10/23 19:45 JDF (Rec: 10/10/23 20:05 [id number]) Vital Signs - Monitor Interface Pulse Rate (60-100 beats/min) 87 Respiratory Rate (12-18 breaths/min) 18 Blood Pressure (mmHg) 97/54 Blood Pressure Mean (mmHg) 68 Blood Pressure Source Automatic Cuff Pulse Oximetry (90-100 %) 97 Oxygen Delivery Method Nasal Cannula Oxygen Flow Rate 2 Document 10/10/23 20:00 PF (Rec: 10/10/23 22:17 PF [id number]) Vital Signs - Monitor Interface Temperature (97.6 F-99.6 F) 98.2 F Temperature Source Axillary Pulse Rate (60-100 beats/min) 84 Respiratory Rate (12-18 breaths/min) 20 H Blood Pressure (mmHg) 97/54 Blood Pressure Mean (mmHg) 68 Pulse Oximetry (90-100 %) 97 Document 10/10/23 21:00 PF (Rec: 10/10/23 22:17 PF [id number]) Vital Signs - Monitor Interface Pulse Rate (60-100 beats/min) 114 H Respiratory Rate (12-18 breaths/min) 19 H Blood Pressure (mmHg) 116/58 Blood Pressure Mean (mmHg) 77 Pulse Oximetry (90-100 %) 85 L Document 10/10/23 22:00 PF (Rec: 10/10/23 22:17 PF [id number]) Vital Signs - Monitor Interface Pulse Rate (60-100 beats/min) 92 Respiratory Rate (12-18 breaths/min) 28 H Blood Pressure (mmHg) 123/64 Blood Pressure Mean (mmHg) 83 Pulse Oximetry (90-100 %) 99 Document 10/10/23 23:00 PF (Rec: 10/11/23 02:23 PF [id number]) Vital Signs - Monitor Interface Pulse Rate (60-100 beats/min) 78 Respiratory Rate (12-18 breaths/min) 26 H Blood Pressure (mmHg) 105/61 Blood Pressure Mean (mmHg) 75 Pulse Oximetry (90-100 %) 88 L Document 10/11/23 00:00 PF (Rec: 10/11/23 02:23 PF [id number]) Vital Signs - Monitor Interface Temperature (97.6 F-99.6 F) 98.4 F Temperature Source Oral Pulse Rate (60-100 beats/min) 127 H Respiratory Rate (12-18 breaths/min) 26 H Blood Pressure (mmHg) 111/57 Blood Pressure Mean (mmHg) 75 Document 10/11/23 01:00 PF (Rec: 10/11/23 02:23 PF [id number]) Vital Signs - Monitor Interface Pulse Rate (60-100 beats/min) 84 Respiratory Rate (12-18 breaths/min) 23 H Blood Pressure (mmHg) 93/46 Blood Pressure Mean (mmHg) 61 Pulse Oximetry (90-100 %) 96 Document 10/11/23 02:00 PF (Rec: 10/11/23 02:23 PF [id number]) Vital Signs - Monitor Interface Pulse Rate (60-100 beats/min) 116 H Respiratory Rate (12-18 breaths/min) 19 H Blood Pressure (mmHg) 95/48 Blood Pressure Mean (mmHg) 63 Document 10/11/23 03:00 PF (Rec: 10/11/23 06:49 PF [id number]) Vital Signs - Monitor Interface Pulse Rate (60-100 beats/min) 88 Respiratory Rate (12-18 breaths/min) 20 H Blood Pressure (mmHg) 105/54 Blood Pressure Mean (mmHg) 71 Pulse Oximetry (90-100 %) 97 Document 10/11/23 04:00 PF (Rec: 10/11/23 06:49 PF [id number]) Vital Signs - Monitor Interface Temperature (97.6 F-99.6 F) 97.4 F L Pulse Rate (60-100 beats/min) 82 Respiratory Rate (12-18 breaths/min) 19 H Blood Pressure (mmHg) 115/62 Blood Pressure Mean (mmHg) 79 Pulse Oximetry (90-100 %) 95 Oxygen Delivery Method Nasal Cannula Oxygen Flow Rate 2 Document 10/11/23 09:13 (Rec: 10/11/23 10:42 [id number]) Vital Signs - Monitor Interface Pulse Rate (60-100 beats/min) 109 H Respiratory Rate (12-18 breaths/min) 16 Pulse Oximetry (90-100 %) 91 Document 10/11/23 09:30 (Rec: 10/11/23 10:42 [id number]) Vital Signs - Monitor Interface Temperature (97.6 F-99.6 F) 97.8 F Temperature Source Temporal Artery Scan Pulse Rate (60-100 beats/min) 105 H Respiratory Rate (12-18 breaths/min) 14 Blood Pressure (mmHg) 108/64 Blood Pressure Mean (mmHg) 78 Blood Pressure Source Automatic Cuff Blood Pressure Position Sitting Pulse Oximetry (90-100 %) 92 Oxygen Delivery Method Nasal Cannula Oxygen Flow Rate 2 Document 10/11/23 10:00 (Rec: 10/11/23 10:42 [id number]) Vital Signs - Monitor Interface Pulse Rate (60-100 beats/min) 117 H Respiratory Rate (12-18 breaths/min) 20 H Blood Pressure (mmHg) 108/64 Blood Pressure Mean (mmHg) 78 Document 10/11/23 10:15 (Rec: 10/11/23 13:04 [id number]) Vital Signs - Monitor Interface Pulse Rate (60-100 beats/min) 108 H Respiratory Rate (12-18 breaths/min) 20 H Blood Pressure (mmHg) 120/67 Blood Pressure Mean (mmHg) 84 Pulse Oximetry (90-100 %) 97 Document 10/11/23 10:30 (Rec: 10/11/23 13:04 [id number]) Vital Signs - Monitor Interface Pulse Rate (60-100 beats/min) 109 H Respiratory Rate (12-18 breaths/min) 21 H Blood Pressure (mmHg) 118/59 Blood Pressure Mean (mmHg) 78 Document 10/11/23 10:45 (Rec: 10/11/23 13:04 [id number]) Vital Signs - Monitor Interface Pulse Rate (60-100 beats/min) 91 Respiratory Rate (12-18 breaths/min) 19 H Blood Pressure (mmHg) 88/65 Blood Pressure Mean (mmHg) 72 Pulse Oximetry (90-100 %) 97 Document 10/11/23 11:00 (Rec: 10/11/23 13:04 [id number]) Vital Signs - Monitor Interface Pulse Rate (60-100 beats/min) 84 Respiratory Rate (12-18 breaths/min) 27 H Blood Pressure (mmHg) 116/85 Blood Pressure Mean (mmHg) 95 Pulse Oximetry (90-100 %) 100 Document 10/11/23 11:15 (Rec: 10/11/23 13:04 [id number]) Vital Signs - Monitor Interface Pulse Rate (60-100 beats/min) 94 Respiratory Rate (12-18 breaths/min) 24 H Blood Pressure (mmHg) 121/86 Blood Pressure Mean (mmHg) 97 Document 10/11/23 11:30 (Rec: 10/11/23 13:04 [id number]) Vital Signs - Monitor Interface Pulse Rate (60-100 beats/min) 94 Respiratory Rate (12-18 breaths/min) 19 H Blood Pressure (mmHg) 122/87 Blood Pressure Mean (mmHg) 98 Pulse Oximetry (90-100 %) 100 Document 10/11/23 11:45 (Rec: 10/11/23 13:04 [id number]) Vital Signs - Monitor Interface Pulse Rate (60-100 beats/min) 102 H Respiratory Rate (12-18 breaths/min) 14 Blood Pressure (mmHg) 119/82 Blood Pressure Mean (mmHg) 94 Pulse Oximetry (90-100 %) 100 Document 10/11/23 12:00 (Rec: 10/11/23 13:04 [id number]) Vital Signs - Monitor Interface Pulse Rate (60-100 beats/min) 96 Respiratory Rate (12-18 breaths/min) 20 H Blood Pressure (mmHg) 124/70 Blood Pressure Mean (mmHg) 88 Document 10/11/23 12:15 (Rec: 10/11/23 13:04 [id number]) Vital Signs - Monitor Interface Pulse Rate (60-100 beats/min) 86 Respiratory Rate (12-18 breaths/min) 13 Blood Pressure (mmHg) 99/71 Blood Pressure Mean (mmHg) 80 Pulse Oximetry (90-100 %) 99 Document 10/11/23 12:30 (Rec: 10/11/23 13:04 [id number]) Vital Signs - Monitor Interface Pulse Rate (60-100 beats/min) 96 Respiratory Rate (12-18 breaths/min) 19 H Blood Pressure (mmHg) 112/69 Blood Pressure Mean (mmHg) 83 Pulse Oximetry (90-100 %) 97 Document 10/11/23 12:45 (Rec: 10/11/23 13:04 [id number]) Vital Signs - Monitor Interface Temperature (97.6 F-99.6 F) 97.8 F Temperature Source Temporal Artery Scan Pulse Rate (60-100 beats/min) 90 Respiratory Rate (12-18 breaths/min) 15 Blood Pressure (mmHg) 115/70 Blood Pressure Mean (mmHg) 85 Pulse Oximetry (90-100 %) 93 Oxygen Flow Rate 2 Document 10/11/23 13:17 (Rec: 10/11/23 13:18 [id number]) Vital Signs - Monitor Interface Pulse Rate (60-100 beats/min) 101 H Respiratory Rate (12-18 breaths/min) 22 H Blood Pressure (mmHg) 116/76 Blood Pressure Mean (mmHg) 89 Blood Pressure Source Automatic Cuff Blood Pressure Position Sitting Pulse Oximetry (90-100 %) 92 Oxygen Delivery Method Nasal Cannula Oxygen Flow Rate 2 Wound Assessment Start: 10/10/23 11:33 Freq: QSHIFT Status: Active Protocol: WOUND Document 10/10/23 20:00 PF (Rec: 10/10/23 22:18 PF [id number]) Wound Assessment Number of Saline Flushes Used 2
[2023-10-11] MEDS: amiodarone 200 mg Tablet 400 MG PO (17:45)
[2023-10-11] MEDS: cefTRIAXone 1,000 MG in sodium chloride 0.9% (plus) 50 ML 100 MG IV (17:46)
[2023-10-12] VITALS (43 sets, daily range): BP systolic 92–142; BP diastolic 53–75; PULSE 74–135; RESP 13–36; TEMP 36.5–36.8; O2SAT 85–100; BMI 28.7
[2023-10-12] MEDS: ipratropium-albuterol 3 mL Neb INHALATION ×4 (02:55→19:15)
[2023-10-12 03:59] LABS: Basophils % 0.2 %; Hematocrit 30.2 % (37-53); Lymphocytes # 0.7 10^3/uL (0.8-4.8); Mean Corpuscular HGB Conc 32.1 g/dL (30-55); Mean Corpuscular Hemoglobin 30.4 pg (27-33); Mean Corpuscular Volume 94.7 fl (82-101); Mean Platelet Volume 9.6 fL (7.4-10.4); Monocytes # 0.5 10^3/uL (0.2-0.9); Monocytes % 8.7 %; Neutrophils # 4.73 10^3/uL (1.8-7.7); Neutrophils % 78.6 %; Nucleated Red Blood Cells % 0 %; Platelet Count 293 10^3/cmm (157-399); Red Blood Count 3.19 10^6/uL (3.85-5.65); Red Cell Distribution Width 19.6 % (12.1-15.1); White Blood Count 6.01 10^3/uL (3.29-11.43)
[2023-10-12 04:31] LABS: Anion Gap 16.1 (5-19); Blood Urea Nitrogen 13 mg/dL (8-23); Calcium 8.5 mg/dL (8.5-10.5); Carbon Dioxide 26 mmol/L (22-29); Chloride 103 mmol/L (98-107); Creatinine Clr Calc Pharmacy 110.0406; Glomerular Filtration Rate 95.8 mL/min (90-130); Glucose 134 mg/dL (65-115); Osmolality Calculated 294 mOsm/kg (285-295); Potassium 4.1 mmol/L (3.5-5.1); Sodium 141 mmol/L (136-145)
[2023-10-12] MEDS: budesonide 0.5 mg/2 mL Neb INHALATION ×2 (07:39→19:15)
[2023-10-12] MEDS: dexamethasone 4 mg Tablet PO ×2 (08:48→17:36)
[2023-10-12] MEDS: docusate sodium 100 mg Capsule PO ×2 (08:49→17:36)
[2023-10-12] MEDS: amiodarone 200 mg Tablet 400 MG PO ×2 (08:49→17:36)
[2023-10-12] MEDS: rivaroxaban 10 mg Tablet 20 MG PO (08:49)
[2023-10-12] MEDS: pantoprazole 40 mg SDV IVP (08:49)
[2023-10-12] MEDS: morphine ER (12 HR) 30 mg tablet PO ×2 (08:50→21:15)
[2023-10-12] MEDS: midodrine 5 mg TABLET PO ×3 (08:51→21:15)
[2023-10-12] MEDS: folic acid 1 mg Tablet PO (08:51)
--- NOTE | 2023-10-12 08:55 | P.PN_ITS ---
Subjective 2 Subjective: Jaleel reports he feels better, and stronger. He believes his urinary symptoms are improved. No chest pain. Does not feel short of breath. Currently on 1 L of oxygen. Medications: Reviewed: Yes Vitals/I&O/Wt Last Vital Signs Temp 98.2 F 10/12/23 08:00 Pulse 109 H 10/12/23 08:00 Resp 33 H 10/12/23 08:00 BP 126/64 10/12/23 08:00 Pulse Ox 98 10/12/23 08:00 O2 Del Method Room Air 10/12/23 08:00 O2 Flow Rate 1 10/12/23 07:40 10/11/23 10/12/23 10/12/23 22:59 06:59 14:59 Intake Total 370 / 1169.207 200 / 1369.207 240 / 240 Output Total 300 / 300 300 / 600 Balance 70 / 869.207 -100 / 769.207 240 / 240 Weight last 48 hrs Weight 102.013 kg Weight 99.881 kg Weight 100.97 kg Weight 98.974 kg Physical Exam 2 Narrative: General exam is white male, no distress Neck is supple no lymphadenopathy thyromegaly Cardiovascular irregular, irregular. Telemetry is still showing some significantly fast heart rates 110s to 115s when up in chair. This will drift down to 90s when sitting. Lungs clear, diminished breath sounds are noted bilaterally Abdomen is soft with positive bowel sounds. No obvious organomegaly Extremities no sinus clubbing edema Data 10/12/23 03:27 10/12/23 03:27 Micro: Microbiology 10/10/23 12:47 Blood Culture - Preliminary Blood NEGATIVE TO DATE 10/10/23 12:52 Blood Culture - Preliminary Blood NEGATIVE TO DATE A&P Assessment and plan (1) Atrial fibrillation with rapid ventricular response: Patient presents with atrial fibrillation with rapid ventricular response His metoprolol recently got decreased secondary to lower blood pressures. His digoxin was recently increased to compensate for lower metoprolol dosing. However, digoxin level is now elevated. Digoxin discontinued on admission He has known nonischemic cardiomyopathy with last EF around 45% in September Used amiodarone drip on admission. This is changed to amiodarone 4 mg twice daily Increase metoprolol today to 25 mg twice daily Magnesium and TSH has been checked and normal No reason to repeat echocardiogram Resume low-dose metoprolol Continue anticoagulation with Xarelto (2) Hypoxia: Patient has been requiring 2 L of oxygen He has known COPD, and metastatic lung cancer He has no chest pain currently, has not become progressively hypoxic, and his saturation is 99% on 2 L currently. I do not suspect a PE considering these factors, and he is already on Xarelto which she reports compliance with. Chest x-ray has been done showing no infiltrate At this point wean oxygen as tolerated, provide budesonide twice daily, DuoNeb 4 times daily Although he has slight peripheral edema, I do not suspect a significant heart failure playing a role currently. (3) Hypotension: Patient was found to be hypotensive with position changes by the nurse According to family this has been going on for several weeks This may have to do with his underlying malignancy, poor performance, decreased p.o. intake. At this point continue his dexamethasone twice daily Continue midodrine 5 mg 3 times daily and titrate as needed Orthostatic blood pressures twice daily. These appear improved Blood cultures were obtained At this point secondary to lower blood pressures I will have discontinued his Entresto, Aldactone (4) UTI (urinary tract infection): Rocephin initiated on admission Await urine culture Consider Flomax initiation as he has some history of urinary retention. However, will want to make sure he is not orthostatic prior to initiating this. However, urinary symptoms are improving without it CBC, BMP in the morning Plan Adenocarcinoma lung with brain metastasis. Currently receiving palliative chemotherapy. Currently poor performance characteristics. Will follow back up with oncology following this hospitalization Chronic cancer related pain. Will try to continue his morphine. COPD, see treatment under hypoxia History of CHF, currently appears compensated Other medical problems as listed under past medical history Allow natural , discussed with patient and family Xarelto will suffice for DVT prophylaxis along with SCDs Requires adjustment of medication for heart rate prior to discharge Attestations 2 Medical Necessity Statement*: Needs continued hospitalization for further adjustment of medication secondary to A-fib with RVR, treatment of UTI with IV antibiotics Diagnoses Atrial fibrillation with rapid ventricular response I48.91 Hypoxia R09.02 Hypotension I95.9 UTI (urinary tract infection) N39.0 Time Spent (min) 23
[2023-10-12] MEDS: metoprolol tartrate 25 mg Tablet PO ×2 (09:58→17:35)
--- NOTE | 2023-10-12 12:04 | PC.SOCIAL ---
Pg 2 IMM Explained to pt & family Pg 2 IMM. No questions voiced. Provided pt a copy. Initialed, dated, & timed a copy & placed in chart.
--- NOTE | 2023-10-12 16:38 | PC.NURSE ---
Patient arrived on floor at 1431. TR band inflated on right radial. No hematoma noted at that time.TR band removed at 1612. No hematoma. Patient talking with son at bedside.
[2023-10-12] MEDS: cefTRIAXone 1,000 MG in sodium chloride 0.9% (plus) 50 ML 100 MG IV (18:21)
[2023-10-13] VITALS (10 sets, daily range): BP systolic 96–145; BP diastolic 52–81; PULSE 73–122; RESP 15–21; TEMP 36.6–37; O2SAT 95–98
[2023-10-13 06:12] LABS: Basophils % 0.1 %; Eosinophils % 0.1 %; Hematocrit 31.6 % (37-53); Lymphocytes # 0.8 10^3/uL (0.8-4.8); Lymphocytes % 11.8 %; Mean Corpuscular HGB Conc 32.9 g/dL (30-55); Mean Corpuscular Hemoglobin 31.7 pg (27-33); Mean Corpuscular Volume 96.3 fl (82-101); Mean Platelet Volume 9.5 fL (7.4-10.4); Monocytes # 0.6 10^3/uL (0.2-0.9); Monocytes % 8.6 %; Neutrophils # 5.34 10^3/uL (1.8-7.7); Neutrophils % 77.9 %; Nucleated Red Blood Cells % 0 %; Platelet Count 335 10^3/cmm (157-399); Red Blood Count 3.28 10^6/uL (3.85-5.65); Red Cell Distribution Width 20.2 % (12.1-15.1); White Blood Count 6.86 10^3/uL (3.29-11.43)
[2023-10-13 06:27] LABS: Anion Gap 15.2 (5-19); Blood Urea Nitrogen 13 mg/dL (8-23); Calcium 9.2 mg/dL (8.5-10.5); Carbon Dioxide 28 mmol/L (22-29); Chloride 102 mmol/L (98-107); Creatinine Clr Calc Pharmacy 97.2972; Glomerular Filtration Rate 83.7 mL/min (90-130); Glucose 106 mg/dL (65-115); Osmolality Calculated 293 mOsm/kg (285-295); Potassium 4.2 mmol/L (3.5-5.1); Sodium 141 mmol/L (136-145)
[2023-10-13] MEDS: ipratropium-albuterol 3 mL Neb INHALATION (08:22)
[2023-10-13] MEDS: budesonide 0.5 mg/2 mL Neb INHALATION (08:22)
--- NOTE | 2023-10-13 09:19 | P.DS_ITS ---
Discharge Providers Date of Admission: 10/10/23 11:17 Date of Discharge: October 13, 2023 Attending Provider at Admission: Nicholas Pierre MD Attending Provider at Discharge: Ivania Bello MD Primary Care Provider: Orion Summers Diagnoses at Discharge Discharge Diagnosis (1) Atrial fibrillation with rapid ventricular response: Status: Acute (2) Hypoxia: Status: Acute (3) Hypotension: Status: Acute (4) UTI (urinary tract infection): Status: Acute Reason for Visit Reason for Visit: hypotension Hospital Course Hospital Course 67-year male with chronic A-fib, widespread adenocarcinoma lung with brain metastatic lesions presented with A-fib RVR generalized weakness poor performance and occasional hypotension. She was found to have UTI as well. He was started on antibiotics along amiodarone. IV amiodarone converted him to sinus rhythm. Related to hypotension we have discontinued antihypertensive regimen with the exception of metoprolol. I will give him amiodarone 400 mg twice daily which can be switched to 400 mg daily after 7 days and then 400 mg daily onwards. Patient is already on Xarelto for his history of A-fib. Midodrine added for hypotension related to orthostasis. Midodrine is considered safe at this time as he is not showing signs of heart failure or bradycardia. Patient uses 2 L of oxygen at baseline. He may continue his palliative chemotherapy. At baseline not very active. CT scan of head has not shown any worsening of metastatic lesions. Magnesium and TSH normal. We have discontinued his digoxin. CODE STATUS: DNR/DNI Secondary to low blood pressure I will discontinue spironolactone and Entresto Physical Exam Narrative: Euvolemic Currently on 2 L 80 mg GCS 15 Orthostatic hypotension noted Awake and alert DNR/DNI Discharge Data Studies Completed and Pending Completed Studies During Hospitalization Category Date Time Status XR chest 1V portable [id number] Routine Exams 10/10/23 11:55 Completed Pending at discharge Category Date Time Status Blood Culture Stat Lab 10/10/23 12:52 Results Radiology Impressions Chest X-Ray 10/10/23 11:55 IMPRESSION: No acute findings. Laboratory Results WBC 6.86 10^3/uL (3.29-11.43) 10/13/23 05:15 RBC 3.28 10^6/uL (3.85-5.65) L 10/13/23 05:15 Hgb 10.40 g/dL (11.27-16.99) L 10/13/23 05:15 Hct 31.6 % (37-53) L 10/13/23 05:15 MCV 96.3 fl (82-101) 10/13/23 05:15 MCH 31.7 pg (27-33) 10/13/23 05:15 MCHC 32.9 g/dL (30-55) 10/13/23 05:15 RDW 20.2 % (12.1-15.1) H 10/13/23 05:15 Plt Count 335 10^3/cmm (157-399) 10/13/23 05:15 MPV 9.5 fL (7.4-10.4) 10/13/23 05:15 Neut % (Auto) 77.9 % 10/13/23 05:15 Lymph % (Auto) 11.8 % 10/13/23 05:15 [place] % (Auto) 8.6 % 10/13/23 05:15 Eos % (Auto) 0.1 % 10/13/23 05:15 Baso % (Auto) 0.1 % 10/13/23 05:15 Neut # (Auto) 5.34 10^3/uL (1.8-7.7) 10/13/23 05:15 Lymph # (Auto) 0.8 10^3/uL (0.8-4.8) 10/13/23 05:15 [place] # (Auto) 0.6 10^3/uL (0.2-0.9) 10/13/23 05:15 Eos # (Auto) 0.0 10^3/uL (0.0-0.8) 10/13/23 05:15 Baso # (Auto) 0.0 10^3/uL (0.0-0.1) 10/13/23 05:15 Nucleated RBC % (auto) 0 % 10/13/23 05:15 Nucleated RBCs # 0.0 /100WBC 10/13/23 05:15 Sodium 141 mmol/L (136-145) 10/13/23 05:15 Potassium 4.2 mmol/L (3.5-5.1) 10/13/23 05:15 Chloride 102 mmol/L (98-107) 10/13/23 05:15 Carbon Dioxide 28 mmol/L (22-29) 10/13/23 05:15 Anion Gap 15.2 (5-19) 10/13/23 05:15 BUN 13 mg/dL (8-23) 10/13/23 05:15 Creatinine 0.9 mg/dL (0.7-1.2) 10/13/23 05:15 GFR Calculation 83.7 mL/min (90-130) L 10/13/23 05:15 Glucose 106 mg/dL (65-115) 10/13/23 05:15 Calculated Osmolality 293 mOsm/kg (285-295) 10/13/23 05:15 Calcium 9.2 mg/dL (8.5-10.5) 10/13/23 05:15 Magnesium 2.0 mg/dL (1.7-2.3) 10/13/23 05:15 Total Bilirubin 0.3 mg/dL (0.15-1.2) 10/11/23 03:58 AST 15 U/L (0-40) 10/11/23 03:58 ALT 14 U/L (0-41) 10/11/23 03:58 Alkaline Phosphatase 76 U/L (40-130) 10/11/23 03:58 Total Protein 5.3 g/dL (6.6-8.7) L 10/11/23 03:58 Albumin 3.1 g/dL (3.5-5.2) L 10/11/23 03:58 Globulin 2.2 g/dL (1.3-4.6) 10/11/23 03:58 TSH 2.18 uIU/mL (0.27-4.20) 10/10/23 08:55 Urine Color Yellow (Yellow) 10/10/23 15:49 Urine Appearance Cloudy (CLEAR) A 10/10/23 15:49 Urine pH 5 (5-7) 10/10/23 15:49 Ur Specific [place] 1.015 (1.005-1.030) 10/10/23 15:49 Urine Protein 1+ (Negative) H 10/10/23 15:49 Urine Glucose (UA) Norm (Normal) 10/10/23 15:49 Urine Ketones 1+ (Negative) H 10/10/23 15:49 Urine Blood 3+ (Negative) H 10/10/23 15:49 Urine Nitrate Negative (Negative) 10/10/23 15:49 Urine Bilirubin Neg (Negative) 10/10/23 15:49 Urine Urobilinogen Norm mg/dL (Negative) 10/10/23 15:49 Ur Leukocyte Esterase 2+ (Negative) H 10/10/23 15:49 Urine RBC 5-10 /hpf (0-2) H 10/10/23 15:49 Urine WBC 80-100 /hpf (0-5) H 10/10/23 15:49 Ur Squamous Epith Cells 0-4 /hpf (0-5) H 10/10/23 15:49 Amorphous Sediment Not Reportable 10/10/23 15:49 Urine Bacteria 3+ /hpf (NONE) H 10/10/23 15:49 Hyaline Casts 5-10 /lpf H 10/10/23 15:49 Fine Granular Casts 10-15 /lpf H 10/10/23 15:49 Other Casts Wbc cast 5-10 /lpf 10/10/23 15:49 Urine Mucus 1+ /hpf 10/10/23 15:49 Digoxin 1.3 ng/mL (0.6-1.2) H 10/11/23 03:58 Vitals Last Vital Signs Temp 97.9 F 10/13/23 07:15 Pulse 93 10/13/23 08:32 Resp 16 10/13/23 08:22 BP 132/77 10/13/23 07:16 Pulse Ox 95 10/13/23 08:22 O2 Del Method Nasal Cannula 10/13/23 08:22 O2 Flow Rate 2 10/13/23 08:22 Discharge Plan Discharge Patient Disposition: Home Condition: Stable Prescriptions: New midodrine 5 mg Tablet 5 mg PO BID PRN (Reason: Blood pressure below 100/80) Qty: 60 0RF amiodarone 400 mg tablet 200 mg PO BID Qty: 120 4RF Rx Instructions: 400 mg twice a day for 7 days then 400 mg daily Continued multivitamin Tablet 1 tab PO DAILY cholecalciferol (vitamin D3) 25 mcg (1,000 unit) capsule 25 mcg PO DAILY prochlorperazine maleate [Compazine] 10 mg tablet 10 mg PO Q4H PRN (Reason: nausea and vomiting) Qty: 30 3RF lorazepam 1 mg tablet 1 mg PO Q4H PRN (Reason: severe nausea) Qty: 30 3RF miconazole nitrate [Antifungal (miconazole)] 2 % cream 1 applic topical BID Qty: 28 3RF lidocaine-prilocaine 2.5-2.5 % cream 1 applic topical .COMPLEX Qty: 30 3RF Rx Instructions: Apply quarter size amount 30-45 minutes prior to port access, cover with cellophane (DME) Portable oxygen concentrator and supplies See Rx Instructions .Route .MEDSUPPLY Qty: 1 0RF Rx Instructions: As directed triamcinolone acetonide 0.1 % cream 1 applic topical TID Qty: 15 0RF nystatin 100,000 unit/gram cream 1 applic topical TID Qty: 15 0RF Xarelto 20 mg tablet 20 mg PO DAILY Qty: 90 3RF Rx Instructions: must administer with evening meal lactulose 10 gram/15 mL solution 10 g PO BID PRN (Reason: constipation) Qty: 473 1RF pantoprazole [Protonix] 40 mg tablet,delayed release (DR/EC) 40 mg PO DAILY Qty: 30 3RF ondansetron HCl 4 mg tablet 4 mg PO Q6H PRN (Reason: nausea and vomiting) Qty: 30 3RF folic acid 1 mg tablet 1 mg PO DAILY Qty: 30 3RF Rx Instructions: start prior to chemotherapy treatment docusate sodium [Colace] 100 mg capsule 100 mg PO BID Qty: 60 3RF Stiolto Respimat 2.5-2.5 mcg/actuation mist 2 puff inhalation DAILY Qty: 4 6RF morphine 30 mg tablet extended release 30 mg PO Q12H 30 Days Qty: 60 0RF Discontinued metoprolol succinate 100 mg tablet extended release 24 hr 100 mg PO BID Qty: 180 3RF Hold Instructions: until seen by doctor Rx Instructions: Take in addition to 25mg tab BID to equal 125mg BID metoprolol succinate 25 mg tablet extended release 24 hr 25 mg PO BID Qty: 180 3RF Rx Instructions: Take in addition to 100mg tab BID to equal 125mg BID digoxin 125 mcg (0.125 mg) tablet 125 mcg PO DAILY Qty: 90 3RF spironolactone 25 mg tablet 12.5 mg PO DAILY Qty: 90 1RF Entresto 49-51 mg tablet 1 tab PO BID Qty: 180 1RF Discharge Orders: Discharge Order (Routine); Ordered 10/13/23 Ordered By: Ivania Bello Referrals: Orion Summers [Primary Care Provider] - 4-7 days Swathi Addison FNP [Nurse Practitioner] - 4-7 days Discharge Diet: Cardiac Discharge Activity: Increase activity as tolerated Patient Instructions: Heart Failure (DC), CHF Stoplight, Opioid Safety Discharge Attestations Time Spent in Discharge Care*: greater than 30 min Quality Metrics Clinical Quality Measures [ No reported AMI, CVA or VTE this stay] Coding Level of Care Code Acute Code for Chg Fwd Diagnoses Atrial fibrillation with rapid ventricular response I48.91 Hypoxia R09.02 Hypotension I95.9 UTI (urinary tract infection) N39.0
[2023-10-13] MEDS: rivaroxaban 10 mg Tablet 20 MG PO (09:23)
[2023-10-13] MEDS: midodrine 5 mg TABLET PO (09:23)
[2023-10-13] MEDS: dexamethasone 4 mg Tablet PO (09:23)
[2023-10-13] MEDS: amiodarone 200 mg Tablet 400 MG PO (09:24)
[2023-10-13] MEDS: folic acid 1 mg Tablet PO (09:24)
[2023-10-13] MEDS: pantoprazole 40 mg SDV IVP (09:24)
[2023-10-13] MEDS: docusate sodium 100 mg Capsule PO (09:24)
[2023-10-13] MEDS: metoprolol tartrate 25 mg Tablet PO (09:24)
[2023-10-13] MEDS: morphine ER (12 HR) 30 mg tablet PO (09:24)
--- NOTE | 2023-10-13 09:38 | PC.NURSE ---
Noted 2 orders for LR 500ml IV bolus to be given. Got with Dr. Bello to verify if he wanted 500 or 1000 ml to be given. He voalted back he wanted only 500ml bolus.
[2023-10-13] MEDS: lactated ringers 500 ML 999 ML IV (09:45)
--- NOTE | 2023-10-13 10:54 | PC.NURSE ---
Deaccessed port after infusing 5ml Heparin flush. Pt tolerated well
--- NOTE | 2023-10-13 11:30 | PC.NURSE ---
Discharge Note Patient discharged to [home] via [w/c to POV] accompanied by [family]. Discharge instructions reviewed with patient and/or representative personal service. Mobile pharmacy medications and/or prescriptions provided. Belongings returned.
== END 2023-10-13 11:34 | disposition home or self-care (01) | DRG 309 ==
LOC: ICU 11:19 → MEDSURG 10-11 12:33 → ICU 10-11 12:33 → CSU 10-11 14:17
PROVIDERS: Admitting Provider Internal Medicine; PCP Family Medicine; Visit Provider Internal Medicine
DX: I48.20 Chronic atrial fibrillation, unspecified (principal); C34.91 Malignant neoplasm of unspecified part of right bronchus or lung; C79.31 Secondary malignant neoplasm of brain; N39.0 Urinary tract infection, site not specified; Z79.01 Long term (current) use of anticoagulants; R09.02 Hypoxemia; Z87.891 Personal history of nicotine dependence; R33.9 Retention of urine, unspecified; Z99.81 Dependence on supplemental oxygen; G89.3 Neoplasm related pain (acute) (chronic); Z66 Do not resuscitate; I11.0 Hypertensive heart disease with heart failure; I50.9 Heart failure, unspecified; I42.8 Other cardiomyopathies; J44.9 Chronic obstructive pulmonary disease, unspecified; I95.1 Orthostatic hypotension
CPT/HCPCS: 36415; 36591; 71045; 80048; 80053; 80162; 81001; 83735; 84443; 85025; 87040; 87077; 87086; 87186; 93005; 94640; 96376; 99215; A4222; C9113; J0283; J0696; J1642; J7120; J7626; J8540

== ENCOUNTER → 2023-10-16 11:13 | Outpatient (BNVA) | payer MEDICARE, SELFPAY | PROVIDERS: PCP Family Medicine; Visit Provider Nurse Practitioner Family | DX: I48.91 Unspecified atrial fibrillation (principal); I48.0 Paroxysmal atrial fibrillation; Z09 Encounter for follow-up examination after completed treatment for conditions other than malignant neoplasm | CPT/HCPCS: 93005; 99214 ==

== ENCOUNTER 2023-10-22 11:00 | Oncology outpatient (recurring) (ONCR) | payer MEDICARE, SELFPAY ==
[2023-10-10 09:07] LABS: Basophils % 0.3 %; Eosinophils # 0.1 10^3/uL (0.0-0.8); Eosinophils % 0.9 %; Hematocrit 33.7 % (37-53); Lymphocytes # 1.4 10^3/uL (0.8-4.8); Lymphocytes % 12.6 %; Mean Corpuscular HGB Conc 33.5 g/dL (30-55); Mean Corpuscular Hemoglobin 31.4 pg (27-33); Mean Corpuscular Volume 93.6 fl (82-101); Mean Platelet Volume 9.5 fL (7.4-10.4); Monocytes # 1.2 10^3/uL (0.2-0.9); Monocytes % 10.4 %; Neutrophils # 8.28 10^3/uL (1.8-7.7); Neutrophils % 74.6 %; Nucleated Red Blood Cells % 0 %; Platelet Count 341 10^3/cmm (157-399); Red Cell Distribution Width 18.8 % (12.1-15.1); White Blood Count 11.09 10^3/uL (3.29-11.43)
[2023-10-10 09:28] LABS: Alanine Aminotransferase 16 U/L (0-41); Albumin Level 3.3 g/dL (3.5-5.2); Alkaline Phosphatase 86 U/L (40-130); Anion Gap 15.8 (5-19); Aspartate Amino Transferase 20 U/L (0-40); Blood Urea Nitrogen 11 mg/dL (8-23); Calcium 8.4 mg/dL (8.5-10.5); Carbon Dioxide 26 mmol/L (22-29); Chloride 100 mmol/L (98-107); Globulin 3.3 g/dL (1.3-4.6); Glomerular Filtration Rate 66.4 mL/min (90-130); Glucose 142 mg/dL (65-115); Osmolality Calculated 288 mOsm/kg (285-295); Potassium 3.8 mmol/L (3.5-5.1); Sodium 138 mmol/L (136-145); Total Bilirubin 0.5 mg/dL (0.15-1.2); Total Protein 6.6 g/dL (6.6-8.7)
[2023-10-10 09:33] LABS: Digoxin 2.1 ng/mL (0.6-1.2)
[2023-10-22 11:58] LABS: Basophils # 0.1 10^3/uL (0.0-0.1); Basophils % 0.9 %; Eosinophils # 0.1 10^3/uL (0.0-0.8); Eosinophils % 1.6 %; Hematocrit 33.8 % (37-53); Lymphocytes # 0.9 10^3/uL (0.8-4.8); Lymphocytes % 15.9 %; Mean Corpuscular HGB Conc 32.8 g/dL (30-55); Mean Corpuscular Hemoglobin 31.7 pg (27-33); Mean Corpuscular Volume 96.6 fl (82-101); Mean Platelet Volume 9.7 fL (7.4-10.4); Monocytes # 0.7 10^3/uL (0.2-0.9); Neutrophils # 3.75 10^3/uL (1.8-7.7); Neutrophils % 68.1 %; Nucleated Red Blood Cells % 0 %; Platelet Count 222 10^3/cmm (157-399); Red Cell Distribution Width 19.9 % (12.1-15.1); White Blood Count 5.52 10^3/uL (3.29-11.43)
[2023-10-22 12:37] LABS: Alanine Aminotransferase 15 U/L (0-41); Albumin Level 3.8 g/dL (3.5-5.2); Alkaline Phosphatase 84 U/L (40-130); Anion Gap 14.1 (5-19); Aspartate Amino Transferase 14 U/L (0-40); Blood Urea Nitrogen 13 mg/dL (8-23); Calcium 8.7 mg/dL (8.5-10.5); Carbon Dioxide 25 mmol/L (22-29); Chloride 100 mmol/L (98-107); Creatinine Clr Calc Pharmacy 111.6968; Globulin 2.7 g/dL (1.3-4.6); Glomerular Filtration Rate 95.8 mL/min (90-130); Glucose 115 mg/dL (65-115); Osmolality Calculated 281 mOsm/kg (285-295); Potassium 4.1 mmol/L (3.5-5.1); Sodium 135 mmol/L (136-145); Thyroid Stimulating Hormone 3.07 uIU/mL (0.27-4.20); Total Bilirubin 0.6 mg/dL (0.15-1.2); Total Protein 6.5 g/dL (6.6-8.7)
== END 2023-11-04 23:59 | disposition home or self-care (01) ==
PROVIDERS: PCP Family Medicine; Visit Provider Internal Medicine Medical Oncology
DX: C34.11 Malignant neoplasm of upper lobe, right bronchus or lung; C79.31 Secondary malignant neoplasm of brain; C79.51 Secondary malignant neoplasm of bone; Z53.9 Procedure and treatment not carried out, unspecified reason; Z79.899 Other long term (current) drug therapy; Z79.52 Long term (current) use of systemic steroids; R68.89 Other general symptoms and signs; Z87.891 Personal history of nicotine dependence
CPT/HCPCS: 36591; 80053; 80162; 84443; 85025; 99214; 99215

== ENCOUNTER 2023-11-15 08:27 | Oncology outpatient (recurring) (ONCR) | payer MEDICARE, SELFPAY ==
[2023-11-15 09:06] LABS: Basophils % 0.4 %; Eosinophils # 0.2 10^3/uL (0.0-0.8); Hematocrit 41.5 % (37-53); Lymphocytes # 0.8 10^3/uL (0.8-4.8); Lymphocytes % 8.6 %; Mean Corpuscular HGB Conc 33.5 g/dL (30-55); Mean Corpuscular Hemoglobin 34.2 pg (27-33); Mean Platelet Volume 10.3 fL (7.4-10.4); Monocytes # 0.8 10^3/uL (0.2-0.9); Monocytes % 8.2 %; Neutrophils # 7.75 10^3/uL (1.8-7.7); Neutrophils % 79.9 %; Nucleated Red Blood Cells % 0 %; Platelet Count 189 10^3/cmm (157-399); Red Blood Count 4.07 10^6/uL (3.85-5.65); Red Cell Distribution Width 15.3 % (12.1-15.1); White Blood Count 9.69 10^3/uL (3.29-11.43)
[2023-11-15 09:39] LABS: Alanine Aminotransferase 15 U/L (0-41); Alkaline Phosphatase 74 U/L (40-130); Anion Gap 18.3 (5-19); Aspartate Amino Transferase 13 U/L (0-40); Blood Urea Nitrogen 22 mg/dL (8-23); Calcium 9.5 mg/dL (8.5-10.5); Carbon Dioxide 25 mmol/L (22-29); Chloride 101 mmol/L (98-107); Globulin 2.8 g/dL (1.3-4.6); Glomerular Filtration Rate 83.7 mL/min (90-130); Glucose 143 mg/dL (65-115); Osmolality Calculated 296 mOsm/kg (285-295); Potassium 4.3 mmol/L (3.5-5.1); Sodium 140 mmol/L (136-145); Thyroid Stimulating Hormone 2.32 uIU/mL (0.27-4.20); Total Bilirubin 0.5 mg/dL (0.15-1.2); Total Protein 6.8 g/dL (6.6-8.7)
== END 2023-12-04 23:59 | disposition home or self-care (01) ==
PROVIDERS: PCP Family Medicine; Visit Provider Internal Medicine Medical Oncology
DX: C79.51 Secondary malignant neoplasm of bone; Z79.899 Other long term (current) drug therapy; Z79.52 Long term (current) use of systemic steroids; Z79.01 Long term (current) use of anticoagulants; C34.91 Malignant neoplasm of unspecified part of right bronchus or lung; R68.89 Other general symptoms and signs
CPT/HCPCS: 36591; 80053; 84443; 85025; 99214

== ENCOUNTER 2023-12-16 15:23 | Emergency (ER) | payer MEDICARE, SELFPAY ==
[2023-12-16 15:36] VITALS: BP 112/63; PULSE 114; RESP 25; TEMP 36.6; O2SAT 94; BMI 27.6
--- NOTE | 2023-12-16 15:40 | ED_ITS ---
HPI - URI/Sore Throat 2 General: Chief Complaint: Upper Respiratory Infection Stated Complaint: sore throat, fever Time Seen by Provider: 12/16/23 15:32 History of Present Illness: 68-year-old male patient comes in today with fever starting this yesterday. Patient started having a severe sore throat this afternoon which prompted patient to come in. Patient also reports some right lower back pain. Patient does have metastatic lung cancer. Patient appears nontoxic. Patient is alert and oriented. Associated symptoms: Reports fever(s) Review of Systems 2 General: Reports: 10 or more systems reviewed and unremarkable except in HPI and below Const: Reports: fever(s) ENMT: Reports: throat pain PFSH ED 2 PFSH: Medical History UTI (urinary tract infection) Hypotension Hypoxia Atrial fibrillation with rapid ventricular response Emphysema lung Pulmonary hypertension Metastasis to bone Adenocarcinoma of right lung, stage 4 Atrial fibrillation CHF (congestive heart failure), NYHA class III Tobacco abuse Obesity Surgical History Port-A-Cath in place 07/11/23 Dr. Nunez Social History Smoking and tobacco/nicotine status: light tobacco/nicotine user (0.5 ppd X >50 years) cigarettes Packs smoked per day: 0.02 Years cigarettes smoked: 55 Quit status (tobacco/nicotine): has quit using Year quit tobacco: 2023 Former quit date comment: tobacco use 54 years Physical Exam 2 Const: COMMON NORMALS: alert HENMT: COMMON NORMALS: normocephalic and Normal external nose present HEAD & SCALP: normocephalic NOSE: Normal external nose present MOUTH: Normal oral and palatal mucosa present THROAT: other (Yeast present) Neck/C-Spine: COMMON NORMALS: full ROM Resp: COMMON NORMALS: normal respiratory effort and clear to auscultation bilaterally AUSCULTATION: clear to auscultation bilaterally Cardio: COMMON NORMALS: regular rate and regular rhythm RATE: regular rate RHYTHM: regular rhythm GI: COMMON NORMALS: Soft to palpation and non-tender PALPATION: Yes Soft to palpation : COMMON NORMALS: Yes no CVA tenderness BLADDER/KIDNEY EXAM: Yes no CVA tenderness Back/Pelvis: COMMON NORMALS: no CVA tenderness and thoracic and lumbar spine normal to inspection Extremity: COMMON NORMALS: normal to inspection Neuro: SENSORIUM/ORIENTATION: Yes alert Skin: COMMON NORMALS: turgor normal GENERAL SKIN EXAM: turgor normal Course 2 Vital Signs: Vital signs: Vital Signs Temperature 97.8 F 12/16/23 15:36 Pulse Rate 114 H 12/16/23 15:36 Respiratory Rate 25 H 12/16/23 15:36 Blood Pressure 112/63 12/16/23 15:36 Pulse Oximetry 94 12/16/23 15:36 Oxygen Delivery Me thod Room Air 12/16/23 15:36 MDM - URI/Sore Throat Medical Decision Making Patient was brought in today for concerns of fever since last night. Patient appears nontoxic. Patient complains of sore throat. On exam patient has no muscle or bony tenderness. Respirations are even lungs are clear to auscultation. Posterior pharynx has thrush. Abdomen soft nontender. No edema is noted in extremities. Patient is alert and oriented x 3. Differential diagnosis includes but not limited to urinary tract infection, pneumonia, strep pharyngitis, thrush, viral syndrome. Chest x-ray noted some peribronchial thickening suggesting may be COPD exacerbation. X-ray of the lumbar spine was negative. CBC showed a normal white blood cell count. CMP had a sodium 135, potassium 3.4. Urinalysis was positive for nitrates and some mild increase in white blood cells. Suspect patient probably has a urinary tract infection. Review of the cultures done in October it could strongly be suspicious for Enterococcus species we will go ahead and treat with the susceptible antibiotic from October which was Levaquin. Patient will be given Levaquin 750 for total of 6 doses. Patient will also be covered with some nystatin for his thrush for the next 14 days. Patient and family both report understanding of care plan need for follow-up or return to the ER for worsening symptoms. Lab Data 12/16/23 16:39 12/16/23 16:39 Radiology Impressions Chest X-Ray 12/16/23 15:46 IMPRESSION: 1. Increased peribronchial thickening suggestive of bronchitis/COPD exacerbation. No focal consolidation. 2. Further mildly decreased density of the known right upper lobe mass, stable in size from 10/10/2023 radiograph. Lumbar Spine X-Ray 12/16/23 15:46 IMPRESSION: 1. No acute plain radiographic abnormality in the lumbar spine. 2. Stable moderate multilevel spondylosis and other chronic changes above. Laboratory Results WBC 5.37 10^3/uL (3.29-11.43) 12/16/23 16:39 RBC 3.77 10^6/uL (3.85-5.65) L 12/16/23 16:39 Hgb 12.50 g/dL (11.27-16.99) 12/16/23 16:39 Hct 40.3 % (37-53) 12/16/23 16:39 MCV 106.9 fl (82-101) H 12/16/23 16:39 MCH 33.2 pg (27-33) H 12/16/23 16:39 MCHC 31.0 g/dL (30-55) 12/16/23 16:39 RDW 12.9 % (12.1-15.1) 12/16/23 16:39 Plt Count 160 10^3/cmm (157-399) 12/16/23 16:39 MPV 9.8 fL (7.4-10.4) 12/16/23 16:39 Neut % (Auto) 78.2 % 12/16/23 16:39 Lymph % (Auto) 10.2 % 12/16/23 16:39 Nicholas % (Auto) 8.2 % 12/16/23 16:39 Eos % (Auto) 2.2 % 12/16/23 16:39 Baso % (Auto) 0.6 % 12/16/23 16:39 Neut # (Auto) 4.20 10^3/uL (1.8-7.7) 12/16/23 16:39 Lymph # (Auto) 0.6 10^3/uL (0.8-4.8) L 12/16/23 16:39 Nicholas # (Auto) 0.4 10^3/uL (0.2-0.9) 12/16/23 16:39 Eos # (Auto) 0.1 10^3/uL (0.0-0.8) 12/16/23 16:39 Baso # (Auto) 0.0 10^3/uL (0.0-0.1) 12/16/23 16:39 Nucleated RBC % (auto) 0 % 12/16/23 16:39 Nucleated RBCs # 0.0 /100WBC 12/16/23 16:39 Sodium 135 mmol/L (136-145) L 12/16/23 16:39 Potassium 3.4 mmol/L (3.5-5.1) L 12/16/23 16:39 Chloride 106 mmol/L (98-107) 12/16/23 16:39 Carbon Dioxide 20 mmol/L (22-29) L 12/16/23 16:39 Anion Gap 12.4 (5-19) 12/16/23 16:39 BUN 14 mg/dL (8-23) 12/16/23 16:39 Creatinine 0.8 mg/dL (0.7-1.2) 12/16/23 16:39 GFR Calculation 95.6 mL/min (90-130) 12/16/23 16:39 Glucose 102 mg/dL (65-115) 12/16/23 16:39 Calculated Osmolality 281 mOsm/kg (285-295) L 12/16/23 16:39 Lactic Acid 1.1 mmol/L (0.5-2.2) 12/16/23 16:39 Calcium 6.2 mg/dL (8.5-10.5) L 12/16/23 16:39 Total Bilirubin 0.5 mg/dL (0.15-1.2) 12/16/23 16:39 AST 19 U/L (0-40) 12/16/23 16:39 ALT 20 U/L (0-41) 12/16/23 16:39 Alkaline Phosphatase 99 U/L (40-130) 12/16/23 16:39 Total Protein 5.1 g/dL (6.6-8.7) L 12/16/23 16:39 Albumin 2.6 g/dL (3.5-5.2) L 12/16/23 16:39 Globulin 2.5 g/dL (1.3-4.6) 12/16/23 16:39 Urine Color Dark yellow (Yellow) 12/16/23 17:57 Urine Appearance Sl hazy (CLEAR) A 12/16/23 17:57 Urine pH 5 (5-7) 12/16/23 17:57 Ur Specific Mcdowell 1.025 (1.005-1.030) 12/16/23 17:57 Urine Protein Trace (Negative) 12/16/23 17:57 Urine Glucose (UA) Norm (Normal) 12/16/23 17:57 Urine Ketones Negative (Negative) 12/16/23 17:57 Urine Blood 2+ (Negative) H 12/16/23 17:57 Urine Nitrate Positive (Negative) H 12/16/23 17:57 Urine Bilirubin 1+ (Negative) H 12/16/23 17:57 Urine Urobilinogen 1 mg/dL (Negative) H 12/16/23 17:57 Ur Leukocyte Esterase Negative (Negative) 12/16/23 17:57 Urine RBC 5-10 /hpf (0-2) H 12/16/23 17:57 Urine WBC 15-25 /hpf (0-5) H 12/16/23 17:57 Ur Squamous Epith Cells 0-4 /hpf (0-5) H 12/16/23 17:57 Amorphous Sediment Not Reportable 12/16/23 17:57 Urine Bacteria 3+ /hpf (NONE) H 12/16/23 17:57 Hyaline Casts 0-4 /lpf H 12/16/23 17:57 Urine Mucus 2+ /hpf 12/16/23 17:57 Adenovirus (PCR) Not detected (NOT DETECT) 12/16/23 16:40 C. pneumoniae DNA (PCR) Not detected (NOT DETECT) 12/16/23 16:40 Coronavirus 229E (PCR) Not detected (NOT DETECT) 12/16/23 16:40 Human Metapneumovir PCR Not detected (NOT DETECT) 12/16/23 16:40 Influenza A (H1) PCR Not detected (NOT DETECT) 12/16/23 16:40 Influ A (H1/09) PCR Not detected (NOT DETECT) 12/16/23 16:40 Influenza A (H3) PCR Not detected (NOT DETECT) 12/16/23 16:40 Influenza Type A (PCR) Not detected (NOT DETECT) 12/16/23 16:40 Influenza Type B (PCR) Not detected (NOT DETECT) 12/16/23 16:40 M. pneumoniae (PCR) Not detected (NOT DETECT) 12/16/23 16:40 Parainfluenza 1 (PCR) Not detected (NOT DETECT) 12/16/23 16:40 Parainfluenza 2 (PCR) Not detected (NOT DETECT) 12/16/23 16:40 Parainfluenza 3 (PCR) Not detected (NOT DETECT) 12/16/23 16:40 Parainfluenza 4 (PCR) Not detected (NOT DETECT) 12/16/23 16:40 RSV Type A (PCR) Not detected (NOT DETECT) 12/16/23 16:40 RSV Type B (PCR) Not detected (NOT DETECT) 12/16/23 16:40 Entero/Rhino (PCR) Not detected (NOT DETECT) 12/16/23 16:40 SARS-CoV-2 (PCR) Not detected (NOT DETECT) 12/16/23 16:40 Group A Strep Rapid Negative (Negative) 12/16/23 16:40 All radiology interpretation(s) finalized by discharge Discharge Plan Discharge Patient Disposition: Home Clinical Impression: Candidiasis of mouth, Acute UTI (urinary tract infection) Condition: Stable Prescriptions: New levofloxacin 750 mg tablet 750 mg PO DAILY 5 Days Qty: 5 0RF nystatin 100,000 unit/mL suspension 4 ml buccal 5XD 14 Days Qty: 280 0RF Rx Instructions: administer 1/2 of dose in each side of the mouth No Action multivitamin Tablet 1 tab PO DAILY cholecalciferol (vitamin D3) 25 mcg (1,000 unit) capsule 25 mcg PO DAILY prochlorperazine maleate [Compazine] 10 mg tablet 10 mg PO Q4H PRN (Reason: nausea and vomiting) Qty: 30 3RF lorazepam 1 mg tablet 1 mg PO Q4H PRN (Reason: severe nausea) Qty: 30 3RF miconazole nitrate [Antifungal (miconazole)] 2 % cream 1 applic topical BID Qty: 28 3RF metoprolol tartrate 25 mg tablet 25 mg PO BID Qty: 60 5RF (DME) Portable oxygen concentrator and supplies See Rx Instructions .Route .MEDSUPPLY Qty: 1 0RF Rx Instructions: As directed triamcinolone acetonide 0.1 % cream 1 applic topical TID Qty: 15 0RF nystatin 100,000 unit/gram cream 1 applic topical TID Qty: 15 0RF Xarelto 20 mg tablet 20 mg PO DAILY Qty: 90 3RF Rx Instructions: must administer with evening meal lactulose 10 gram/15 mL solution 10 g PO BID PRN (Reason: constipation) Qty: 473 1RF pantoprazole [Protonix] 40 mg tablet,delayed release (DR/EC) 40 mg PO DAILY Qty: 30 3RF ondansetron HCl 4 mg tablet 4 mg PO Q6H PRN (Reason: nausea and vomiting) Qty: 30 3RF Stiolto Respimat 2.5-2.5 mcg/actuation mist 2 puff inhalation DAILY Qty: 4 6RF dexamethasone 4 mg tablet 4 mg PO BID Qty: 60 0RF lidocaine-prilocaine 2.5-2.5 % cream 1 applic topical .COMPLEX Qty: 30 3RF Rx Instructions: Apply quarter size amount 30-45 minutes prior to port access, cover with cellophane lubiprostone 24 mcg capsule See Rx Instructions .ROUTE .COMPLEX Qty: 60 0RF Dose Instruction: Take 1 capsule by mouth twice daily Rx Instructions: Take 1 capsule by mouth twice daily folic acid 1 mg tablet See Rx Instructions .ROUTE .COMPLEX Qty: 30 0RF Dose Instruction: TAKE 1 TABLET BY MOUTH ONCE DAILY *START PRIOR TO CHEMOTHERAPY TREATMENT* Rx Instructions: TAKE 1 TABLET BY MOUTH ONCE DAILY *START PRIOR TO CHEMOTHERAPY TREATMENT* docusate sodium [Stool Softener] 100 mg capsule See Rx Instructions .ROUTE .COMPLEX Qty: 60 0RF Dose Instruction: Take 1 capsule by mouth twice daily Rx Instructions: Take 1 capsule by mouth twice daily morphine 30 mg tablet extended release 30 mg PO Q12H 30 Days Qty: 60 0RF midodrine 5 mg Tablet 5 mg PO BID PRN (Reason: Blood pressure below 100/80) Qty: 60 0RF amiodarone 400 mg tablet 200 mg PO BID Qty: 120 4RF Rx Instructions: 400 mg twice a day for 7 days then 400 mg daily Discharge Orders: Discharge ED (Routine); Ordered 12/16/23 Ordered By: Jesus Rajput Referrals: Orion Summers [Primary Care Provider] - Discharge Diet: Usual diet Discharge Activity: Increase activity as tolerated Activity Restrictions/Additional Instructions: Drink plenty of water and fluids. Take medications as directed. Follow-up with primary care in 3 days for recheck. Return to ER for worsening symptoms. Coding Level of Care Code ED Senior Benefits Manager for Александр Maldonado
--- NOTE | 2023-12-16 15:46 | XRR_ITS ---
PROCEDURE INFORMATION: Exam: XR Chest Exam date and time: 12/16/2023 4:09 PM Age: 68 years old Clinical indication: Cough; Prior surgery; Surgery date: 6+ months; Surgery type: Port TECHNIQUE: Imaging protocol: Radiologic exam of the chest. Views: 1 view. COMPARISON: CR XR chest 1V portable [id number] 10/10/2023 12:44 PM FINDINGS: Tubes, catheters and devices: Right-sided port again noted. Lungs: Scattered strand-like and mild reticular basilar interstitial thickening , unchanged from prior imaging. Mild diffuse bronchial wall thickening has increased especially in the perihilar infrahilar lung bases. No new airspace opacity. Mildly hyperinflated lungs with features of underlying bullous emphysema especially in the medial upper lobes. Previous no jejunal neoplasm in the medial right upper lobe is further slightly decreased in density, stable in size from 10/10/2023. Pleural spaces: No pleural effusion or pneumothorax. Heart/Mediastinum: Unremarkable. No cardiomegaly. Bones/joints: Mild dextroscoliosis and multilevel thoracic spondylosis. XR/XR chest 1V portable [id number] IMPRESSION: 1. Increased peribronchial thickening suggestive of bronchitis/COPD exacerbation. No focal consolidation. 2. Further mildly decreased density of the known right upper lobe mass, stable in size from 10/10/2023 radiograph.
--- NOTE | 2023-12-16 15:46 | XRR_ITS ---
PROCEDURE INFORMATION: Exam: XR Lumbosacral Spine Exam date and time: 12/16/2023 4:11 PM Age: 68 years old Clinical indication: Low back pain; Additional info: Back pain, HX met cancer TECHNIQUE: Imaging protocol: Radiologic exam of the lumbosacral spine. Views: 2 or 3 views. COMPARISON: CT chest abdpel w/*[id number] 09/06/2023 9:52 AM FINDINGS: Bones/joints: Large anterior endplate osteophytosis with bridging in the lower thoracic spine. Moderate anterior endplate spurring in the lumbar spine. Aifj-st-sthjdnya lower lumbar facet arthropathy. Minimal retrolisthesis of L1 over L2 and L2 over L3. Mild concave height loss of L4 is probably chronic. No vertebral wedge compression otherwise. Mild disc space narrowing at L5-S1. Minimal scoliosis. Diffuse osteopenia. No lytic or blastic abnormality on plain radiography. Soft tissues: Moderate aortic atherosclerotic calcification. XR/XR lumbar spine 2-3V* [id number] IMPRESSION: 1. No acute plain radiographic abnormality in the lumbar spine. 2. Stable moderate multilevel spondylosis and other chronic changes above.
[2023-12-16 16:49] LABS: Basophils % 0.6 %; Eosinophils # 0.1 10^3/uL (0.0-0.8); Eosinophils % 2.2 %; Hematocrit 40.3 % (37-53); Lymphocytes # 0.6 10^3/uL (0.8-4.8); Lymphocytes % 10.2 %; Mean Corpuscular Hemoglobin 33.2 pg (27-33); Mean Corpuscular Volume 106.9 fl (82-101); Mean Platelet Volume 9.8 fL (7.4-10.4); Monocytes # 0.4 10^3/uL (0.2-0.9); Monocytes % 8.2 %; Neutrophils % 78.2 %; Nucleated Red Blood Cells % 0 %; Platelet Count 160 10^3/cmm (157-399); Red Blood Count 3.77 10^6/uL (3.85-5.65); Red Cell Distribution Width 12.9 % (12.1-15.1); White Blood Count 5.37 10^3/uL (3.29-11.43)
[2023-12-16 17:06] LABS: Alanine Aminotransferase 20 U/L (0-41); Albumin Level 2.6 g/dL (3.5-5.2); Alkaline Phosphatase 99 U/L (40-130); Anion Gap 12.4 (5-19); Aspartate Amino Transferase 19 U/L (0-40); Blood Urea Nitrogen 14 mg/dL (8-23); Calcium 6.2 mg/dL (8.5-10.5); Carbon Dioxide 20 mmol/L (22-29); Chloride 106 mmol/L (98-107); Globulin 2.5 g/dL (1.3-4.6); Glomerular Filtration Rate 95.6 mL/min (90-130); Glucose 102 mg/dL (65-115); Osmolality Calculated 281 mOsm/kg (285-295); Potassium 3.4 mmol/L (3.5-5.1); Sodium 135 mmol/L (136-145); Total Bilirubin 0.5 mg/dL (0.15-1.2); Total Protein 5.1 g/dL (6.6-8.7)
[2023-12-16 17:07] LABS: Lactic Sepsis W/Reflex 1.1 mmol/L (0.5-2.2)
[2023-12-16 17:18] LABS: Rapid Strep A Test Negative (Negative)
[2023-12-16] MEDS: nystatin 100,000 unit/mL UDC 5 mL 500000 UNIT PO ×2 (17:51→19:25)
[2023-12-16 18:38] LABS: Adenovirus Not Detected (NOT DETECT); Chlamydia Pneumoniae Not Detected (NOT DETECT); Coronavirus 229E,HKU1,NL63,OC4 Not Detected (NOT DETECT); Human Metapneumovirus Not Detected (NOT DETECT); Human Rhinovirus/Enterovirus Not Detected (NOT DETECT); Influenza A Not Detected (NOT DETECT); Influenza A H1 Not Detected (NOT DETECT); Influenza A H1-2009 Not Detected (NOT DETECT); Influenza A H3 Not Detected (NOT DETECT); Influenza B Not Detected (NOT DETECT); Mycoplasma Pneumoniae Not Detected (NOT DETECT); Parainfluenza Virus Type 1 Not Detected (NOT DETECT); Parainfluenza Virus Type 2 Not Detected (NOT DETECT); Parainfluenza Virus Type 3 Not Detected (NOT DETECT); Parainfluenza Virus Type 4 Not Detected (NOT DETECT); Respiratory Syncytial Virus A Not Detected (NOT DETECT); Respiratory Syncytial Virus B Not Detected (NOT DETECT); SARS-COV-2 Not Detected (NOT DETECT)
[2023-12-16 18:40] LABS: Specific Gravity, Urine 1.025 (1.005-1.030); Urine Appearance SL Hazy (CLEAR); Urine Color Dark Yellow (Yellow); pH Urine 5 (5-7)
[2023-12-16 18:41] LABS: Add Urine Microscopic? YES; Bacteria Urine 3+ /hpf; Bilirubin Urine 1+ (Negative); Blood Urine 2+ (Negative); Glucose Urine UA Norm (Normal); Hyaline Casts Urine 0-4 /lpf; Ketones Urine Negative (Negative); Leukocyte Esterase Urine Negative (Negative); Mucus Urine 2+ /hpf; Nitrate Urine Positive (Negative); Protein Urine Trace (Negative); Squamous Epithelial Cell Urine 0-4 /hpf (0-5); Urobilinogen Urine 1 mg/dL (Negative); WBC Urine 15-25 /hpf (0-5)
[2023-12-16 18:42] LABS: Add Urine Culture? Yes
[2023-12-16] MEDS: levoFLOXacin 750 mg Tablet PO (19:24)
[2023-12-16 19:27] VITALS: BP 113/65; PULSE 99; RESP 18; TEMP 36.6; O2SAT 95
== END 2023-12-16 19:46 | disposition home or self-care (01) ==
PROVIDERS: Emergency Medicine; Emergency Provider Nurse Practitioner Family; PCP Family Medicine
DX: B37.0 Candidal stomatitis (principal); N39.0 Urinary tract infection, site not specified; Z11.52 Encounter for screening for COVID-19; Z87.440 Personal history of urinary (tract) infections; J43.9 Emphysema, unspecified; Z85.118 Personal history of other malignant neoplasm of bronchus and lung; I50.9 Heart failure, unspecified; F17.210 Nicotine dependence, cigarettes, uncomplicated
CPT/HCPCS: 71045; 72100; 80053; 81001; 83605; 85025; 87040; 87077; 87081; 87086; 87150; 87186; 87205; 87486; 87581; 87633; 87880; 96374; 99284; J1642

== ENCOUNTER → 2023-12-24 11:24 | Outpatient (BNVA) | payer MEDICARE, SELFPAY | PROVIDERS: PCP Family Medicine; Visit Provider Nurse Practitioner Family | DX: N39.0 Urinary tract infection, site not specified (principal) | CPT/HCPCS: 81000; 87077; 87086; 87184 ==

== ENCOUNTER 2023-12-27 13:27 | Oncology outpatient (recurring) (ONCR) | payer MEDICARE, SELFPAY ==
--- NOTE | 2023-12-27 14:06 | ONCRAD EPV_ITS ---
Radiation Oncology Established Patient Visit Patient: Jaleel Rhodes [id number] : 1955> Age: 68> Sex: Male> Dictated by: Dr. Ghazala Townsend Date of Service: 12/27/2023 Referring Physician(s) : Dr. Conner Diagnosis: C79.31 - Secondary malignant neoplasm of brain, Diagnosed 07/11/2023 (Active) C79.51 - Secondary malignant neoplasm of bone, Diagnosed 04/26/2023 (Active) Radiotherapy to Date: Course: T Spine 2022, Treatment Site: T Spine 20Gy, Ref. ID: [id number], Energy: 15X, Dose/Fx (cGy): 400, #Fx: 5 / 5, Dose Correction (cGy): 0, Total Dose Delivered (cGy): 2,000, Start Date: 06/06/2023, End Date: 06/12/2023, Elapsed Days: 6 Course: Whole Brain 2022, Treatment Site: [id number], Ref. ID: [id number], Energy: 15X, Dose/Fx (cGy): 300, #Fx: 10 / 10, Dose Correction (cGy): 0, Total Dose Delivered (cGy): 3,000, Start Date: 07/16/2023, End Date: 07/27/2023, Elapsed Days: 11 Current History: Patient is seen today after visiting with Dr. Conner in complaining of increasing back pain. For the last 2 to 3 weeks he has noticed pain when he stands and after he has stood for a while in the low lumbar area. This does not bother him when he is sitting or when he is lying down. He continues to be on his long-acting morphine with occasional hydrocodone for breakthrough. He is also being treated for a bladder infection which is caused him to have quite a bit of urgency and frequency. He is on his second round of antibiotics for this. He has no radicular pain and no changes in lower extremity strength. His prior treatments were delivered to T5 and T6. He is here today to discuss whether additional treatment would be in order. He did have plain films done which showed large anterior endplate osteophytosis with bridging in the lower thoracic spine. Moderate anterior endplate spurring in the lumbar spine. Mild to moderate lower lumbar facet arthropathy. Mild concave height loss of L4. Disc space narrowing of L5 and S1. Diffuse osteoporosis. Current Medications: Allergies: Current Complaints / Review of Systems: . Vital Signs: Performed on 12/27/2023 1:34 PM BMI - 26.498 kg/m2 (high), Height - 75 in, Weight - 212 lbs, Temperature - 97.6 f, Pulse - 91 /min, Respiration - 16 /min, O2 Sat - 92 % (low), Pain - 0, Fatigue - 7 and BP - 105/ 66 mm(hg). Physical Exam: General: Alert and oriented x 3. No acute distress. HEENT: Normocephalic, atraumatic. Extraocular Movements Intact: Pupils Equal, Round, Reactive to Light: Sclerae anicteric. LUNGS: Respiratory rate is regular nonlabored. Oxygen on 2 L is 92%. HEART: Regular rate and rhythm,. ABDOMEN: Nontender and nonprotuberant EXTREMITIES: No peripheral edema is identified NEUROLOGIC: Alert and orient x 3. Speech intact. Patient sitting comfortably in a wheelchair. Performance Status: 60 Lab: None pending. Pathology: Primary, c79.31 - secondary malignant neoplasm of brain, Diagnosed 07/11/2023 (active) and Primary, c79.51 - secondary malignant neoplasm of bone, Diagnosed 04/26/2023 (active) . Imaging: See HPI Impression: Stage IV adenocarcinoma of the lung Plan: We talked today about how we could proceed with additional imaging which would be more specific. I reviewed with him that a good portion of patients with metastatic disease will have plain films that are normal. The next step in any imaging would be to proceed with an MRI. We talked about his prior treatment and his daughter was concerned that he became very fatigued with the treatment to his thoracic spine. At this point he would like to hold off for a few weeks to see if things get a little bit better on their own. This will also allow him to clear his bladder infection. I did encourage him to go ahead and treat the area like it was in normal low back issue. He could use heat or cold on the area. Will coordinate his next appointment with his appointment here in the department which will be mid January. If he should have any changes in the pain or wish to proceed with the imaging we can have him call and we will go ahead and schedule an MRI of his thoracic lumbar spine. He was happy with the above plan and he will call if he needs anything. Signed by: 12/27/2023 2:05:45 PM <<Signature on File>> Time spent with patient:35 CPT Code: CPT Code:
== END 2024-01-04 23:59 | disposition home or self-care (01) ==
PROVIDERS: PCP Family Medicine; Visit Provider Internal Medicine Medical Oncology
DX: C79.51 Secondary malignant neoplasm of bone (principal); C79.31 Secondary malignant neoplasm of brain; Z79.891 Long term (current) use of opiate analgesic; Z79.2 Long term (current) use of antibiotics; N30.90 Cystitis, unspecified without hematuria; M48.07 Spinal stenosis, lumbosacral region; M25.78 Osteophyte, vertebrae; M47.816 Spondylosis without myelopathy or radiculopathy, lumbar region
CPT/HCPCS: 96523; 99214; 99215

== ENCOUNTER 2024-01-17 13:01 | Oncology outpatient (recurring) (ONCR) | payer MEDICARE, SELFPAY ==
[2024-01-17 13:53] LABS: Basophils # 0.1 10^3/uL (0.0-0.1); Eosinophils # 0.3 10^3/uL (0.0-0.8); Eosinophils % 3.3 %; Hematocrit 40.8 % (37-53); Lymphocytes # 1.1 10^3/uL (0.8-4.8); Mean Corpuscular HGB Conc 33.1 g/dL (30-55); Mean Corpuscular Hemoglobin 31.6 pg (27-33); Mean Corpuscular Volume 95.6 fl (82-101); Mean Platelet Volume 10.3 fL (7.4-10.4); Monocytes # 1.1 10^3/uL (0.2-0.9); Monocytes % 13.1 %; Nucleated Red Blood Cells % 0 %; Platelet Count 272 10^3/cmm (157-399); Red Blood Count 4.27 10^6/uL (3.85-5.65); Red Cell Distribution Width 13.2 % (12.1-15.1)
[2024-01-17 14:14] LABS: Alanine Aminotransferase 9 U/L (0-41); Alkaline Phosphatase 124 U/L (40-130); Anion Gap 14.5 (5-19); Aspartate Amino Transferase 13 U/L (0-40); Blood Urea Nitrogen 16 mg/dL (8-23); Calcium 8.2 mg/dL (8.5-10.5); Carbon Dioxide 25 mmol/L (22-29); Chloride 105 mmol/L (98-107); Globulin 3.3 g/dL (1.3-4.6); Glomerular Filtration Rate 83.4 mL/min (90-130); Glucose 131 mg/dL (65-115); Osmolality Calculated 293 mOsm/kg (285-295); Potassium 4.5 mmol/L (3.5-5.1); Sodium 140 mmol/L (136-145); Total Bilirubin 0.3 mg/dL (0.15-1.2); Total Protein 6.3 g/dL (6.6-8.7)
--- NOTE | 2024-01-17 14:31 | ONCRAD EPV_ITS ---
Radiation Oncology Established Patient Visit Patient: Jaleel Rhodes [id number] : 1955 Age: 68 Sex: Male Dictated by: Dr. Ghazala Townsend Date of Service: 01/17/2024 Referring Physician(s) : Diagnosis: C79.31 - Secondary malignant neoplasm of brain, Diagnosed 07/11/2023 (Active) C79.51 - Secondary malignant neoplasm of bone, Diagnosed 04/26/2023 (Active) Patient returns today for a routine follow-up. He was seen a few weeks ago with increasing low back pain. At the time he was also being treated for bladder infection. In the interim he has had resolution of that pain and that now his pain is a level 2. He has had more issues with just overall strength and he is fallen several times. He is moved from a cane to a walker. His fatigue level is about a 2 today as well. His main complaint today is that he has no appetite. Radiotherapy to Date: Course: T Spine 2022, Treatment Site: T Spine 20Gy, Ref. ID: [id number], Energy: 15X, Dose/Fx (cGy): 400, #Fx: 5 / 5, Dose Correction (cGy): 0, Total Dose Delivered (cGy): 2,000, Start Date: 06/06/2023, End Date: 06/12/2023, Elapsed Days: 6 Course: Whole Brain 2022, Treatment Site: [id number], Ref. ID: [id number], Energy: 15X, Dose/Fx (cGy): 300, #Fx: 10 / 10, Dose Correction (cGy): 0, Total Dose Delivered (cGy): 3,000, Start Date: 07/16/2023, End Date: 07/27/2023, Elapsed Days: 11 Current History: As above Current Medications: Allergies: Current Complaints / Review of Systems: . Vital Signs: Performed on 01/17/2024 1:35 PM BMI - 25.848 kg/m2 (high), Height - 75 in, Weight - 206.8 lbs, Temperature - 96.9 f, Pulse - 92 /min, Respiration - 16 /min, O2 Sat - 94 % (low), Pain - 2, Fatigue - 2 and BP - 125/ 79 mm(hg). Physical Exam: General: Alert and oriented x 3. No acute distress. HEENT normocephalic atraumatic. Pupils are equal sclera clear. Extraocular muscles intact . Pulmonary: Respiratory rate is regular nonlabored HEART: Regular rate and rhythm, ABDOMEN abdomen is fairly flat with minimal adipose tissue EXTREMITIES: No peripheral edema is identified Skin: The skin across his forearms and his hands are quite dry. The skin on his face is also quite dry NEUROLOGIC: Alert and orient x 3. Speech is intact. Gait is with a walker Performance Status: 68 Lab: None pending. Pathology: Primary, c79.31 - secondary malignant neoplasm of brain, Diagnosed 07/11/2023 (active) and Primary, c79.51 - secondary malignant neoplasm of bone, Diagnosed 04/26/2023 (active) . Imaging: See HPI Impression: Stage IV non-small cell carcinoma of the lung Plan at this point I reviewed with him and his family that the overall plan had been to manage what ever symptoms he developed. He currently is doing well without any new symptoms and the symptoms previously have resolved. We talked about having him call if he should develop any new aches or pains or have any other issues. He will be seen by medical oncology today. He knows that there really is not any additional therapy that would be of benefit but he asked again if there might be something he could do. I reinforced that at this point we were trying to manage symptoms and keep him as comfortable as possible with his good quality of life as possible. At this point we will see him back as needed should he develop any new aches or pains or any other issues we can help with Signed by: 01/17/2024 2:29:49 PM <<Signature on File>> Time spent with patient: 25 CPT Code: CPT Code:
== END 2024-02-03 23:59 | disposition home or self-care (01) ==
PROVIDERS: PCP Family Medicine; Visit Provider Internal Medicine Medical Oncology
DX: C79.31 Secondary malignant neoplasm of brain; C79.51 Secondary malignant neoplasm of bone; Z72.0 Tobacco use; C34.11 Malignant neoplasm of upper lobe, right bronchus or lung; Z92.3 Personal history of irradiation; Z92.21 Personal history of antineoplastic chemotherapy
CPT/HCPCS: 36591; 80053; 85025; 99214

== ENCOUNTER 2024-03-05 12:24 | Oncology outpatient (recurring) (ONCR) | payer MEDICARE, SELFPAY ==
[2024-02-04 10:45] LABS: Basophils # 0.1 10^3/uL (0.0-0.1); Basophils % 0.5 %; Eosinophils # 0.2 10^3/uL (0.0-0.8); Eosinophils % 1.5 %; Hematocrit 37.3 % (37-53); Lymphocytes # 0.7 10^3/uL (0.8-4.8); Lymphocytes % 6.3 %; Mean Corpuscular HGB Conc 32.4 g/dL (30-55); Mean Corpuscular Hemoglobin 30.3 pg (27-33); Mean Corpuscular Volume 93.3 fl (82-101); Mean Platelet Volume 9.2 fL (7.4-10.4); Monocytes # 1.5 10^3/uL (0.2-0.9); Monocytes % 13.1 %; Neutrophils # 8.87 10^3/uL (1.8-7.7); Neutrophils % 77.8 %; Nucleated Red Blood Cells % 0 %; Platelet Count 423 10^3/cmm (157-399); Red Cell Distribution Width 13.5 % (12.1-15.1); White Blood Count 11.41 10^3/uL (3.29-11.43)
[2024-02-04 11:06] LABS: Alanine Aminotransferase 7 U/L (0-41); Albumin Level 2.8 g/dL (3.5-5.2); Alkaline Phosphatase 105 U/L (40-130); Aspartate Amino Transferase 11 U/L (0-40); Blood Urea Nitrogen 12 mg/dL (8-23); Calcium 8.3 mg/dL (8.5-10.5); Carbon Dioxide 27 mmol/L (22-29); Chloride 101 mmol/L (98-107); Globulin 3.4 g/dL (1.3-4.6); Glomerular Filtration Rate 111.5 mL/min (90-130); Glucose 130 mg/dL (65-115); Osmolality Calculated 288 mOsm/kg (285-295); Sodium 138 mmol/L (136-145); Total Bilirubin 0.4 mg/dL (0.15-1.2); Total Protein 6.2 g/dL (6.6-8.7)
--- NOTE | 2024-02-28 13:00 | MR_ITS ---
WS: [id number] MRI LUMBAR SPINE WITH CONTRAST TECHNIQUE: Sagittal T1, T2 and STIR imaging. Axial T1 and T2 imaging. Post gadolinium imaging was obt ained. CLINICAL INFORMATION: back pain COMPARISON: None. FINDINGS: 6 lumbar type vertebral bodies labeled L1-L6. Small riblets at L1. Counting performed from the craniocervical junction. Mild lumbar curve. No acute compression. No high-grade central canal stenosis. Endplate Schmorl's nod es involving the L2 and L3 inferior endplates with enhancement likely inflammatory. Small incidental hemangioma L2. No evidence of enhancing bony metastatic disease in the lumbar spine. L1-L2: Normal. L2-L3: Mild annular bulging. Mild facet arthropathy. L3-L4: Mild annular bulging. Mild central canal stenosis. Narrowing of the subarticular recess. Mild facet arthropathy. Slight retrolisthesis. Mild RIGHT foraminal narrowing. Mild facet arthropathy. L4-L5: Mild annular bulging. Slight effacement of the ventral thecal sac. Slight narrowing of the RIG HT subarticular recess. Mild RIGHT foraminal narrowing. L5-L6: Mild disc osteophyte complex with endplate ridging. Mild LEFT and no significant RIGHT foramin al narrowing. Mild facet arthropathy. L6-S1: Mild facet arthropathy. Spinal canal and foramen are patent. Partially visualized large LEFT renal cyst. MR/MR lumbar spine wo/w con [id number] IMPRESSION: 1. 6 lumbar type vertebral bodies. Small riblets at L1. Counting performed f rom the craniocervical junction. 2. No evidence of metastatic disease in the lumbar spine. Mild central canal s tenosis L3-4. 3. Additional nonacute spondylitic changes described above
--- NOTE | 2024-02-28 13:45 | MR_ITS ---
WS: [id number] MRI THORACIC SPINE WITH CONTRAST TECHNIQUE: Sagittal T1, T2 and STIR imaging. Axial T2 imaging. Post gadolinium imaging was obtained. CLINICAL INFORMATION: back pain COMPARISON: PET/CT 04/14/2023 FINDINGS: Mild thoracic curve. Mild thoracic kyphosis. Again seen are metastatic lesions involving the T4, T5 a nd T6 vertebral bodies (more prominent involving T5 and T6 vertebral bodies). Evidence of interval tr eatment with a small amount of enhancement involving the T5 and T6 central vertebral bodies. However, there is extensive paravertebral soft tissue thickening and enhancement at the T5 and T6 levels susp icious for progressed metastatic disease. Enhancement extends into the neural foramen with a small am ount of associated epidural enhancement. Extension into the posterior elements worse at the T5 level. Findings suspicious for recurrent disease in this location. No significant central canal stenosis. Incidental enhancing inflammatory Schmorl's nodes in the midthoracic spine. No acute compression frac tures. No high-grade central canal stenosis. Cord signal is normal. Hypertrophic changes anterior tho racic spine. Partially visualized emphysematous changes and bulla formation in the upper lobes. Air-fluid level in a RIGHT upper lobe bulla with airspace infiltrates and fluid RIGHT upper lobe partially visualized. Recommend further evaluation with chest CT. 3.1 cm RIGHT adrenal nodule partially visualized. Small adjacent satellite nodule. Smaller partially visualized LEFT adrenal nodules. Partially visualized polypoid lesion in the RIGHT trachea at the thoracic inlet measuring 10 mm. This could be further evaluated with endoscopy. MR/MR thoracic spine wo/w [id number] IMPRESSION: 1. Previously described metastatic disease T4-T6 appears recurrent compared t o the prior examinations with small amount of epidural enhancement with promine nt associated paravertebral soft tissue enhancement extending into the neural f oramen. Enhancement in the T5-T6 disc space. This extends into the posterior el ements worse at T5. 2. Evidence of treated disease in the central T5 and T6 vertebral bodies. 3. Bone scan or PET scan can be obtained in further evaluation to verify activ e disease. 4. No acute compression fractures. 5. Cord signal is normal. 6. Partially visualized air-fluid level in the RIGHT upper lobe with layering infiltrates. This is incompletely evaluated. Recommend chest CT in further eval uation. 7. Partially evaluated lobulated RIGHT adrenal nodules. This was present on th e prior CT 09/06/2023 8. Partially visualized polypoid lesion in the RIGHT trachea at the thoracic i nlet measuring 10 mm. This could be further evaluated with endoscopy.
[2024-02-28] MEDS: gadobenate dimeglumine 20 mL vial IV (14:18)
--- NOTE | 2024-03-06 08:52 | [facility] EPV_ITS ---
Radiation Oncology Established Patient Visit Patient: Jaleel Rhodes [id number] : 1955 Age: 68 Sex: Male Dictated by: Dr. Ghazala Townsend Date of Service: 03/05/2024 Referring Physician(s) : Diagnosis: C79.31 - Secondary malignant neoplasm of brain, Diagnosed 07/11/2023 (Active) C79.51 - Secondary malignant neoplasm of bone, Diagnosed 04/26/2023 (Active) Current symptoms: Patient returns today as he has been in increasing pain between his shoulder blades in the low back. He has pain in the low back on a daily basis and pain between the shoulder blades less frequently. He is aware that his most recent MRI showed progression of the disease between his shoulder blades and that the MRI of the lumbar area did not show any metastatic disease. I have previously met with him in regards to the pain that he had in the thoracic area and at that time he did not wish to proceed with treatment but today he feels that his symptoms have progressed to the point where he would like to proceed with additional intervention. Radiotherapy to Date: Course: T Spine 2022, Treatment Site: T Spine 20Gy, Ref. ID: [id number], Energy: 15X, Dose/Fx (cGy): 400,#Fx: 5 / 5, Dose Correction (cGy): 0, Total Dose Delivered (cGy): 2,000, Start Date: 06/06/2023, End Date: 06/12/2023, Elapsed Days: 6 Course: Whole Brain 2022, Treatment Site: [id number], Ref. ID: [id number], Energy: 15X, Dose/Fx (cGy): 300, #Fx: 10 / 10, Dose Correction (cGy): 0, Total Dose Delivered (cGy): 3,000, Start Date: 07/16/2023, End Date: 07/27/2023, Elapsed Days: 11 Current History: Current Medications: Allergies: Current Complaints / Review of Systems: . Vital Signs: Performed on 03/05/2024 1:10 PM BMI - 24.798 kg/m2 (high), Height - 75 in, Weight - 198.4 lbs, Temperature - 97.4 f, Pulse - 65 /min, Respiration - 16 /min, O2 Sat - 98 %, Pain - 3, Fatigue - 0 and BP - 104/ 59 mm(hg)(/low). Physical Exam: General: Alert and oriented x 3. No acute distress. HEENT: Normocephalic atraumatic. Pupils equal, sclera clear, extraocular muscles intact. LUNGS: Respiratory rate is regular nonlabored HEART: Regular rate and rhythm, MUSCULOSKELETAL: He has no palpable areas of tenderness in the thoracic area. He does confirm the area of tenderness is the upper area between the scapula I. ABDOMEN: Mildly protuberant and nontender EXTREMITIES: No obvious gross edema NEUROLOGIC: Alert and orient x 3. Gait and speech and within normal limits. Performance Status: 80 Lab: None pending. Pathology: Primary, c79.31 - secondary malignant neoplasm of brain, Diagnosed 07/11/2023 (active) and Primary, c79.51 - secondary malignant neoplasm of bone, Diagnosed 04/26/2023 (active) . 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 We talked about how we can do additional treatment to this area but this would be the last time we be able to proceed with this treatment. During the course of his last treatment his only real symptoms that he had was fatigue. He is familiar with the simulation process. We reviewed the risks and side effects both acute and long-term. At this point he is agreed to proceed with treatments and we will proceed with a 5-day treatment course as we did previously but we will go ahead and space these treatments out to 3 times a week so that he does not have as much stress on his system as it does take him an hour to get here for treatment. He will undergo simulation today and will begin his treatments sometime next week. Signed by: 03/06/2024 8:51:04 AM <<Signature on File>> Time spent with patient: 30 CPT Code: CPT Code:
== END 2024-03-05 23:59 | disposition home or self-care (01) ==
PROVIDERS: PCP Family Medicine; Visit Provider Internal Medicine Medical Oncology
DX: Z51.0 Encounter for antineoplastic radiation therapy (principal); C79.51 Secondary malignant neoplasm of bone; C34.11 Malignant neoplasm of upper lobe, right bronchus or lung
CPT/HCPCS: 36591; 72157; 72158; 77290; 77334; 77470; 80053; 85025; 96523; 99214; A9577

== ENCOUNTER 2024-03-27 15:30 | Outpatient (CLI) | payer MEDICARE, SELFPAY | END 2024-03-27 15:31 | disposition home or self-care (01) | PROVIDERS: PCP Family Medicine; Visit Provider Family Medicine | DX: R30.0 Dysuria (principal); R35.0 Frequency of micturition | CPT/HCPCS: 87086 ==

== ENCOUNTER 2024-04-17 14:02 | Oncology outpatient (recurring) (ONCR) | payer MEDICARE, SELFPAY ==
[2024-04-17 14:26] LABS: Basophils # 0.1 10^3/uL (0.0-0.1); Basophils % 0.6 %; Eosinophils # 0.2 10^3/uL (0.0-0.8); Eosinophils % 2.4 %; Hematocrit 38.6 % (37-53); Lymphocytes # 0.7 10^3/uL (0.8-4.8); Lymphocytes % 7.5 %; Mean Corpuscular HGB Conc 32.6 g/dL (30-55); Mean Corpuscular Hemoglobin 29.6 pg (27-33); Mean Corpuscular Volume 90.8 fl (82-101); Mean Platelet Volume 9.8 fL (7.4-10.4); Monocytes # 0.9 10^3/uL (0.2-0.9); Monocytes % 10.1 %; Neutrophils # 7.04 10^3/uL (1.8-7.7); Neutrophils % 78.8 %; Nucleated Red Blood Cells % 0 %; Platelet Count 308 10^3/cmm (157-399); Red Blood Count 4.25 10^6/uL (3.85-5.65); Red Cell Distribution Width 15.4 % (12.1-15.1); White Blood Count 8.92 10^3/uL (3.29-11.43)
[2024-04-17 14:44] LABS: Alanine Aminotransferase 11 U/L (0-41); Albumin Level 3.7 g/dL (3.5-5.2); Alkaline Phosphatase 80 U/L (40-130); Anion Gap 16.2 (5-19); Aspartate Amino Transferase 14 U/L (0-40); Blood Urea Nitrogen 20 mg/dL (8-23); Calcium 8.6 mg/dL (8.5-10.5); Carbon Dioxide 27 mmol/L (22-29); Chloride 100 mmol/L (98-107); Globulin 3.2 g/dL (1.3-4.6); Glomerular Filtration Rate 83.4 mL/min (90-130); Glucose 116 mg/dL (65-115); Osmolality Calculated 292 mOsm/kg (285-295); Potassium 4.2 mmol/L (3.5-5.1); Sodium 139 mmol/L (136-145); Total Bilirubin 0.3 mg/dL (0.15-1.2); Total Protein 6.9 g/dL (6.6-8.7)
== END 2024-05-05 23:59 | disposition home or self-care (01) ==
PROVIDERS: Nurse Practitioner Family; PCP Family Medicine; Visit Provider Internal Medicine Medical Oncology
DX: C79.51 Secondary malignant neoplasm of bone; C34.11 Malignant neoplasm of upper lobe, right bronchus or lung
CPT/HCPCS: 36591; 80053; 85025; 99214

== ENCOUNTER 2024-06-24 09:45 | Oncology outpatient (recurring) (ONCR) | payer MEDICARE, SELFPAY ==
[2024-06-10 11:35] LABS: Basophils % 0.3 %; Eosinophils # 0.1 10^3/uL (0.0-0.8); Eosinophils % 0.8 %; Hematocrit 41.3 % (37-53); Lymphocytes # 0.8 10^3/uL (0.8-4.8); Lymphocytes % 9.2 %; Mean Corpuscular HGB Conc 32.4 g/dL (30-55); Mean Corpuscular Hemoglobin 30.3 pg (27-33); Mean Corpuscular Volume 93.4 fl (82-101); Mean Platelet Volume 10.4 fL (7.4-10.4); Monocytes % 10.5 %; Neutrophils # 7.14 10^3/uL (1.8-7.7); Neutrophils % 78.8 %; Nucleated Red Blood Cells % 0 %; Platelet Count 295 10^3/cmm (157-399); Red Blood Count 4.42 10^6/uL (3.85-5.65); White Blood Count 9.06 10^3/uL (3.29-11.43)
[2024-06-10 11:55] LABS: Alanine Aminotransferase 13 U/L (0-41); Albumin Level 3.8 g/dL (3.5-5.2); Alkaline Phosphatase 105 U/L (40-130); Anion Gap 15.2 (5-19); Aspartate Amino Transferase 14 U/L (0-40); Blood Urea Nitrogen 18 mg/dL (8-23); Calcium 8.7 mg/dL (8.5-10.5); Carbon Dioxide 29 mmol/L (22-29); Chloride 98 mmol/L (98-107); Creatinine Clr Calc Pharmacy 72.9368; Glomerular Filtration Rate 66.2 mL/min (90-130); Glucose 147 mg/dL (65-115); Osmolality Calculated 291 mOsm/kg (285-295); Potassium 4.2 mmol/L (3.5-5.1); Sodium 138 mmol/L (136-145); Total Bilirubin 0.3 mg/dL (0.15-1.2); Total Protein 6.8 g/dL (6.6-8.7)
--- NOTE | 2024-06-20 13:00 | PETR_ITS ---
PROCEDURE INFORMATION: Exam: PET/CT Skull Base to Mid-thigh Exam date and time: 06/20/2024 2:12 PM Age: 68 years old Clinical indication: Condition or disease; Primary cancer: Lung cancer rul; Follow-up oncological assessment; Prior surgery; Surgery date: 6+ months; Surgery type: Port; Additional info: [facility] LABS AND CLINICAL REPORTS: Glucose: 83 mg/dl Treatment strategy for malignancy (PET staging): Restaging (PS) TECHNIQUE: Imaging protocol: Following at least four-hour fasting and following the injection of radiopharmaceutical, low dose CT images were obtained. Then, PET images were obtained. Attenuation corrected images were constructed using the CT scan. Fused images of PET and CT were reviewed. The standardized uptake values (SUV) reported below are maximum values within a region of interest, expressed in gm/ml. Exam includes orbital meatal line to mid-thigh. Radiopharmaceutical: 11.61 mCi F-18 FDG (Fluorodeoxyglucose), IV. Time of imaging post radiopharmaceutical administration: 1 hour Injection site: RIGHT AC COMPARISON: PET skull to thigh 04/14/2023 FINDINGS: Tubes, catheters and devices: Port catheter placed via the right internal jugular vein terminates in the superior vena cava. Brain: Normal physiologic uptake. Pharynx: No abnormal uptake. Larynx: No abnormal uptake. Lungs, pleura and trachea: Primary tumor in the right upper lobe decreased from 6.7 x 4.5 cm with persistent central necrosis with highest peripheral uptake of 20.8 SUV, previously 26.3 SUV. Multiple FDG avid nodules scattered in the right lung ranging in size between 2 mm and 12 mm with the highest uptake 9.2 SUV are suspicious for metastases. Persistent severe paraseptal emphysema in the upper lobes. No pleural effusion. Heart: Unremarkable. Mediastinal space: No abnormal uptake. Liver: No abnormal uptake. Maximum uptake is 4.3 SUV. Stable 1.2 cm simple cyst in the segment 5 on series 202, image 216. Gallbladder and biliary ducts: No abnormal uptake. No calcified gallstones. Pancreas: No abnormal uptake. Spleen: No abnormal uptake. No splenomegaly. Multiple small calcified granulomas Adrenal glands: Increased bilateral adrenal metastases measure 4.7 x 4 cm/15.5 SUV on the right side (previously 5 x 3 cm/10.6 SUV), and 4.7 x 4.3 SUV/18 SUV on the left side (previously 2.7 x 2.3 cm/11.9 SUV. Kidneys and ureters: Normal physiologic uptake. No hydronephrosis. Stable 8 cm simple cyst exophytic anteriorly from the midpole of the left kidney. Stomach and bowel: No abnormal uptake. Large stool burden in the colon for clinical correlation with constipation. Vasculature: No abnormal uptake. No aortic aneurysm. Lymph nodes: No FDG avid lymphadenopathy in the neck, chest, abdomen, pelvis, and extremities. Skeleton: Multiple new small FDG avid metastases (in the left clavicular head measuring 7.2 SUV, in each scapula measuring 14.1 SUV on left side and 11.4 SUV on the right side, in the sternum measuring 4 SUV, in the left posterior lamina of T1 measuring 7.9 SUV, in the left transverse process of S1 measuring 13.5 SUV, in bilateral iliac bones measuring 9.6 SUV on the right side and 9.9 SUV on the left side, in the left humeral neck measuring 5.7 SUV). Sclerosis in T5 and T6 vertebral bodies with no abnormal uptake in place of successfully treated disease. Soft tissues: New 1 cm metastasis in the right ischial anal fossa (series 202, image 107) measures 17.6 SUV. Other soft tissue metastases previously noted laterally to the liver and behind the cecum in the right lower quadrant have resolved. PET/PET skull to thigh [id number] [id number] IMPRESSION: No metabolic response in the primary tumor in the right upper lobe. Progressive disseminated metastatic with multiple new bone metastases, multiple new small metastases in the right lung, progressive bilateral adrenal metastases, and new soft tissue metastasis.
[2024-06-24 10:00] LABS: Basophils # 0.1 10^3/uL (0.0-0.1); Basophils % 0.5 %; Eosinophils # 0.1 10^3/uL (0.0-0.8); Eosinophils % 1.2 %; Hematocrit 40.3 % (37-53); Lymphocytes # 0.8 10^3/uL (0.8-4.8); Lymphocytes % 8.4 %; Mean Corpuscular Hemoglobin 29.7 pg (27-33); Mean Corpuscular Volume 92.6 fl (82-101); Mean Platelet Volume 10.1 fL (7.4-10.4); Monocytes # 0.9 10^3/uL (0.2-0.9); Neutrophils % 79.6 %; Nucleated Red Blood Cells % 0 %; Platelet Count 334 10^3/cmm (157-399); Red Blood Count 4.35 10^6/uL (3.85-5.65); Red Cell Distribution Width 14.6 % (12.1-15.1)
[2024-06-24 10:18] LABS: Alanine Aminotransferase 15 U/L (0-41); Albumin Level 3.9 g/dL (3.5-5.2); Alkaline Phosphatase 101 U/L (40-130); Anion Gap 13.3 (5-19); Aspartate Amino Transferase 16 U/L (0-40); Blood Urea Nitrogen 20 mg/dL (8-23); Calcium 8.5 mg/dL (8.5-10.5); Carbon Dioxide 29 mmol/L (22-29); Chloride 100 mmol/L (98-107); Creatinine Clr Calc Pharmacy 76.8791; Glomerular Filtration Rate 73.9 mL/min (90-130); Glucose 125 mg/dL (65-115); Osmolality Calculated 290 mOsm/kg (285-295); Potassium 4.3 mmol/L (3.5-5.1); Sodium 138 mmol/L (136-145); Total Bilirubin 0.3 mg/dL (0.15-1.2); Total Protein 6.9 g/dL (6.6-8.7)
== END 2024-07-05 23:59 | disposition home or self-care (01) ==
PROVIDERS: Internal Medicine Medical Oncology; PCP Family Medicine; Visit Provider Nurse Practitioner Family
DX: Z53.9 Procedure and treatment not carried out, unspecified reason; C34.11 Malignant neoplasm of upper lobe, right bronchus or lung; C79.72 Secondary malignant neoplasm of left adrenal gland; C79.51 Secondary malignant neoplasm of bone; C78.02 Secondary malignant neoplasm of left lung; C79.89 Secondary malignant neoplasm of other specified sites
CPT/HCPCS: 36591; 78815; 80053; 85025; 99213; 99214; A9552

== ENCOUNTER 2024-07-08 09:11 | Oncology outpatient (recurring) (ONCR) | payer MEDICARE, SELFPAY ==
[2024-07-08 09:58] LABS: Basophils # 0.1 10^3/uL (0.0-0.1); Basophils % 0.5 %; Eosinophils # 0.1 10^3/uL (0.0-0.8); Eosinophils % 0.8 %; Hematocrit 39.4 % (37-53); Lymphocytes # 0.7 10^3/uL (0.8-4.8); Mean Corpuscular HGB Conc 31.5 g/dL (30-55); Mean Corpuscular Hemoglobin 29.2 pg (27-33); Mean Corpuscular Volume 92.7 fl (82-101); Mean Platelet Volume 9.9 fL (7.4-10.4); Monocytes % 10.2 %; Neutrophils # 7.77 10^3/uL (1.8-7.7); Neutrophils % 81.1 %; Nucleated Red Blood Cells % 0 %; Platelet Count 339 10^3/cmm (157-399); Red Blood Count 4.25 10^6/uL (3.85-5.65); Red Cell Distribution Width 14.2 % (12.1-15.1); White Blood Count 9.59 10^3/uL (3.29-11.43)
[2024-07-08 10:18] LABS: Alanine Aminotransferase 14 U/L (0-41); Albumin Level 3.7 g/dL (3.5-5.2); Alkaline Phosphatase 107 U/L (40-130); Anion Gap 15.7 (5-19); Aspartate Amino Transferase 16 U/L (0-40); Blood Urea Nitrogen 22 mg/dL (8-23); Calcium 8.9 mg/dL (8.5-10.5); Carbon Dioxide 27 mmol/L (22-29); Chloride 98 mmol/L (98-107); Creatinine Clr Calc Pharmacy 82.0828; Globulin 3.2 g/dL (1.3-4.6); Glomerular Filtration Rate 73.9 mL/min (90-130); Glucose 122 mg/dL (65-115); Osmolality Calculated 287 mOsm/kg (285-295); Potassium 4.7 mmol/L (3.5-5.1); Sodium 136 mmol/L (136-145); Total Bilirubin 0.4 mg/dL (0.15-1.2); Total Protein 6.9 g/dL (6.6-8.7)
[2024-07-08] MEDS: zoledronic acid (Zometa) 4 MG/100 ML PIGGYBACK 400 MG IV (11:06)
[2024-07-08] MEDS: pembrolizumab 200 MG in sodium chloride 0.9% 250 ML 516 MG IV (11:56)
[2024-07-08 12:28] VITALS: BP 108/57; PULSE 52; TEMP 36.7; O2SAT 90
== END 2024-07-08 23:59 | disposition home or self-care (01) ==
PROVIDERS: Nurse Practitioner Family; PCP Family Medicine; Visit Provider Internal Medicine Medical Oncology
DX: Z51.12 Encounter for antineoplastic immunotherapy (principal); C34.11 Malignant neoplasm of upper lobe, right bronchus or lung; Z79.899 Other long term (current) drug therapy
CPT/HCPCS: 80053; 85025; 96367; 96413; 99214; J3489; J7050; J9271

== ENCOUNTER 2024-07-28 09:07 | Oncology outpatient (recurring) (ONCR) | payer MEDICARE, SELFPAY ==
[2024-07-28 10:06] LABS: Basophils % 0.1 %; Eosinophils % 0.2 %; Lymphocytes # 0.6 10^3/uL (0.8-4.8); Lymphocytes % 4.3 %; Mean Corpuscular Hemoglobin 29.7 pg (27-33); Mean Corpuscular Volume 92.8 fl (82-101); Mean Platelet Volume 9.7 fL (7.4-10.4); Monocytes # 1.2 10^3/uL (0.2-0.9); Monocytes % 8.1 %; Neutrophils % 86.1 %; Nucleated Red Blood Cells % 0 %; Platelet Count 340 10^3/cmm (157-399); Red Blood Count 4.31 10^6/uL (3.85-5.65); Red Cell Distribution Width 13.8 % (12.1-15.1); White Blood Count 14.52 10^3/uL (3.29-11.43)
[2024-07-28 10:41] LABS: Alanine Aminotransferase 31 U/L (0-41); Albumin Level 3.5 g/dL (3.5-5.2); Alkaline Phosphatase 97 U/L (40-130); Anion Gap 14.6 (5-19); Aspartate Amino Transferase 20 U/L (0-40); Blood Urea Nitrogen 30 mg/dL (8-23); Calcium 8.7 mg/dL (8.5-10.5); Carbon Dioxide 25 mmol/L (22-29); Chloride 105 mmol/L (98-107); Creatinine Clr Calc Pharmacy 74.2198; Globulin 3.2 g/dL (1.3-4.6); Glomerular Filtration Rate 66.2 mL/min (90-130); Glucose 136 mg/dL (65-115); Osmolality Calculated 298 mOsm/kg (285-295); Potassium 4.6 mmol/L (3.5-5.1); Sodium 140 mmol/L (136-145); Thyroid Stimulating Hormone 1.53 uIU/mL (0.27-4.20); Total Bilirubin 0.3 mg/dL (0.15-1.2); Total Protein 6.7 g/dL (6.6-8.7)
[2024-07-28] MEDS: pembrolizumab 200 MG in sodium chloride 0.9% 250 ML 516 MG IV (11:12)
[2024-07-28 11:58] VITALS: BP 127/73; PULSE 52; RESP 17; TEMP 36.3; O2SAT 94
== END 2024-07-28 23:59 | disposition home or self-care (01) ==
PROVIDERS: PCP Family Medicine; Visit Provider Nurse Practitioner Family
DX: Z51.12 Encounter for antineoplastic immunotherapy (principal); C34.11 Malignant neoplasm of upper lobe, right bronchus or lung; C79.51 Secondary malignant neoplasm of bone; Z95.828 Presence of other vascular implants and grafts; F17.210 Nicotine dependence, cigarettes, uncomplicated; Z92.3 Personal history of irradiation; Z79.899 Other long term (current) drug therapy; C79.70 Secondary malignant neoplasm of unspecified adrenal gland
CPT/HCPCS: 80053; 84443; 85025; 96413; 99214; A4222; J7050; J9271

== ENCOUNTER 2024-08-18 08:16 | Oncology outpatient (recurring) (ONCR) | payer MEDICARE, SELFPAY ==
[2024-08-18 08:49] LABS: Basophils % 0.3 %; Eosinophils # 0.1 10^3/uL (0.0-0.8); Eosinophils % 0.8 %; Hematocrit 36.5 % (37-53); Lymphocytes # 0.4 10^3/uL (0.8-4.8); Lymphocytes % 4.8 %; Mean Corpuscular HGB Conc 31.5 g/dL (30-55); Mean Corpuscular Hemoglobin 29.2 pg (27-33); Mean Corpuscular Volume 92.6 fl (82-101); Mean Platelet Volume 9.7 fL (7.4-10.4); Monocytes # 0.7 10^3/uL (0.2-0.9); Monocytes % 8.5 %; Nucleated Red Blood Cells % 0 %; Platelet Count 357 10^3/cmm (157-399); Red Blood Count 3.94 10^6/uL (3.85-5.65); Red Cell Distribution Width 13.6 % (12.1-15.1); White Blood Count 7.76 10^3/uL (3.29-11.43)
[2024-08-18 09:12] LABS: Alanine Aminotransferase 20 U/L (0-41); Albumin Level 3.1 g/dL (3.5-5.2); Alkaline Phosphatase 119 U/L (40-130); Anion Gap 15.6 (5-19); Aspartate Amino Transferase 19 U/L (0-40); Blood Urea Nitrogen 21 mg/dL (8-23); Calcium 8.4 mg/dL (8.5-10.5); Carbon Dioxide 25 mmol/L (22-29); Chloride 101 mmol/L (98-107); Creatinine Clr Calc Pharmacy 81.4656; Glomerular Filtration Rate 73.9 mL/min (90-130); Glucose 150 mg/dL (65-115); Osmolality Calculated 290 mOsm/kg (285-295); Potassium 4.6 mmol/L (3.5-5.1); Sodium 137 mmol/L (136-145); Thyroid Stimulating Hormone 1.36 uIU/mL (0.27-4.20); Total Bilirubin 0.3 mg/dL (0.15-1.2); Total Protein 6.1 g/dL (6.6-8.7)
[2024-08-18] MEDS: pembrolizumab 200 MG in sodium chloride 0.9% 250 ML 516 MG IV (09:59)
[2024-08-18] MEDS: zoledronic acid (Zometa) 4 MG/100 ML PIGGYBACK 400 MG IV (10:56)
[2024-08-18 11:21] LABS: Bilirubin Urine Negative (Negative); Blood Urine Negative (Negative); Glucose Urine UA Negative (Normal); Ketones Urine Trace (Negative); Leukocyte Esterase Urine Negative (Negative); Nitrate Urine Negative (Negative); Protein Urine Trace (Negative); Specific Gravity, Urine 1.024 (1.005-1.030); Urine Appearance Clear (CLEAR); Urine Color Yellow (Yellow)
[2024-08-18 11:23] VITALS: BP 119/66; PULSE 57; RESP 18; O2SAT 94
[2024-08-18 11:26] LABS: Add Urine Microscopic? YES; Bacteria Urine None Seen /hpf; Hyaline Casts Urine 0.81 /lpf; RBC Urine 0-2 /hpf (0-2); Squamous Epithelial Cell Urine 0-5 /hpf (0-5); WBC Urine 0-5 /hpf (0-5)
== END 2024-08-18 23:59 | disposition home or self-care (01) ==
PROVIDERS: Internal Medicine Medical Oncology; PCP Family Medicine; Visit Provider Nurse Practitioner Family
DX: C34.11 Malignant neoplasm of upper lobe, right bronchus or lung (principal); C79.51 Secondary malignant neoplasm of bone; C79.72 Secondary malignant neoplasm of left adrenal gland; C79.71 Secondary malignant neoplasm of right adrenal gland; C78.02 Secondary malignant neoplasm of left lung; C79.89 Secondary malignant neoplasm of other specified sites; I48.0 Paroxysmal atrial fibrillation; I25.5 Ischemic cardiomyopathy; F17.210 Nicotine dependence, cigarettes, uncomplicated; I42.8 Other cardiomyopathies; Z79.899 Other long term (current) drug therapy; Z51.12 Encounter for antineoplastic immunotherapy
CPT/HCPCS: 80053; 81001; 84443; 85025; 96365; 96413; 99214; A4222; J3489; J7050; J9271

== ENCOUNTER 2024-09-08 12:54 | Oncology outpatient (recurring) (ONCR) | payer MEDICARE, SELFPAY ==
[2024-09-08 13:43] LABS: Basophils % 0.4 %; Eosinophils # 0.1 10^3/uL (0.0-0.8); Eosinophils % 0.5 %; Hematocrit 34.5 % (37-53); Lymphocytes # 0.6 10^3/uL (0.8-4.8); Lymphocytes % 6.2 %; Mean Corpuscular HGB Conc 31.6 g/dL (30-55); Mean Corpuscular Hemoglobin 27.8 pg (27-33); Mean Platelet Volume 9.2 fL (7.4-10.4); Monocytes % 10.5 %; Neutrophils # 7.87 10^3/uL (1.8-7.7); Neutrophils % 81.7 %; Nucleated Red Blood Cells % 0 %; Platelet Count 451 10^3/cmm (157-399); Red Blood Count 3.92 10^6/uL (3.85-5.65); Red Cell Distribution Width 14.1 % (12.1-15.1); White Blood Count 9.64 10^3/uL (3.29-11.43)
[2024-09-08 14:13] LABS: Alanine Aminotransferase 14 U/L (0-41); Albumin Level 3.2 g/dL (3.5-5.2); Alkaline Phosphatase 105 U/L (40-130); Aspartate Amino Transferase 20 U/L (0-40); Blood Urea Nitrogen 23 mg/dL (8-23); Calcium 8.5 mg/dL (8.5-10.5); Carbon Dioxide 26 mmol/L (22-29); Chloride 98 mmol/L (98-107); Creatinine Clr Calc Pharmacy 77.2318; Globulin 3.1 g/dL (1.3-4.6); Glomerular Filtration Rate 73.9 mL/min (90-130); Glucose 140 mg/dL (65-115); Osmolality Calculated 290 mOsm/kg (285-295); Sodium 137 mmol/L (136-145); Thyroid Stimulating Hormone 2.38 uIU/mL (0.27-4.20); Total Bilirubin 0.5 mg/dL (0.15-1.2); Total Protein 6.3 g/dL (6.6-8.7)
[2024-09-08] MEDS: ipratropium-albuterol 3 mL Neb INHALATION (15:20)
[2024-09-08] MEDS: sodium chloride 0.9% 500 ML 999 ML IV (15:20)
[2024-09-08] MEDS: pembrolizumab 200 MG in sodium chloride 0.9% 250 ML 516 MG IV (15:45)
[2024-09-08 16:32] VITALS: BP 108/70; PULSE 64; RESP 16; TEMP 36.6; O2SAT 94
== END 2024-09-08 23:59 | disposition home or self-care (01) ==
PROVIDERS: Internal Medicine Medical Oncology; PCP Family Medicine; Visit Provider Nurse Practitioner Family
DX: Z51.12 Encounter for antineoplastic immunotherapy (principal); C34.11 Malignant neoplasm of upper lobe, right bronchus or lung; C79.31 Secondary malignant neoplasm of brain; J43.9 Emphysema, unspecified; Z92.3 Personal history of irradiation; G89.3 Neoplasm related pain (acute) (chronic); R63.4 Abnormal weight loss; R53.83 Other fatigue; Z68.21 Body mass index [BMI] 21.0-21.9, adult; Z86.79 Personal history of other diseases of the circulatory system; Z95.828 Presence of other vascular implants and grafts
CPT/HCPCS: 80053; 84443; 85025; 96360; 96361; 96413; 96415; 99214; A4222; J7040; J7050; J9271

== ENCOUNTER 2024-09-12 09:12 | Oncology outpatient (recurring) (ONCR) | payer MEDICARE, SELFPAY ==
--- NOTE | 2024-09-12 09:00 | PETR_ITS ---
PROCEDURE INFORMATION: Exam: PET/CT Skull Base to Mid-thigh Exam date and time: 09/12/2024 10:13 AM Age: 68 years old Clinical indication: Condition or disease; Primary cancer: Lung cancer rul malignant neoplasm of brain; Follow-up oncological assessment; Prior surgery; Surgery date: 1-6 months; Surgery type: Port; Additional info: Compare to previous LABS AND CLINICAL REPORTS: Glucose: 138 mg/dl Treatment strategy for malignancy (PET staging): Restaging (PS) TECHNIQUE: Imaging protocol: Following at least four-hour fasting and following the injection of radiopharmaceutical, low dose CT images were obtained. Then, PET images were obtained. Attenuation corrected images were constructed using the CT scan. Fused images of PET and CT were reviewed. The standardized uptake values (SUV) reported below are maximum values within a region of interest, expressed in gm/ml. Exam includes orbital meatal line to mid-thigh. SUV normalization method: BodyWeight Radiopharmaceutical: 11.5 mCi F-18 FDG (Fluorodeoxyglucose), IV. Time of imaging post radiopharmaceutical administration: 50 minutes Injection site: right ac COMPARISON: PT PET skull to thigh [id number] 06/20/2024 FINDINGS: Tubes, catheters and devices: Port catheter placed via the right internal jugular vein terminates in the superior vena cava. Brain: Normal physiologic uptake. Pharynx: No abnormal uptake. Larynx: No abnormal uptake. Lungs, pleura and trachea: The primary tumor in the right upper lobe containing a significant anterior inferior cavitation suggestive of sequela of necrosis shows persistent peripheral rim of intense uptake currently measuring 21.7 SUV, previously 20.8 SUV. It has not significantly changed in size including the uppermost solid portion measuring about 4.1 x 2.5 cm as seen on axial image 112. There are persistent numerable nodules in the right upper and lower lobes with overall decreased in uptake and some decrease in the size of the largest conglomerate inferiorly in the right upper lobe present on axial image 133 with decrease in uptake from 7.1 SUV to 4.3 SUV. Maximum uptake in the dependent aspect of the right lower lobe decreased from 3.6 SUV to 1.9 SUV suggestive of proved inflammatory finding. No lung nodules or masses in the left lung. Persistent severe paraseptal emphysema in bilateral upper lungs. No pleural effusion. Heart: No abnormal uptake.There is no cardiomegaly. Coronary artery calcification is present. There is no pericardial effusion. Mediastinal space: No abnormal uptake. Liver: No abnormal uptake. Maximum uptake is 3.1 SUV. Stable 1 cm simple cyst in the segment 5. Gallbladder and biliary ducts: No abnormal uptake. No calcified gallstone. Pancreas: No abnormal uptake. Spleen: No abnormal uptake. No splenomegaly. Adrenal glands: Bilateral adrenal metastases increased in size and slightly decreased in uptake with progressive central necrosis. The left adrenal metastasis measures 6.1 x 5.8 cm/13.4 SUV, previously 5.3 x 5.1 cm/18 SUV. Right adrenal metastasis measures 7.3 x 4.9 cm/10.5 SUV, previously 5.2 x 3.9 cm/15.5 SUV. Kidneys and ureters: Normal physiologic uptake. No hydronephrosis. Stable 7.5 cm simple cyst exophytic anteriorly from the midpole of the left kidney. Stomach and bowel: Small nodular focus of increased uptake of 6.9 SUV in the sigmoid colon on axial image 283 probably persists since prior exam when higher uptake of 8.7 SUV was present in the similar location on axial image 290. No abnormal dilatation of the bowel. Persistent large amount of stool in the rectosigmoid and the left colon for clinical correlation with constipation. Vasculature: No abnormal uptake. No aortic aneurysm. Lymph nodes: No FDG avid lymphadenopathy in the neck, chest, abdomen, pelvis, and extremities. Skeleton: There are progressive bone metastases. Previously present lesions increased in size and uptake with many lesions doubling in size. For example, metastasis in the left side of the sacrum on axial image 261 increased from 1.8 cm/13.5 SUV to 3.6 cm/16.5 SUV. Metastasis in the neck of the left femur on axial image 302 increased from 1 cm/5.7 SUV to 2 cm/11.5 SUV. There are multiple new bone metastases (in C7, right transverse process of T1, T9, T11, L3 L5, right femoral neck, right anterior acetabulum, left inferior pubic ramus, left humeral head, right 8th rib, left 7th and 8th ribs). Soft tissues: Stable in size 1 cm metastasis in the right ischioanal fossa on axial image 311 increased in uptake from 17.6 SUV to 23.4 SUV. There is new peripherally hypermetabolic centrally photopenic finding within the right gluteal muscle medially overlying the right ischial tuberosity with the highest uptake of 4.5 SUV suggestive of benign inflammatory or posttraumatic finding for clinical correlation. PET/PET skull to thigh [id number] [id number] IMPRESSION: 1. In comparison with 06/20/2024 there is further progressive disease with increased size of large bilateral adrenal metastases, and significantly increased size and number of bone metastases some of which have doubled in size. The primary tumor in the right upper lung is stable with no metabolic response. There is metabolic progression in morphologically stable small soft tissue metastasis in the right ischioanal fossa. 2. New FDG avid abnormality in the right gluteal muscle appears inflammatory/posttraumatic rather than malignant in nature for clinical correlation.
== END 2024-10-03 23:59 | disposition home or self-care (01) ==
LOC: ONCMED 09:12 → RAD 09:13 → ONCMED 09-15 10:18
PROVIDERS: PCP Family Medicine; Visit Provider Nurse Practitioner Family
DX: C34.11 Malignant neoplasm of upper lobe, right bronchus or lung (principal); C79.51 Secondary malignant neoplasm of bone; Z53.9 Procedure and treatment not carried out, unspecified reason; C79.72 Secondary malignant neoplasm of left adrenal gland; C79.71 Secondary malignant neoplasm of right adrenal gland; C78.02 Secondary malignant neoplasm of left lung; C79.89 Secondary malignant neoplasm of other specified sites; I48.0 Paroxysmal atrial fibrillation; I25.5 Ischemic cardiomyopathy; F17.210 Nicotine dependence, cigarettes, uncomplicated; I42.8 Other cardiomyopathies; Z79.899 Other long term (current) drug therapy; C79.31 Secondary malignant neoplasm of brain
CPT/HCPCS: 78815; A9552